=== PATIENT | male | born 1985 | race Two or more races ===

== ENCOUNTER 2017-02-19 10:39 | Emergency (ER) | payer BC, OTHER ==
--- NOTE | 2017-02-19 10:58 | EDM.PDOC ---
ED HPI GENERAL MEDICAL PROBLEM - General Chief Complaint: Gastrointestinal Problem Stated Complaint: ? HEMOGLOBIN CHECK Time Seen by Provider: 02/19/17 10:58 Source of Information: Reports: Patient, Old records, RN, RN notes reviewed History Limitations: Reports: No limitations - History of Present Illness INITIAL COMMENTS - FREE TEXT/NARRATIVE: Pt had a live biopsy yesterday, and became concerned due to some mild RUQ tenderness today. He called his doctor and was advised to come to the ER for blood test and US. Denies fever, chills, N/V. Onset: gradual Onset Date: 02/19/17 Duration: Constant Location: Reports: abdomen Quality: Reports: Dull Severity: mild Improves with: Reports: None Worsens with: Reports: None Associated Symptoms: Reports: no other symptoms Right Middle Flank Pain Score (Numeric/FACES): 4 - Related Data Allergies Allergy/AdvReac Type Severity Reaction Status Date / Time bupropion Allergy Cannot Verified 02/19/17 11:40 Remember Home Meds: Home Meds Omeprazole 20 mg PO DAILY 07/07/16 [History] Psyllium Husk [Metamucil] 1 dose PO DAILY PRN 09/04/16 [History] Acetaminophen [Tylenol] 650 mg PO Q4H PRN 09/07/16 [History] Past Medical History HEENT History: Reports: Impaired vision, Other (see below) Other HEENT History: wears glasses Cardiovascular History: Reports: Other (see below) Other Cardiovascular History: mitral valve regurgitation Respiratory History: Reports: None Gastrointestinal History: Reports: GERD, Other (see below) (fatty liver infiltrate) Genitourinary History: Reports: None Musculoskeletal History: Reports: None Neurological History: Reports: None Psychiatric History: Reports: Anxiety, Panic attack Endocrine/Metabolic History: Reports: None Hematologic History: Reports: None Immunologic History: Reports: None Oncologic (Cancer) History: Reports: None Dermatologic History: Reports: None - Infectious Disease History Infectious Disease History: Reports: Chicken pox - Past Surgical History HEENT Surgical History: Reports: None GI Surgical History: Reports: Appendectomy Male Surgical History: Reports: None Social & Family History - Family History Family Medical History: Noncontributory - Tobacco Use Smoking Status *Q: Former Smoker Used Tobacco, but Quit: Yes Month Tobacco Last Used: 10/29/2009 Second Hand Smoke Exposure: No - Caffeine Use Caffeine Use: Reports: Soda - Alcohol Use Days Per Week of Alcohol Use: 7 Number of Drinks Per Day: 1 Total Drinks Per Week: 7 - Recreational Drug Use Recreational Drug Use: No - Living Situation & Occupation Living situation: Reports: Occupation: student (and employed) ED ROS GENERAL - Review of Systems Review Of Systems: ROS reveals no pertinent complaints other than HPI. ED EXAM, GENERAL - Physical Exam Exam: See Below Exam Limited By: No limitations General Appearance: alert, WD/WN, no apparent distress Head: atraumatic, normocephalic Respiratory/Chest: no respiratory distress, lungs clear, normal breath sounds, no accessory muscle use, chest non-tender Cardiovascular: regular rate, rhythm GI/Abdominal: normal bowel sounds, no distention, tender (mild RUQ). No: guarding, rigid, rebound Back Exam: normal inspection. No: CVA tenderness (L), CVA tenderness (R) Extremities: normal inspection Neurological: alert, oriented, CN II-XII intact, normal cognition, normal gait, no motor/sensory deficits Psychiatric: normal affect, normal mood Skin Exam: Warm, Dry, Intact, Normal color, No rash Course - Vital Signs Last Recorded V/S: Last Vital Signs Temp 36.6 C 02/19/17 10:50 Pulse 45 L 02/19/17 12:35 Resp 16 02/19/17 12:35 BP 170/99 H 02/19/17 12:35 Pulse Ox 98 02/19/17 12:35 - Orders/Labs/Meds Labs: Laboratory Tests 02/19/17 02/19/17 02/19/17 Range/Units 11:10 11:10 11:10 WBC 7.7 (5.0-10.0) 10^3/uL RBC 5.35 (4.6-6.2) 10^6/uL Hgb 15.2 (14.0-18.0) g/dL Hct 44.3 (40.0-54.0) % MCV 82.8 (80-100) fL MCH 28.4 (27.0-34.0) pg MCHC 34.3 (33.0-35.0) g/dL Plt Count 220 (150-450) 10^3/uL Neut % (Auto) 50.0 (42.2-75.2) % Lymph % (Auto) 39.4 (20.5-50.1) % [place] % (Auto) 8.2 H (2-8) % Eos % (Auto) 2.0 (1.0-3.0) % Baso % (Auto) 0.4 (0.0-1.0) % PT 10.2 (9.0-12.0) SEC INR 1.0 (0.9-1.2) APTT 25.7 (22.0-34.0) SEC Sodium 138 (135-145) mmol/L Potassium 4.0 (3.6-5.0) mmol/L Chloride 107 (101-111) mmol/L Carbon Dioxide 27.0 (21.0-31.0) mmol/L Anion Gap 8.0 BUN 15 (7-18) mg/dL Creatinine 1.0 (0.6-1.3) mg/dL Est Cr Clr Drug Dosing 125.64 mL/min Estimated GFR (MDRD) > 60 BUN/Creatinine Ratio 15.00 Glucose 101 (74-105) mg/dL Calcium 9.6 (8.4-10.2) mg/dl Total Bilirubin 0.6 (0.2-1.0) mg/dL AST 49 H (10-42) IU/L ALT 110 H (10-60) IU/L Alkaline Phosphatase 102 (42-121) IU/L Total Protein 7.1 (6.7-8.2) g/dl Albumin 4.4 (3.2-5.5) g/dl Globulin 2.7 Albumin/Globulin Ratio 1.63 Amylase 37 (28-100) U/L Lipase 30 (22-51) U/L Urine Color (YELLOW) Urine Appearance (CLEAR) Urine pH (5.0-9.0) Ur Specific [place] (1.005-1.030) Urine Protein (NEGATIVE) Urine Glucose (UA) (NEGATIVE) Urine Ketones (NEGATIVE) Urine Occult Blood (NEGATIVE) Urine Nitrite (NEGATIVE) Urine Bilirubin (NEGATIVE) Urine Urobilinogen (0.2-1.0) mg/dL Ur Leukocyte Esterase (NEGATIVE) Urine RBC /HPF Urine WBC (0-5/HPF) /HPF Ur Epithelial Cells /HPF Urine Bacteria (0-FEW/HPF) /HPF Urine Opiates Screen (NEGATIVE) Ur Oxycodone Screen (NEGATIVE) Urine Methadone Screen (NEGATIVE) Ur Barbiturates Screen (NEGATIVE) U Tricyclic Antidepress (NEGATIVE) Ur Phencyclidine Scrn (NEGATIVE) Ur Amphetamine Screen (NEGATIVE) U Methamphetamines Scrn (NEGATIVE) Urine MDMA Screen (NEGATIVE) U Benzodiazepines Scrn (NEGATIVE) Urine Cocaine Screen (NEGATIVE) U Marijuana (THC) Screen (NEGATIVE) 02/19/17 02/19/17 Range/Units 11:28 11:28 WBC (5.0-10.0) 10^3/uL RBC (4.6-6.2) 10^6/uL Hgb (14.0-18.0) g/dL Hct (40.0-54.0) % MCV (80-100) fL MCH (27.0-34.0) pg MCHC (33.0-35.0) g/dL Plt Count (150-450) 10^3/uL Neut % (Auto) (42.2-75.2) % Lymph % (Auto) (20.5-50.1) % [place] % (Auto) (2-8) % Eos % (Auto) (1.0-3.0) % Baso % (Auto) (0.0-1.0) % PT (9.0-12.0) SEC INR (0.9-1.2) APTT (22.0-34.0) SEC Sodium (135-145) mmol/L Potassium (3.6-5.0) mmol/L Chloride (101-111) mmol/L Carbon Dioxide (21.0-31.0) mmol/L Anion Gap BUN (7-18) mg/dL Creatinine (0.6-1.3) mg/dL Est Cr Clr Drug Dosing mL/min Estimated GFR (MDRD) BUN/Creatinine Ratio Glucose (74-105) mg/dL Calcium (8.4-10.2) mg/dl Total Bilirubin (0.2-1.0) mg/dL AST (10-42) IU/L ALT (10-60) IU/L Alkaline Phosphatase (42-121) IU/L Total Protein (6.7-8.2) g/dl Albumin (3.2-5.5) g/dl Globulin Albumin/Globulin Ratio Amylase (28-100) U/L Lipase (22-51) U/L Urine Color Yellow (YELLOW) Urine Appearance Clear (CLEAR) Urine pH 5.5 (5.0-9.0) Ur Specific [place] 1.025 (1.005-1.030) Urine Protein Negative (NEGATIVE) Urine Glucose (UA) Negative (NEGATIVE) Urine Ketones Negative (NEGATIVE) Urine Occult Blood Negative (NEGATIVE) Urine Nitrite Negative (NEGATIVE) Urine Bilirubin Negative (NEGATIVE) Urine Urobilinogen 0.2 (0.2-1.0) mg/dL Ur Leukocyte Esterase Negative (NEGATIVE) Urine RBC 0-5 /HPF Urine WBC 0-5 (0-5/HPF) /HPF Ur Epithelial Cells Occasional /HPF Urine Bacteria Few (0-FEW/HPF) /HPF Urine Opiates Screen Negative (NEGATIVE) Ur Oxycodone Screen Negative (NEGATIVE) Urine Methadone Screen Negative (NEGATIVE) Ur Barbiturates Screen Negative (NEGATIVE) U Tricyclic Antidepress Negative (NEGATIVE) Ur Phencyclidine Scrn Negative (NEGATIVE) Ur Amphetamine Screen Negative (NEGATIVE) U Methamphetamines Scrn Negative (NEGATIVE) Urine MDMA Screen Negative (NEGATIVE) U Benzodiazepines Scrn Negative (NEGATIVE) Urine Cocaine Screen Negative (NEGATIVE) U Marijuana (THC) Screen Positive H (NEGATIVE) - Radiology Interpretation Free Text/Narrative:: US RUQ: post-biopsy changes, no hemorrhage; see Rad. report. Departure - Departure Time of Disposition: 12:21 Disposition: Home, Self-Care 01 Condition: good Clinical Impression: History of liver biopsy, Postop check Instructions: Liver Biopsy, Care After, [id number], Liver Biopsy, Nonalcoholic Fatty Liver Disease Diet Forms: ED Department Discharge Additional Instructions: Rx: Zofran 4mg Follow up with your doctor as previously planned.
[2017-02-19 11:38] LABS: CHLORIDE,CL 107 mmol/L (101-111); SODIUM,NA 138 mmol/L (135-145)
[2017-02-19 12:37] VITALS: BP 170/99
== END 2017-02-19 12:34 | disposition home or self-care (01) ==
LOC: DL.ED 10:39
DX: G89.18 Other acute postprocedural pain (principal); R10.11 Right upper quadrant pain; K21.9 Gastro-esophageal reflux disease without esophagitis; Z90.89 Acquired absence of other organs; Z98.890 Other specified postprocedural states; Z79.899 Other long term (current) drug therapy; Z88.8 Allergy status to other drugs, medicaments and biological substances
CPT/HCPCS: 36415; 76705; 80053; 80305; 81001; 82150; 83690; 85025; 85610; 85730; 99284

== ENCOUNTER 2017-12-22 07:29 | Emergency (ER) | payer BC, OTHER ==
[2017-12-22 08:04] VITALS: BP 140/79
--- NOTE | 2017-12-22 08:25 | EDM.PDOC ---
ED HPI GENERAL MEDICAL PROBLEM - General Chief Complaint: Abdominal Pain Stated Complaint: DOESNT FEEL GOOD [id number] Time Seen by Provider: 12/22/17 08:10 Source of Information: Reports: Patient, RN, RN Notes Reviewed History Limitations: Reports: No Limitations - History of Present Illness INITIAL COMMENTS - FREE TEXT/NARRATIVE: Rocael 32 yo male who presents to the ED today due to pain in his right groin area that started last night. Reports that the pain has been off and on since that time. This am when he woke up he started feeling dizzy and like he was going to pass out. He relates that he started to develop generalized abd pain at that time as well. He reports that this feels like his prior reflux sx that he has had in the past. Has not taken his priolsec yet this am. Patient denies flank pain, hematuria, or dysuria. Reports nausea no emesis. He further reports that he has has sinus congestion for the last couple days and has been medicating himself with claratin OTC. Reports runny nose and sinus congestion. Denies fever or body aches. Onset: Sudden Onset Date: 12/21/17 Onset Time: 20:00 Duration: Getting Worse, Intermittent Location: Reports: Abdomen, Other (right groin) Quality: Reports: Burning, Sharp Severity: Moderate Improves with: Reports: None Worsens with: Reports: Rest Context: Reports: Lifting (reports that he does lift weights) Associated Symptoms: Reports: Chest Pain, Nausea/Vomiting, Weakness Right Groin Pain Score (Numeric/FACES): 7 - Related Data Allergies Allergy/AdvReac Type Severity Reaction Status Date / Time bupropion Allergy Cannot Verified 02/19/17 11:40 Remember Home Meds: Home Meds Omeprazole 20 mg PO DAILY 07/07/16 [History] Psyllium Husk [Metamucil] 1 dose PO DAILY PRN 09/04/16 [History] Acetaminophen [Tylenol] 650 mg PO Q4H PRN 09/07/16 [History] Past Medical History HEENT History: Reports: Impaired Vision, Other (See Below) Other HEENT History: wears glasses Cardiovascular History: Reports: Other (See Below) Other Cardiovascular History: mitral valve regurgitation Respiratory History: Reports: None Gastrointestinal History: Reports: GERD (Takes prilosec at home) Other Gastrointestinal History: fatty liver with elevated lft's Genitourinary History: Reports: None Musculoskeletal History: Reports: None Neurological History: Reports: None Psychiatric History: Reports: Anxiety, Panic Attack Endocrine/Metabolic History: Reports: None Hematologic History: Reports: None Immunologic History: Reports: None Oncologic (Cancer) History: Reports: None Dermatologic History: Reports: None - Infectious Disease History Infectious Disease History: Reports: Chicken Pox - Past Surgical History Male Surgical History: Reports: None Musculoskeletal Surgical History: Reports: Other (See Below) Other Musculoskeletal Surgeries/Procedures:: Fracture right arm Social & Family History - Family History Family Medical History: Noncontributory - Tobacco Use Smoking Status *Q: Never Smoker Used Tobacco, but Quit: Yes Month Tobacco Last Used: 10/29/2009 Second Hand Smoke Exposure: No - Caffeine Use Caffeine Use: Reports: Coffee, Energy Drinks, Soda, Tea - Alcohol Use Days Per Week of Alcohol Use: 2 Number of Drinks Per Day: 6 Total Drinks Per Week: 12 - Recreational Drug Use Recreational Drug Use: Yes Recreational Drug Type: Reports: Marijuana/Hashish - Living Situation & Occupation Living situation: Reports: Occupation: Student ED ROS GENERAL - Review of Systems Review Of Systems: ROS reveals no pertinent complaints other than HPI. ED EXAM, GI/ABD - Physical Exam Exam: See Below Exam Limited By: No Limitations General Appearance: Alert, WD/WN, No Apparent Distress Eyes: Bilateral: Normal Appearance Ears: Normal External Exam, Other (redness noted to left external ear cannal- patient reports q-tip usage) Nose: Normal Inspection, Normal Mucosa Throat/Mouth: Normal Inspection, Normal Lips, Normal Oropharynx Head: Atraumatic, Normocephalic Neck: Normal Inspection, Supple Respiratory/Chest: No Respiratory Distress, Lungs Clear, Normal Breath Sounds, No Accessory Muscle Use Cardiovascular: Normal Peripheral Pulses, Regular Rate, Rhythm, No Gallop, No Murmur, No Rub GI/Abdominal Exam: Normal Bowel Sounds, Soft, Non-Tender, No Organomegaly, No Distention, Tender (Generalized tenderness with palpation ) (Male) Exam: No Hernia, Normal Inspection Rectal (Males) Exam: Deferred Extremities: Normal Inspection, Normal Range of Motion, Normal Capillary Refill Neurological: Alert, Oriented, CN II-XII Intact Psychiatric: Normal Affect, Normal Mood Skin Exam: Warm, Dry Lymphatic: No Adenopathy EKG INTERPRETATION EKG Date: 12/22/17 Time: 08:16 Rhythm: NSR Rate (Beats/Min): 78 [place]: Normal P-Wave: Present QRS: Normal ST-T: Normal QT: Normal Comparison: No Change Course - Vital Signs Last Recorded V/S: Last Vital Signs Temp 98.6 F 12/22/17 08:04 Pulse 73 12/22/17 08:04 Resp 16 12/22/17 08:04 BP 140/79 12/22/17 08:04 Pulse Ox 97 12/22/17 08:04 - Orders/Labs/Meds Orders: Active Orders 24 hr Category Date Time Status EKG Documentation Completion [RC] STAT Care 12/22/17 08:18 Active Peripheral IV Care [RC] . DIRECTED Care 12/22/17 08:19 Active Abdomen Pelvis w Cont [CT] Urgent Exams 12/22/17 09:21 Taken Sodium Chloride 0.9% [Saline Flush] Med 12/22/17 08:18 Active 10 ml FLUSH ASDIRECTED PRN Peripheral IV Insertion Adult [OM.PC] Stat Oth 12/22/17 08:18 Ordered Medication Orders Sodium Chloride (Saline Flush) 10 ml FLUSH ASDIRECTED PRN PRN Reason: Keep Vein Open Last Admin: 12/22/17 08:44 Dose: 10 ml Labs: Laboratory Tests 12/22/17 12/22/17 12/22/17 Range/Units 08:30 08:30 08:38 WBC 11.2 H (5.0-10.0) 10^3/uL RBC 5.48 (4.6-6.2) 10^6/uL Hgb 16.0 (14.0-18.0) g/dL Hct 45.1 (40.0-54.0) % MCV 82.3 (80-100) fL MCH 29.2 (27.0-34.0) pg MCHC 35.5 H (33.0-35.0) g/dL Plt Count 191 (150-450) 10^3/uL Neut % (Auto) 76.9 H (42.2-75.2) % Lymph % (Auto) 15.5 L (20.5-50.1) % [place] % (Auto) 5.4 (2-8) % Eos % (Auto) 2.0 (1.0-3.0) % Baso % (Auto) 0.2 (0.0-1.0) % Add Manual Diff Yes Neutrophils % (Manual) 65 (42-75) % Band Neutrophils % 8 % Lymphocytes % (Manual) 20 (20-50) % Monocytes % (Manual) 4 (2-8) % Eosinophils % (Manual) 2 (1-3) % Myelocytes % 1 Toxic Granulation 1+ slight Platelet Estimate Adequate Giant Platelets Few Sodium 139 (135-145) mmol/L Potassium 3.8 (3.6-5.0) mmol/L Chloride 106 (101-111) mmol/L Carbon Dioxide 23.0 (21.0-31.0) mmol/L Anion Gap 13.8 BUN 15 (7-18) mg/dL Creatinine 0.9 (0.6-1.3) mg/dL Est Cr Clr Drug Dosing 138.27 mL/min Estimated GFR (MDRD) > 60 BUN/Creatinine Ratio 16.66 Glucose 97 (74-105) mg/dL Calcium 9.4 (8.4-10.2) mg/dl Total Bilirubin 1.1 H (0.2-1.0) mg/dL AST 50 H (10-42) IU/L ALT 94 H (10-60) IU/L Alkaline Phosphatase 101 (42-121) IU/L Total Protein 7.4 (6.7-8.2) g/dl Albumin 4.4 (3.2-5.5) g/dl Globulin 3.0 Albumin/Globulin Ratio 1.47 Amylase 32 (28-100) U/L Lipase 8 L (22-51) U/L Urine Color Yellow (YELLOW) Urine Appearance Clear (CLEAR) Urine pH 8.5 (5.0-9.0) Ur Specific [place] 1.015 (1.005-1.030) Urine Protein Trace H (NEGATIVE) Urine Glucose (UA) Negative (NEGATIVE) Urine Ketones Negative (NEGATIVE) Urine Occult Blood Negative (NEGATIVE) Urine Nitrite Negative (NEGATIVE) Urine Bilirubin Negative (NEGATIVE) Urine Urobilinogen 0.2 (0.2-1.0) mg/dL Ur Leukocyte Esterase Negative (NEGATIVE) Urine RBC 0-5 /HPF Urine WBC 0-5 (0-5/HPF) /HPF Ur Epithelial Cells Rare /HPF Amorphous Sediment Few (0/HPF) /HPF Urine Bacteria Few (0-FEW/HPF) /HPF Urine Opiates Screen (NEGATIVE) Ur Oxycodone Screen (NEGATIVE) Urine Methadone Screen (NEGATIVE) Ur Barbiturates Screen (NEGATIVE) U Tricyclic Antidepress (NEGATIVE) Ur Phencyclidine Scrn (NEGATIVE) Ur Amphetamine Screen (NEGATIVE) U Methamphetamines Scrn (NEGATIVE) Urine MDMA Screen (NEGATIVE) U Benzodiazepines Scrn (NEGATIVE) Urine Cocaine Screen (NEGATIVE) U Marijuana (THC) Screen (NEGATIVE) Ethyl Alcohol < 5 mg/dL 12/22/17 Range/Units 08:38 WBC (5.0-10.0) 10^3/uL RBC (4.6-6.2) 10^6/uL Hgb (14.0-18.0) g/dL Hct (40.0-54.0) % MCV (80-100) fL MCH (27.0-34.0) pg MCHC (33.0-35.0) g/dL Plt Count (150-450) 10^3/uL Neut % (Auto) (42.2-75.2) % Lymph % (Auto) (20.5-50.1) % [place] % (Auto) (2-8) % Eos % (Auto) (1.0-3.0) % Baso % (Auto) (0.0-1.0) % Add Manual Diff Neutrophils % (Manual) (42-75) % Band Neutrophils % % Lymphocytes % (Manual) (20-50) % Monocytes % (Manual) (2-8) % Eosinophils % (Manual) (1-3) % Myelocytes % Toxic Granulation Platelet Estimate Giant Platelets Sodium (135-145) mmol/L Potassium (3.6-5.0) mmol/L Chloride (101-111) mmol/L Carbon Dioxide (21.0-31.0) mmol/L Anion Gap BUN (7-18) mg/dL Creatinine (0.6-1.3) mg/dL Est Cr Clr Drug Dosing mL/min Estimated GFR (MDRD) BUN/Creatinine Ratio Glucose (74-105) mg/dL Calcium (8.4-10.2) mg/dl Total Bilirubin (0.2-1.0) mg/dL AST (10-42) IU/L ALT (10-60) IU/L Alkaline Phosphatase (42-121) IU/L Total Protein (6.7-8.2) g/dl Albumin (3.2-5.5) g/dl Globulin Albumin/Globulin Ratio Amylase (28-100) U/L Lipase (22-51) U/L Urine Color (YELLOW) Urine Appearance (CLEAR) Urine pH (5.0-9.0) Ur Specific [place] (1.005-1.030) Urine Protein (NEGATIVE) Urine Glucose (UA) (NEGATIVE) Urine Ketones (NEGATIVE) Urine Occult Blood (NEGATIVE) Urine Nitrite (NEGATIVE) Urine Bilirubin (NEGATIVE) Urine Urobilinogen (0.2-1.0) mg/dL Ur Leukocyte Esterase (NEGATIVE) Urine RBC /HPF Urine WBC (0-5/HPF) /HPF Ur Epithelial Cells /HPF Amorphous Sediment (0/HPF) /HPF Urine Bacteria (0-FEW/HPF) /HPF Urine Opiates Screen Negative (NEGATIVE) Ur Oxycodone Screen Negative (NEGATIVE) Urine Methadone Screen Negative (NEGATIVE) Ur Barbiturates Screen Negative (NEGATIVE) U Tricyclic Antidepress Negative (NEGATIVE) Ur Phencyclidine Scrn Negative (NEGATIVE) Ur Amphetamine Screen Negative (NEGATIVE) U Methamphetamines Scrn Negative (NEGATIVE) Urine MDMA Screen Negative (NEGATIVE) U Benzodiazepines Scrn Negative (NEGATIVE) Urine Cocaine Screen Negative (NEGATIVE) U Marijuana (THC) Screen Positive H (NEGATIVE) Ethyl Alcohol mg/dL Meds: Medications Generic Name Dose Route Start Last Admin Trade Name Freq PRN Reason Stop Dose Admin Sodium Chloride 10 ml 12/22/17 08:18 12/22/17 08:44 Saline Flush FLUSH 10 ml ASDIRECTED PRN Administration Keep Vein Open Discontinued Medications Generic Name Dose Route Start Last Admin Trade Name Freq PRN Reason Stop Dose Admin Al Hydroxide/Mg Hydroxide 30 ml 12/22/17 09:19 12/22/17 10:23 Gi Cocktail PO 12/22/17 09:20 30 ml ONETIME ONE Administration Iopamidol 100 ml 12/22/17 09:21 12/22/17 10:17 Isovue-300 (61%) IVPUSH 12/22/17 09:22 100 ml ONETIME ONE Administration Departure - Departure Time of Disposition: 10:39 Disposition: Home, Self-Care 01 Condition: Fair Clinical Impression: Meckel diverticulum - Discharge Information Instructions: Constipation, Adult, Esey-uh-Ngny, Meckel Diverticulum, Abdominal Pain, Adult, [id number] Forms: ED Department Discharge Additional Instructions: Miralax or generic like once or twice a day everyday Drink plenty of water Make an appointment with your primary care facility for referral to Gastroenterology consult - My Orders Last 24 Hours: My Active Orders 12/22/17 08:18 EKG Documentation Completion [RC] STAT Sodium Chloride 0.9% [Saline Flush] 10 ml FLUSH ASDIRECTED PRN Peripheral IV Insertion Adult [OM.PC] Stat 12/22/17 08:19 Peripheral IV Care [RC] . DIRECTED 12/22/17 09:21 Abdomen Pelvis w Cont [CT] Urgent - Assessment/Plan Last 24 Hours: My Active Orders 12/22/17 08:18 EKG Documentation Completion [RC] STAT Sodium Chloride 0.9% [Saline Flush] 10 ml FLUSH ASDIRECTED PRN Peripheral IV Insertion Adult [OM.PC] Stat 12/22/17 08:19 Peripheral IV Care [RC] . DIRECTED 12/22/17 09:21 Abdomen Pelvis w Cont [CT] Urgent
[2017-12-22] MEDS: Sodium Chloride 0.9% 10 ML Syringe FLUSH PRN (08:44)
[2017-12-22 09:00] LABS: CHLORIDE,CL 106 mmol/L (101-111); SODIUM,NA 139 mmol/L (135-145)
[2017-12-22] MEDS: Iopamidol 612 MG/ML 100 ML Bottle IVPUSH ONE (10:17)
[2017-12-22] MEDS: GI Cocktail Oral Solution 30 ML PO ONE (10:23)
--- NOTE | 2017-12-22 10:52 | CT ---
CLINICAL HISTORY: 32-year-old afebrile 243 pound male with cardiac mitral valve disease and generaliz ed abdominal/right groin pain who has had previous appendectomy. (WBC 11,200) SCAN TECHNIQUE: Volume acquisition of data from an emergency CT scan abdomen obtained without oral co ntrast but during the intravenous administration 100 cc nonionic Isovue contrast while the patient wa s lying supine on the Siemens multislice scanner [place], [place]. All data archived in the PAC system for storage, reformatting and study. INTERPRETATION: Abnormal. 1. *Two discrete intraluminal calcifications in what appears to be an isolated segment small bowel RL Q (one smaller calcification present on previous exam 23 October 2016 this patient reported to have trejo d "appendectomy"). Stones in a Meckel's diverticulum? Appendiceal "stump"? NOTE: Similar large oval calcification (pill or tablet?) identified in the rectosigmoid colon. 2. No associated acute inflammatory changes right lower quadrant, i.e., no inflammatory "dirty" perit cordoba fat, abscess, or free air. 3. Normal gallbladder, liver, stomach, spleen, pancreas, adrenal glands and kidneys. No sign of danial lithiasis, nephrolithiasis or obstructive uropathy. Symmetrically distended normal urinary bladder. P rostate and and seminal vesicles unremarkable. 4. No new pelvic or abdominal mass lesion, pelvic/mesenteric/retroperitoneal lymphadenopathy, or sign s of mechanical bowel obstruction. No ascites. 5. Normal caliber aortoiliac vessels. Lumbar spine unremarkable. Normal heart. Lung bases clear. CONCLUSION: Intraluminal calcifications bowel adjacent terminal ileum (Meckel's diverticulum?). No acute intraperitoneal inflammation or other abnormalities.
--- NOTE | 2017-12-22 13:55 | EKG ---
12/22/2017 - FELIX WEBB - FINDINGS: The patient has a heart rate of 78 beats per minute. Sinus rhythm, normal axis, normal QRS complex, normal T waves. No ST-segment changes. [facility] /[id number]
== END 2017-12-22 10:49 | disposition home or self-care (01) ==
LOC: DL.ED 07:29
DX: Q43.0 Meckel's diverticulum (displaced) (hypertrophic) (principal); Z88.8 Allergy status to other drugs, medicaments and biological substances; Z79.899 Other long term (current) drug therapy; Z87.891 Personal history of nicotine dependence
CPT/HCPCS: 36415; 74177; 80053; 80305; 81001; 82150; 83690; 85025; 93005; 99284; A9270; G0480; J7050; Q9967

== ENCOUNTER 2018-01-18 05:30 | Day surgery (SDC) | payer BC ==
[2018-01-18] MEDS ORDERED: fentaNYL 100 MCG/2 ML SDV IV ONE ×3 (05:31→06:36)
[2018-01-18] MEDS ORDERED: Midazolam 1 MG/ML 2 ML SDV IV ONE ×7 (05:31→06:43)
[2018-01-18] MEDS ORDERED: Dextrose 5%-0.45% NaCl 1,000 ML IV SCH (06:00)
[2018-01-18] MEDS ORDERED: Sodium Chloride 0.9% 10 ML Syringe FLUSH PRN (06:00)
[2018-01-18] MEDS ORDERED: fentaNYL 100 MCG/2 ML SDV ONE (06:15)
[2018-01-18] MEDS ORDERED: Midazolam 1 MG/ML 2 ML SDV ONE (06:15)
--- NOTE | 2018-01-18 07:55 | OR ---
DATE: 01/18/2018 PROCEDURE: Total colonoscopy and terminal ileoscopy. INSTRUMENT USED: PCF-H180AL Olympus video colonoscope. PREMEDICATIONS: Fentanyl 100 mcg intravenous, Versed 4 mg intravenous. The procedure was done under pulse oximetry, BP recording, and optical instrument inspector. INDICATION: The patient with alteration in bowel habits and abdominal pain, unexplained, not responsive to medical measures. Colonoscopic examination is done for detection of any polypoid lesions and removal, endoscopic hemostasis therapy if needed. DESCRIPTION OF PROCEDURE: Initial rectal exam was unremarkable. Rigid anoscopy was normal. The colonoscope was passed with ease up to the ileocecal area, photographs were taken of the normal-appearing cecum. The tip of the scope was passed through thin left ileocecal junction to visualize terminal part of the normal-appearing ileum, photographs were taken. No bleeding was noted from any of the visualized areas at the commencement of the examination. No stricture. No vascular ectasia. No large isolated ulcerations seen. No evidence of diffuse inflammatory bowel disease in the form of friability, contact bleeding, or ulcerations. No polyp or tumor mass identified. Probing the proximal sides of folds and flexures, using adequate distention and clearing of the stool material, withdrawal of the scope was made, cecum to rectum time over 6 minutes. No bleeding was noted from any of the visualized areas at the completion of examination. IMPRESSION: Normal study. The patient tolerated the procedure well. MODL /[id number]
[2018-01-18 08:52] VITALS: BP 131/92
== END 2018-01-18 08:44 | disposition home or self-care (01) ==
LOC: DL.ENDO 05:30
PROVIDERS: ATTEND Internal Medicine Gastroenterology
DX: R19.4 Change in bowel habit (principal); K21.9 Gastro-esophageal reflux disease without esophagitis; F41.1 Generalized anxiety disorder; K76.0 Fatty (change of) liver, not elsewhere classified
CPT/HCPCS: 45378; J7042; J2250; J3010

== ENCOUNTER 2018-03-08 09:02 | Emergency (ER) | payer BC ==
[2018-03-08] MEDS ORDERED: Sodium Chloride 0.9% 10 ML Syringe FLUSH PRN (09:21)
--- NOTE | 2018-03-08 09:40 | EDM.PDOC ---
ED HPI GENERAL MEDICAL PROBLEM - General Chief Complaint: Abdominal Pain Stated Complaint: UPPER ABD PAIN X 3 DAYS Time Seen by Provider: 03/08/18 09:10 Source of Information: Reports: Patient, RN, RN Notes Reviewed History Limitations: Reports: No Limitations - History of Present Illness INITIAL COMMENTS - FREE TEXT/NARRATIVE: Pt presents to the ER with c/o epigastric pain since Wednesday afternoon. He states the pain comes and goes and is a cramping pain at an 8/10 when present. He admits to diarrhea, and upset stomach, no vomiting. Admits to chills, does not feel he has had a fever. Denies SOB. States the pain has radiated up into the left chest at times. 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 Admits to marijuana, but denies any other drug use. Onset: Gradual Onset Date: 03/06/18 Duration: Intermittent Location: Reports: Abdomen Quality: Reports: Other (cramping) Severity: Moderate Improves with: Reports: None Worsens with: Reports: None Associated Symptoms: Reports: Nausea/Vomiting Epigastric Pain Score (Numeric/FACES): 10 - Related Data Allergies Allergy/AdvReac Type Severity Reaction Status Date / Time bupropion Allergy Cannot Verified 03/08/18 09:19 Remember Home Meds: Home Meds Omeprazole 20 mg PO DAILY 07/07/16 [History] Psyllium Husk [Metamucil] 1 dose PO DAILY PRN 09/04/16 [History] Acetaminophen [Tylenol] 650 mg PO Q4H PRN 09/07/16 [History] Chlorpheniramine Maleate 4 mg PO DAILY 12/31/17 [History] Polyethylene Glycol 3350 [Miralax] 17 g PO DAILY 12/31/17 [History] Past Medical History HEENT History: Reports: Epistaxis, Impaired Vision, Other (See Below) Other HEENT History: wears glasses Cardiovascular History: Reports: Other (See Below) Other Cardiovascular History: mitral valve regurgitation Respiratory History: Reports: None Gastrointestinal History: Reports: Chronic Constipation, GERD, Other (See Below) Other Gastrointestinal History: fatty liver with elevated lft's. HEPATIC STEATOSIS Genitourinary History: Reports: None, Renal Calculus Musculoskeletal History: Reports: Back Pain, Chronic Neurological History: Reports: None Psychiatric History: Reports: Anxiety, Panic Attack Endocrine/Metabolic History: Reports: None Hematologic History: Reports: None Immunologic History: Reports: None Oncologic (Cancer) History: Reports: None Dermatologic History: Reports: None - Infectious Disease History Infectious Disease History: Reports: Chicken Pox, Measles, Shingles - Past Surgical History Head Surgeries/Procedures: Reports: None HEENT Surgical History: Reports: None Respiratory Surgical History: Reports: None GI Surgical History: Reports: Appendectomy, EGD Male Surgical History: Reports: None, Circumcision Musculoskeletal Surgical History: Reports: Other (See Below) Other Musculoskeletal Surgeries/Procedures:: Fracture right arm Social & Family History - Family History Family Medical History: Noncontributory - Tobacco Use Smoking Status *Q: Never Smoker - Caffeine Use Caffeine Use: Reports: Coffee, Energy Drinks, Soda, Tea Caffeine Use Comment: 16oz daily - Recreational Drug Use Recreational Drug Use: No - Living Situation & Occupation Living situation: Reports: Occupation: Student ED ROS GENERAL - Review of Systems Review Of Systems: ROS reveals no pertinent complaints other than HPI. ED EXAM, GI/ABD - Physical Exam Exam: See Below Exam Limited By: No Limitations General Appearance: Alert, WD/WN, No Apparent Distress Eyes: Bilateral: Normal Appearance, EOMI Ears: Normal External Exam, Hearing Grossly Normal Nose: Normal Inspection Throat/Mouth: Normal Inspection, Normal Voice, No Airway Compromise Head: Atraumatic, Normocephalic Neck: Normal Inspection, Supple, Non-Tender, Full Range of Motion Respiratory/Chest: No Respiratory Distress, Lungs Clear, Normal Breath Sounds, No Accessory Muscle Use, Chest Non-Tender Cardiovascular: Normal Peripheral Pulses, Regular Rate, Rhythm, No Edema, No Gallop, No JVD, No Murmur, No Rub GI/Abdominal Exam: Normal Bowel Sounds, Soft, Tender (epigastric and RUQ, LUQ) (Male) Exam: Deferred Rectal (Males) Exam: Deferred Back Exam: Normal Inspection, Full Range of Motion, NT Extremities: Normal Inspection, Normal Range of Motion, Non-Tender, Normal Capillary Refill, No Pedal Edema Neurological: Alert, Oriented, CN II-XII Intact, Normal Cognition, Normal Gait, Normal Reflexes, No Motor/Sensory Deficits Psychiatric: Normal Affect, Normal Mood Skin Exam: Warm, Dry, Intact, Normal Color, No Rash Lymphatic: No Adenopathy EKG INTERPRETATION EKG Date: 03/08/18 Time: 09:26 Rhythm: NSR Rate (Beats/Min): 76 [place]: Normal P-Wave: Present QRS: Normal ST-T: Normal QT: Normal Comparison: No Change Course - Vital Signs Last Recorded V/S: Last Vital Signs Temp 97.7 F 03/08/18 09:14 Pulse 82 03/08/18 09:14 Resp 16 03/08/18 09:14 BP 134/82 03/08/18 09:14 Pulse Ox 96 03/08/18 09:14 - Orders/Labs/Meds Orders: Active Orders 24 hr Category Date Time Status EKG Documentation Completion [RC] STAT Care 03/08/18 09:21 Active Peripheral IV Care [RC] . DIRECTED Care 03/08/18 09:21 Active DRUG SCREEN URINE BIORAD [URCHEM] Stat Lab 03/08/18 10:26 Ordered UA W/MICROSCOPIC [URIN] Stat Lab 03/08/18 10:26 Ordered Sodium Chloride 0.9% [Saline Flush] Med 03/08/18 09:21 Active 10 ml FLUSH ASDIRECTED PRN Peripheral IV Insertion Adult [OM.PC] Stat Oth 03/08/18 09:21 Ordered Medication Orders Sodium Chloride (Saline Flush) 10 ml FLUSH ASDIRECTED PRN PRN Reason: Keep Vein Open Last Admin: 03/08/18 09:30 Dose: 10 ml Labs: Laboratory Tests 03/08/18 03/08/18 03/08/18 Range/Units 09:30 09:30 10:26 WBC 11.7 H (5.0-10.0) 10^3/uL RBC 5.25 (4.6-6.2) 10^6/uL Hgb 15.2 (14.0-18.0) g/dL Hct 43.3 (40.0-54.0) % MCV 82.5 (80-100) fL MCH 29.0 (27.0-34.0) pg MCHC 35.1 H (33.0-35.0) g/dL Plt Count 218 (150-450) 10^3/uL Neut % (Auto) 70.6 (42.2-75.2) % Lymph % (Auto) 18.7 L (20.5-50.1) % [place] % (Auto) 8.2 H (2-8) % Eos % (Auto) 2.2 (1.0-3.0) % Baso % (Auto) 0.3 (0.0-1.0) % Sodium 137 (135-145) mmol/L Potassium 4.0 (3.6-5.0) mmol/L Chloride 105 (101-111) mmol/L Carbon Dioxide 26.0 (21.0-31.0) mmol/L Anion Gap 10.0 BUN 15 (7-18) mg/dL Creatinine 0.9 (0.6-1.3) mg/dL Est Cr Clr Drug Dosing 138.27 mL/min Estimated GFR (MDRD) > 60 BUN/Creatinine Ratio 16.66 Glucose 107 H (74-105) mg/dL Calcium 9.3 (8.4-10.2) mg/dl Total Bilirubin 0.6 (0.2-1.0) mg/dL AST 34 (10-42) IU/L ALT 55 (10-60) IU/L Alkaline Phosphatase 120 (42-121) IU/L Troponin I < 0.02 (0.00-0.02) ng/ml Total Protein 7.2 (6.7-8.2) g/dl Albumin 4.2 (3.2-5.5) g/dl Globulin 3.0 Albumin/Globulin Ratio 1.40 Amylase 28 (28-100) U/L Lipase 21 L (22-51) U/L Urine Color Yellow (YELLOW) Urine Appearance Clear (CLEAR) Urine pH 6.5 (5.0-9.0) Ur Specific [place] 1.020 (1.005-1.030) Urine Protein Negative (NEGATIVE) Urine Glucose (UA) Negative (NEGATIVE) Urine Ketones Negative (NEGATIVE) Urine Occult Blood Negative (NEGATIVE) Urine Nitrite Negative (NEGATIVE) Urine Bilirubin Negative (NEGATIVE) Urine Urobilinogen 0.2 (0.2-1.0) mg/dL Ur Leukocyte Esterase Negative (NEGATIVE) Urine RBC Not seen /HPF Urine WBC Not seen (0-5/HPF) /HPF Ur Epithelial Cells Rare /HPF Urine Bacteria Not seen (0-FEW/HPF) /HPF Urine Mucus Not seen /LPF Urine Opiates Screen (NEGATIVE) Ur Oxycodone Screen (NEGATIVE) Urine Methadone Screen (NEGATIVE) Ur Barbiturates Screen (NEGATIVE) U Tricyclic Antidepress (NEGATIVE) Ur Phencyclidine Scrn (NEGATIVE) Ur Amphetamine Screen (NEGATIVE) U Methamphetamines Scrn (NEGATIVE) Urine MDMA Screen (NEGATIVE) U Benzodiazepines Scrn (NEGATIVE) Urine Cocaine Screen (NEGATIVE) U Marijuana (THC) Screen (NEGATIVE) Ethyl Alcohol < 5 mg/dL 03/08/18 Range/Units 10:26 WBC (5.0-10.0) 10^3/uL RBC (4.6-6.2) 10^6/uL Hgb (14.0-18.0) g/dL Hct (40.0-54.0) % MCV (80-100) fL MCH (27.0-34.0) pg MCHC (33.0-35.0) g/dL Plt Count (150-450) 10^3/uL Neut % (Auto) (42.2-75.2) % Lymph % (Auto) (20.5-50.1) % [place] % (Auto) (2-8) % Eos % (Auto) (1.0-3.0) % Baso % (Auto) (0.0-1.0) % Sodium (135-145) mmol/L Potassium (3.6-5.0) mmol/L Chloride (101-111) mmol/L Carbon Dioxide (21.0-31.0) mmol/L Anion Gap BUN (7-18) mg/dL Creatinine (0.6-1.3) mg/dL Est Cr Clr Drug Dosing mL/min Estimated GFR (MDRD) BUN/Creatinine Ratio Glucose (74-105) mg/dL Calcium (8.4-10.2) mg/dl Total Bilirubin (0.2-1.0) mg/dL AST (10-42) IU/L ALT (10-60) IU/L Alkaline Phosphatase (42-121) IU/L Troponin I (0.00-0.02) ng/ml Total Protein (6.7-8.2) g/dl Albumin (3.2-5.5) g/dl Globulin Albumin/Globulin Ratio Amylase (28-100) U/L Lipase (22-51) U/L Urine Color (YELLOW) Urine Appearance (CLEAR) Urine pH (5.0-9.0) Ur Specific [place] (1.005-1.030) Urine Protein (NEGATIVE) Urine Glucose (UA) (NEGATIVE) Urine Ketones (NEGATIVE) Urine Occult Blood (NEGATIVE) Urine Nitrite (NEGATIVE) Urine Bilirubin (NEGATIVE) Urine Urobilinogen (0.2-1.0) mg/dL Ur Leukocyte Esterase (NEGATIVE) Urine RBC /HPF Urine WBC (0-5/HPF) /HPF Ur Epithelial Cells /HPF Urine Bacteria (0-FEW/HPF) /HPF Urine Mucus /LPF Urine Opiates Screen Negative (NEGATIVE) Ur Oxycodone Screen Negative (NEGATIVE) Urine Methadone Screen Negative (NEGATIVE) Ur Barbiturates Screen Negative (NEGATIVE) U Tricyclic Antidepress Negative (NEGATIVE) Ur Phencyclidine Scrn Negative (NEGATIVE) Ur Amphetamine Screen Negative (NEGATIVE) U Methamphetamines Scrn Negative (NEGATIVE) Urine MDMA Screen Negative (NEGATIVE) U Benzodiazepines Scrn Negative (NEGATIVE) Urine Cocaine Screen Negative (NEGATIVE) U Marijuana (THC) Screen Positive H (NEGATIVE) Ethyl Alcohol mg/dL Meds: Medications Generic Name Dose Route Start Last Admin Trade Name Freq PRN Reason Stop Dose Admin Sodium Chloride 10 ml 03/08/18 09:21 03/08/18 09:30 Saline Flush FLUSH 10 ml ASDIRECTED PRN Administration Keep Vein Open Discontinued Medications Generic Name Dose Route Start Last Admin Trade Name Freq PRN Reason Stop Dose Admin Iopamidol 100 ml 03/08/18 11:37 03/08/18 11:39 Isovue-300 (61%) IVPUSH 03/08/18 11:38 100 ml ONETIME ONE Administration Pantoprazole Sodium 40 mg 03/08/18 10:08 03/08/18 10:13 Protonix Iv IVPUSH 03/08/18 10:09 40 mg ONETIME ONE Administration - Radiology Interpretation Free Text/Narrative:: CT Abdomen/Pelvis with contrast: Possible gastritis. Diverticulosis. No other signs of acute intraperitoneal abnormality. Fatty infiltration of the liver. See rad report Departure - Departure Time of Disposition: 12:01 Disposition: Home, Self-Care 01 Condition: Fair Clinical Impression: Gastritis Qualifiers: Gastritis type: unspecified gastritis Chronicity: acute Gastritis bleeding: without bleeding Qualified Code(s): K29.00 - Acute gastritis without bleeding - Discharge Information Instructions: Gastritis, Adult, [id number] Forms: ED Department Discharge Additional Instructions: RX: Carafate Follow up with Dr. Sepulveda this week or next. Drink plenty of water Return to the ER as needed. - My Orders Last 24 Hours: My Active Orders 03/08/18 09:21 EKG Documentation Completion [RC] STAT Peripheral IV Care [RC] . DIRECTED Sodium Chloride 0.9% [Saline Flush] 10 ml FLUSH ASDIRECTED PRN Peripheral IV Insertion Adult [OM.PC] Stat 03/08/18 10:26 DRUG SCREEN URINE BIORAD [URCHEM] Stat UA W/MICROSCOPIC [URIN] Stat - Assessment/Plan Last 24 Hours: My Active Orders 03/08/18 09:21 EKG Documentation Completion [RC] STAT Peripheral IV Care [RC] . DIRECTED Sodium Chloride 0.9% [Saline Flush] 10 ml FLUSH ASDIRECTED PRN Peripheral IV Insertion Adult [OM.PC] Stat 03/08/18 10:26 DRUG SCREEN URINE BIORAD [URCHEM] Stat UA W/MICROSCOPIC [URIN] Stat
[2018-03-08 10:01] LABS: CHLORIDE,CL 105 mmol/L (101-111); SODIUM,NA 137 mmol/L (135-145)
[2018-03-08] MEDS ORDERED: Pantoprazole 40 MG Vial IVPUSH ONE (10:08)
[2018-03-08] MEDS ORDERED: Iopamidol 612 MG/ML 100 ML Bottle IVPUSH ONE (11:37)
--- NOTE | 2018-03-08 11:56 | CT ---
CLINICAL HISTORY: 32-year-old 240 pounds male with severe epigastric abdominal pain (3 days) and WBC 11,700. Previous appendectomy. Patient reported [address] exam possible "Meckel's diverticulum with intraluminal calcifications" RLQ. SCAN TECHNIQUE: Volume acquisition of data from the abdomen and pelvis obtained without oral contrast but during the intravenous and fusion 100 cc nonionic Isovue contrast (3 cc/s via injector) while th e patient was lying supine on the Siemens multislice scanner [place], [place]. All data archived in the PACS system for storage, reformatting axial/sagittal/coronal planes and study. INTERPRETATION: 1. Mild fatty infiltration liver. Pancreas normal size, configuration and homogeneous density. No gallagher creatic mass lesion, abscess, major duct dilatation, or peripancreatic inflammatory "dirty" peritonea l fat. Gallbladder, stomach, spleen unremarkable. 2. Symmetric normal-appearing adrenal glands and kidneys. No sign of renal cortical mass lesion, neph rolithiasis or obstruction. 3. Diverticula splenic flexure and sigmoid colon without associated signs of inflammation. Surgical c lips appendiceal stump RLQ. 4. Normal cardiac silhouette. Lung bases clear. Normal caliber aortoiliac vessels. Lumbar spine unrem arkable. 5. No abdominal or pelvic mass lesion, retroperitoneal lymphadenopathy, signs of mechanical bowel obs truction, ascites or free air. NOTE: Gastric wall appears uniformly mildly thickened. Smoker? Gastritis? No gastric perforation. CONCLUSION: Possible gastritis. Diverticulosis. No other signs of acute intraperitoneal abnormality. Fatty infiltration liver.
[2018-03-08 12:29] VITALS: BP 134/78
--- NOTE | 2018-03-08 19:17 | EKG ---
03/08/2018 - FELIX WEBB - FINDINGS: EKG per my reading, shows sinus rhythm at the rate of 76. [facility] /[id number]
== END 2018-03-08 12:27 | disposition home or self-care (01) ==
LOC: DL.ED 09:02
DX: K29.00 Acute gastritis without bleeding (principal); K21.9 Gastro-esophageal reflux disease without esophagitis; F41.9 Anxiety disorder, unspecified; Z79.899 Other long term (current) drug therapy; Z88.0 Allergy status to penicillin; Z88.8 Allergy status to other drugs, medicaments and biological substances
CPT/HCPCS: 36415; 74177; 80053; 80305; 81001; 82150; 83690; 84484; 85025; 93005; 96374; 99284; C9113; G0480; J7050; Q9967

== ENCOUNTER 2018-12-07 16:37 | Emergency (ER) | payer BC ==
--- NOTE | 2018-12-07 17:39 | EDM.PDOC ---
<Aditi Honeycutt - Last Filed: 12/07/18 19:01> ED HPI GENERAL MEDICAL PROBLEM - General Chief Complaint: General Stated Complaint: FEELS LIKE PASSING OUT Time Seen by Provider: 12/07/18 18:20 Source of Information: Reports: Patient, RN, RN Notes Reviewed History Limitations: Reports: No Limitations - History of Present Illness INITIAL COMMENTS - FREE TEXT/NARRATIVE: Pt to ER with c/o "tunnel vision and dizziness". He states he was going to pick his children up and he felt as if his vision was getting dark, his head hurt, he felt dizzy, and his legs felt like jello. Patient states this came on suddenly. He denies any recent illness, fever, chills, chest pain or SOB. States he has waves of nausea. Patient states he does have some problems with anxiety, but states he thinks something else preceded. Onset: Today, Sudden - Related Data Allergies Allergy/AdvReac Type Severity Reaction Status Date / Time bupropion Allergy Agitation Verified 12/07/18 16:55 Home Meds: Home Meds Omeprazole 20 mg PO DAILY 07/07/16 [History] Psyllium Husk [Metamucil] 1 dose PO DAILY PRN 09/04/16 [History] Acetaminophen [Tylenol] 650 mg PO Q4H PRN 09/07/16 [History] Chlorpheniramine Maleate 4 mg PO DAILY 12/31/17 [History] Past Medical History HEENT History: Reports: Epistaxis, Impaired Vision, Other (See Below) Other HEENT History: wears glasses Cardiovascular History: Reports: Other (See Below) Other Cardiovascular History: mitral valve regurgitation Respiratory History: Reports: None Gastrointestinal History: Reports: Chronic Constipation, GERD, Other (See Below) Other Gastrointestinal History: fatty liver with elevated lft's. HEPATIC STEATOSIS Genitourinary History: Reports: None, Renal Calculus Musculoskeletal History: Reports: Back Pain, Chronic Neurological History: Reports: None Psychiatric History: Reports: Anxiety, Panic Attack Endocrine/Metabolic History: Reports: None Hematologic History: Reports: None Immunologic History: Reports: None Oncologic (Cancer) History: Reports: None Dermatologic History: Reports: None - Infectious Disease History Infectious Disease History: Reports: Chicken Pox, Measles, Shingles - Past Surgical History Head Surgeries/Procedures: Reports: None HEENT Surgical History: Reports: None Respiratory Surgical History: Reports: None GI Surgical History: Reports: Appendectomy, EGD Male Surgical History: Reports: None, Circumcision Musculoskeletal Surgical History: Reports: Other (See Below) Other Musculoskeletal Surgeries/Procedures:: Fracture right arm Social & Family History - Family History Family Medical History: Noncontributory - Tobacco Use Years of Tobacco use: 5 Packs/Tins Daily: 0.5 - Caffeine Use Caffeine Use: Reports: Coffee, Energy Drinks, Soda, Tea Caffeine Use Comment: 16oz daily - Alcohol Use Days Per Week of Alcohol Use: 1 Number of Drinks Per Day: 1 Total Drinks Per Week: 1 - Recreational Drug Use Recreational Drug Use: No - Living Situation & Occupation Living situation: Reports: Occupation: Student ED ROS GENERAL - Review of Systems Review Of Systems: ROS reveals no pertinent complaints other than HPI. ED EXAM, GENERAL - Physical Exam Exam: See Below Exam Limited By: No Limitations General Appearance: Alert, WD/WN, Anxious, Mild Distress Eye Exam: Bilateral Eye: EOMI, Normal Inspection Ears: Normal External Exam, Hearing Grossly Normal Nose: Normal Inspection Throat/Mouth: Normal Inspection, Normal Voice, No Airway Compromise Head: Atraumatic, Normocephalic Neck: Normal Inspection, Supple, Non-Tender, Full Range of Motion Respiratory/Chest: No Respiratory Distress, Lungs Clear, Normal Breath Sounds, No Accessory Muscle Use, Chest Non-Tender Cardiovascular: Normal Peripheral Pulses, Regular Rate, Rhythm, No Edema, No Gallop, No JVD, No Murmur, No Rub Peripheral Pulses: 2+: Radial (L), Radial (R) GI/Abdominal: Normal Bowel Sounds, Soft, Non-Tender (Male) Exam: Deferred Rectal (Males) Exam: Deferred Back Exam: Normal Inspection, Full Range of Motion, NT Extremities: Normal Inspection, Normal Range of Motion, Non-Tender, Normal Capillary Refill, No Pedal Edema Neurological: Alert, Oriented, CN II-XII Intact, Normal Cognition, Normal Gait, Normal Reflexes, No Motor/Sensory Deficits Psychiatric: Anxious Skin Exam: Warm, Dry, Intact, Normal Color, No Rash Lymphatic: No Adenopathy EKG INTERPRETATION EKG Date: 12/07/18 Time: 17:16 Rhythm: NSR Rate (Beats/Min): 62 [place]: Normal P-Wave: Present QRS: Normal ST-T: Normal QT: Normal Comparison: No Change Course - Vital Signs Last Recorded V/S: Last Vital Signs Temp 98.2 F 12/07/18 16:50 Pulse 93 12/07/18 19:37 Resp 17 12/07/18 19:37 BP 133/80 12/07/18 19:37 Pulse Ox 98 12/07/18 19:37 - Orders/Labs/Meds Orders: Active Orders 24 hr Category Date Time Status EKG Documentation Completion [RC] STAT Care 12/07/18 17:13 Active Head wo Cont [CT] Stat Exams 12/07/18 18:22 Taken Labs: Laboratory Tests 12/07/18 12/07/18 Range/Units 17:27 17:27 WBC 8.4 (5.0-10.0) 10^3/uL RBC 5.45 (4.6-6.2) 10^6/uL Hgb 15.7 (14.0-18.0) g/dL Hct 44.8 (40.0-54.0) % MCV 82.2 (80-100) fL MCH 28.8 (27.0-34.0) pg MCHC 35.0 (33.0-35.0) g/dL Plt Count 226 (150-450) 10^3/uL Neut % (Auto) 45.8 (42.2-75.2) % Lymph % (Auto) 44.3 (20.5-50.1) % [place] % (Auto) 8.0 (2-8) % Eos % (Auto) 1.5 (1.0-3.0) % Baso % (Auto) 0.4 (0.0-1.0) % Sodium 137 (135-145) mmol/L Potassium 3.6 (3.6-5.0) mmol/L Chloride 103 (101-111) mmol/L Carbon Dioxide 22.0 (21.0-31.0) mmol/L Anion Gap 15.6 BUN 17 (7-18) mg/dL Creatinine 0.9 (0.6-1.3) mg/dL Est Cr Clr Drug Dosing 137.00 mL/min Estimated GFR (MDRD) > 60 BUN/Creatinine Ratio 18.88 Glucose 91 (74-105) mg/dL Calcium 9.4 (8.4-10.2) mg/dl Total Bilirubin 1.1 H (0.2-1.0) mg/dL AST 61 H (10-42) IU/L ALT 134 H (10-60) IU/L Alkaline Phosphatase 128 H (42-121) IU/L Troponin I < 0.02 (0.00-0.02) ng/ml Total Protein 7.4 (6.7-8.2) g/dl Albumin 4.5 (3.2-5.5) g/dl Globulin 2.9 Albumin/Globulin Ratio 1.55 - Radiology Interpretation Free Text/Narrative:: Head CT wo contrast: FINDINGS: Brain: Normal. No hemorrhage. No significant white matter disease. No edema. Ventricles: Normal. No ventriculomegaly. Bones/joints: Unremarkable. No acute fracture. Sinuses: Visualized sinuses are unremarkable. No acute sinusitis. Mastoid air cells: Visualized mastoid air cells are unremarkable. No mastoid effusion. Soft tissues: Unremarkable. IMPRESSION: No acute intracranial abnormality. See rad report Departure - Departure Disposition: Home, Self-Care 01 Clinical Impression: Anxiety - Discharge Information Instructions: Living With Anxiety Forms: ED Department Discharge Additional Instructions: rest light activity push fluids follow up if not improving or symptoms worsen tylenol 650mg every 4 hours as needed for discomfort/fever <Ivonne Kelley - Last Filed: 12/07/18 19:43> Departure - Departure Time of Disposition: 19:29 Condition: Good - Discharge Information *PRESCRIPTION DRUG MONITORING PROGRAM REVIEWED*: No *COPY OF PRESCRIPTION DRUG MONITORING REPORT IN PATIENT PATRICK: No
[2018-12-07 17:56] LABS: ANION GAP 15.6; CHLORIDE,CL 103 mmol/L (101-111); SODIUM,NA 137 mmol/L (135-145)
[2018-12-07 19:40] VITALS: BP 133/80
[2018-12-07] MEDS: Acetaminophen 325 MG Tab PO ONE (19:46)
== END 2018-12-07 19:50 | disposition home or self-care (01) ==
LOC: DL.ED 16:37
DX: F41.9 Anxiety disorder, unspecified (principal); Z88.8 Allergy status to other drugs, medicaments and biological substances; Z79.899 Other long term (current) drug therapy
CPT/HCPCS: 36415; 70450; 80053; 84484; 85025; 93005; 99284; A9270-GY

== ENCOUNTER 2019-02-20 08:53 | Emergency (ER) | payer BC ==
[2019-02-20] MEDS ORDERED: Sodium Chloride 0.9% 10 ML Syringe FLUSH PRN (09:01)
--- NOTE | 2019-02-20 09:01 | EDM.PDOC ---
ED HPI GENERAL MEDICAL PROBLEM - General Chief Complaint: Chest Pain Stated Complaint: CHEST PAIN, FATIGUE Time Seen by Provider: 02/20/19 08:59 Source of Information: Reports: Patient, Old Records, RN, RN Notes Reviewed History Limitations: Reports: No Limitations - History of Present Illness INITIAL COMMENTS - FREE TEXT/NARRATIVE: Patient presents to ER from home by POV with c/o waking up not feeling well, having palpitations has been seen by cardiology with no real answers. He reports burning epigastric and chest pain upon arrival to the ER. Yesterday had more palpations and nausea and jaw pain while driving, and much worse later after an argument with his /SO. He says this has been going on for a couple of years, but has got worse. He states that he knows he has anxiety and panic attacks, but feels that this time something else must really be wrong. Pt states he has also been seeing Dr. Sepulveda do to GI and fatty liver problems, but he doesn't know what he GI diagnosis is, or exactly what they are checking for. Duration: Chronic, Intermittent, Recurring Location: Reports: Chest Quality: Reports: Ache Severity: Moderate Improves with: Reports: None Worsens with: Reports: None Associated Symptoms: Reports: Cough Middle Chest Pain Score (Numeric/FACES): 4 - Related Data Allergies Allergy/AdvReac Type Severity Reaction Status Date / Time bupropion Allergy Agitation Verified 02/20/19 08:58 Home Meds: Home Meds Omeprazole 20 mg PO DAILY 07/07/16 [History] Psyllium Husk [Metamucil] 1 dose PO DAILY PRN 09/04/16 [History] Acetaminophen [Tylenol] 650 mg PO Q4H PRN 09/07/16 [History] Chlorpheniramine Maleate 4 mg PO ASDIRECTED PRN 12/31/17 [History] Past Medical History HEENT History: Reports: Epistaxis, Impaired Vision, Other (See Below) Other HEENT History: wears glasses Cardiovascular History: Reports: Other (See Below) Other Cardiovascular History: mitral valve regurgitation Respiratory History: Reports: None Gastrointestinal History: Reports: Chronic Constipation, GERD, Other (See Below) Other Gastrointestinal History: fatty liver with elevated lft's. HEPATIC STEATOSIS Genitourinary History: Reports: None, Renal Calculus Musculoskeletal History: Reports: Back Pain, Chronic Neurological History: Reports: None Psychiatric History: Reports: Anxiety, Panic Attack Endocrine/Metabolic History: Reports: None Hematologic History: Reports: None Immunologic History: Reports: None Oncologic (Cancer) History: Reports: None Dermatologic History: Reports: None - Infectious Disease History Infectious Disease History: Reports: Chicken Pox, Measles, Shingles - Past Surgical History Head Surgeries/Procedures: Reports: None HEENT Surgical History: Reports: None Respiratory Surgical History: Reports: None GI Surgical History: Reports: Appendectomy, EGD Male Surgical History: Reports: None, Circumcision Musculoskeletal Surgical History: Reports: Other (See Below) Other Musculoskeletal Surgeries/Procedures:: Fracture right arm Social & Family History - Family History Family Medical History: Noncontributory - Caffeine Use Caffeine Use: Reports: Coffee, Energy Drinks, Soda, Tea Caffeine Use Comment: 16oz daily - Recreational Drug Use Recreational Drug Use: Yes Recreational Drug Type: Reports: Marijuana/Hashish - Living Situation & Occupation Living situation: Reports: Occupation: Student ED ROS GENERAL - Review of Systems Review Of Systems: ROS reveals no pertinent complaints other than HPI. ED EXAM, GENERAL - Physical Exam Exam: See Below Exam Limited By: No Limitations General Appearance: Alert, WD/WN, No Apparent Distress, Anxious Eye Exam: Bilateral Eye: Normal Inspection (No scleral icterus.) Ears: Normal External Exam, Hearing Grossly Normal Nose: Normal Inspection, Normal Mucosa, No Blood Throat/Mouth: Normal Inspection, Normal Lips, Normal Teeth, Normal Gums, Normal Oropharynx, Normal Voice, No Airway Compromise Head: Atraumatic, Normocephalic Neck: Normal Inspection, Supple, Non-Tender, Full Range of Motion Respiratory/Chest: No Respiratory Distress, Lungs Clear, Normal Breath Sounds, No Accessory Muscle Use, Chest Non-Tender Cardiovascular: Normal Peripheral Pulses, Regular Rate, Rhythm, No Edema, No Gallop, No JVD, No Murmur, No Rub. No: Gallop/S3, Gallop/S4, Extra Beats GI/Abdominal: Normal Bowel Sounds, Soft, No Organomegaly, No Distention, No Abnormal Bruit, No Mass, Tender (mild epigastric "discomfort" to palpation). No : Guarding, Rigid, Rebound (Male) Exam: Deferred Rectal (Males) Exam: Deferred Back Exam: Normal Inspection Extremities: Normal Inspection Neurological: Alert, Oriented, CN II-XII Intact, Normal Cognition, Normal Gait, No Motor/Sensory Deficits Psychiatric: Anxious, Flat Affect Skin Exam: Warm, Dry, Intact, Normal Color, No Rash EKG INTERPRETATION EKG Date: 02/20/19 Time: 08:55 Rhythm: Other (Sinus kay) Rate (Beats/Min): 58 [place]: Normal P-Wave: Present QRS: Wide (borderline IVCD) ST-T: Normal QT: Normal Comparison: No Change Course - Vital Signs Last Recorded V/S: Last Vital Signs Temp 36.6 C 02/20/19 08:58 Pulse 58 L 02/20/19 09:47 Resp 18 02/20/19 09:47 BP 144/84 H 02/20/19 09:47 Pulse Ox 98 02/20/19 09:47 - Orders/Labs/Meds Orders: Active Orders 24 hr Category Date Time Status EKG 12 Lead [EKG Documentation Completion] [RC] STAT Care 02/20/19 09:01 Active Peripheral IV Care [RC] . DIRECTED Care 02/20/19 09:02 Active Chest 1V Frontal [CR] Stat Exams 02/20/19 09:01 Taken Sodium Chloride 0.9% [Saline Flush] Med 02/20/19 09:01 Active 10 ml FLUSH ASDIRECTED PRN Peripheral IV Insertion Adult [OM.PC] Stat Oth 02/20/19 09:01 Ordered Medication Orders Sodium Chloride (Saline Flush) 10 ml FLUSH ASDIRECTED PRN PRN Reason: Keep Vein Open Last Admin: 02/20/19 09:16 Dose: 10 ml Labs: Laboratory Tests 02/20/19 02/20/19 02/20/19 Range/Units 09:10 09:10 09:10 WBC 8.4 (5.0-10.0) 10^3/uL RBC 5.73 (4.6-6.2) 10^6/uL Hgb 16.8 (14.0-18.0) g/dL Hct 47.2 (40.0-54.0) % MCV 82.4 (80-100) fL MCH 29.3 (27.0-34.0) pg MCHC 35.6 H (33.0-35.0) g/dL Plt Count 230 (150-450) 10^3/uL Neut % (Auto) 55.6 (42.2-75.2) % Lymph % (Auto) 36.3 (20.5-50.1) % [place] % (Auto) 6.5 (2-8) % Eos % (Auto) 1.1 (1.0-3.0) % Baso % (Auto) 0.5 (0.0-1.0) % D-Dimer, Quantitative 108 (0-400) ng/mL Sodium 138 (135-145) mmol/L Potassium 3.6 (3.6-5.0) mmol/L Chloride 105 (101-111) mmol/L Carbon Dioxide 20.0 L (21.0-31.0) mmol/L Anion Gap 16.6 BUN 13 (7-18) mg/dL Creatinine 0.9 (0.6-1.3) mg/dL Est Cr Clr Drug Dosing 137.00 mL/min Estimated GFR (MDRD) > 60 BUN/Creatinine Ratio 14.44 Glucose 113 H (74-105) mg/dL Calcium 9.4 (8.4-10.2) mg/dl Total Bilirubin 1.1 H (0.2-1.0) mg/dL AST 62 H (10-42) IU/L ALT 107 H (10-60) IU/L Alkaline Phosphatase 141 H (42-121) IU/L Troponin I < 0.02 (0.00-0.02) ng/ml Total Protein 7.3 (6.7-8.2) g/dl Albumin 4.5 (3.2-5.5) g/dl Globulin 2.8 Albumin/Globulin Ratio 1.61 Lipase 32 (22-51) U/L TSH, Ultra Sensitive (0.45-5.33) uIu/mL Urine Color (YELLOW) Urine Appearance (CLEAR) Urine pH (5.0-9.0) Ur Specific [place] (1.005-1.030) Urine Protein (NEGATIVE) Urine Glucose (UA) (NEGATIVE) Urine Ketones (NEGATIVE) Urine Occult Blood (NEGATIVE) Urine Nitrite (NEGATIVE) Urine Bilirubin (NEGATIVE) Urine Urobilinogen (0.2-1.0) mg/dL Ur Leukocyte Esterase (NEGATIVE) Urine RBC /HPF Urine WBC (0-5/HPF) /HPF Ur Epithelial Cells /HPF Amorphous Sediment (0/HPF) /HPF Urine Bacteria (0-FEW/HPF) /HPF Urine Mucus /LPF Urine Opiates Screen (NEGATIVE) Ur Oxycodone Screen (NEGATIVE) Urine Methadone Screen (NEGATIVE) Ur Barbiturates Screen (NEGATIVE) U Tricyclic Antidepress (NEGATIVE) Ur Phencyclidine Scrn (NEGATIVE) Ur Amphetamine Screen (NEGATIVE) U Methamphetamines Scrn (NEGATIVE) Urine MDMA Screen (NEGATIVE) U Benzodiazepines Scrn (NEGATIVE) Urine Cocaine Screen (NEGATIVE) U Marijuana (THC) Screen (NEGATIVE) Ethyl Alcohol < 5 mg/dL 02/20/19 02/20/19 02/20/19 Range/Units 09:10 09:43 09:43 WBC (5.0-10.0) 10^3/uL RBC (4.6-6.2) 10^6/uL Hgb (14.0-18.0) g/dL Hct (40.0-54.0) % MCV (80-100) fL MCH (27.0-34.0) pg MCHC (33.0-35.0) g/dL Plt Count (150-450) 10^3/uL Neut % (Auto) (42.2-75.2) % Lymph % (Auto) (20.5-50.1) % [place] % (Auto) (2-8) % Eos % (Auto) (1.0-3.0) % Baso % (Auto) (0.0-1.0) % D-Dimer, Quantitative (0-400) ng/mL Sodium (135-145) mmol/L Potassium (3.6-5.0) mmol/L Chloride (101-111) mmol/L Carbon Dioxide (21.0-31.0) mmol/L Anion Gap BUN (7-18) mg/dL Creatinine (0.6-1.3) mg/dL Est Cr Clr Drug Dosing mL/min Estimated GFR (MDRD) BUN/Creatinine Ratio Glucose (74-105) mg/dL Calcium (8.4-10.2) mg/dl Total Bilirubin (0.2-1.0) mg/dL AST (10-42) IU/L ALT (10-60) IU/L Alkaline Phosphatase (42-121) IU/L Troponin I (0.00-0.02) ng/ml Total Protein (6.7-8.2) g/dl Albumin (3.2-5.5) g/dl Globulin Albumin/Globulin Ratio Lipase (22-51) U/L TSH, Ultra Sensitive 0.93 (0.45-5.33) uIu/mL Urine Color Yellow (YELLOW) Urine Appearance Cloudy (CLEAR) Urine pH 8.5 (5.0-9.0) Ur Specific [place] 1.020 (1.005-1.030) Urine Protein Trace H (NEGATIVE) Urine Glucose (UA) Negative (NEGATIVE) Urine Ketones Negative (NEGATIVE) Urine Occult Blood Negative (NEGATIVE) Urine Nitrite Negative (NEGATIVE) Urine Bilirubin Negative (NEGATIVE) Urine Urobilinogen 0.2 (0.2-1.0) mg/dL Ur Leukocyte Esterase Negative (NEGATIVE) Urine RBC Not seen /HPF Urine WBC Not seen (0-5/HPF) /HPF Ur Epithelial Cells Rare /HPF Amorphous Sediment Many (0/HPF) /HPF Urine Bacteria Not seen (0-FEW/HPF) /HPF Urine Mucus Rare /LPF Urine Opiates Screen Negative (NEGATIVE) Ur Oxycodone Screen Negative (NEGATIVE) Urine Methadone Screen Negative (NEGATIVE) Ur Barbiturates Screen Negative (NEGATIVE) U Tricyclic Antidepress Negative (NEGATIVE) Ur Phencyclidine Scrn Negative (NEGATIVE) Ur Amphetamine Screen Negative (NEGATIVE) U Methamphetamines Scrn Negative (NEGATIVE) Urine MDMA Screen Negative (NEGATIVE) U Benzodiazepines Scrn Negative (NEGATIVE) Urine Cocaine Screen Negative (NEGATIVE) U Marijuana (THC) Screen Negative (NEGATIVE) Ethyl Alcohol mg/dL Meds: Medications Generic Name Dose Route Start Last Admin Trade Name Freq PRN Reason Stop Dose Admin Sodium Chloride 10 ml 02/20/19 09:01 02/20/19 09:16 Saline Flush FLUSH 10 ml ASDIRECTED PRN Administration Keep Vein Open Discontinued Medications Generic Name Dose Route Start Last Admin Trade Name Freq PRN Reason Stop Dose Admin Aspirin 324 mg 02/20/19 09:12 02/20/19 09:18 Aspirin PO 02/20/19 09:13 324 mg ONETIME ONE Administration - Radiology Interpretation Free Text/Narrative:: XR Chest: no acute process per Rad. report. Departure - Departure Time of Disposition: 10:25 Disposition: Home, Self-Care 01 Condition: Good Clinical Impression: Palpitations Instructions: Palpitations, Nonspecific Chest Pain, [id number] Forms: ED Department Discharge Additional Instructions: Follow up in clinic with Dr. Parr and discuss the possibility of a seven day cardiac event monitor. - My Orders Last 24 Hours: My Active Orders 02/20/19 09:01 EKG 12 Lead [EKG Documentation Completion] [RC] STAT Chest 1V Frontal [CR] Stat Sodium Chloride 0.9% [Saline Flush] 10 ml FLUSH ASDIRECTED PRN Peripheral IV Insertion Adult [OM.PC] Stat 02/20/19 09:02 Peripheral IV Care [RC] . DIRECTED - Assessment/Plan Last 24 Hours: My Active Orders 02/20/19 09:01 EKG 12 Lead [EKG Documentation Completion] [RC] STAT Chest 1V Frontal [CR] Stat Sodium Chloride 0.9% [Saline Flush] 10 ml FLUSH ASDIRECTED PRN Peripheral IV Insertion Adult [OM.PC] Stat 02/20/19 09:02 Peripheral IV Care [RC] . DIRECTED
[2019-02-20] MEDS ORDERED: Aspirin 81 MG Tab.Chew PO ONE (09:12)
[2019-02-20 09:37] LABS: ANION GAP 16.6; CHLORIDE,CL 105 mmol/L (101-111); SODIUM,NA 138 mmol/L (135-145)
[2019-02-20 09:48] VITALS: BP 144/84
--- NOTE | 2019-02-20 10:38 | CR ---
Clinical history: 33-year-old male resident chest pain. Interpretation: Upright AP portable chest film negative. (External rn cardiac rehab leads). Normal cardiac silhouette and no alveolar edema or dependent effusion. Faustino thorax unremarkable. Left-sided aortic arch. No lung mass, hilar lymphadenopathy or focal lobar pneumonia. No atelectasis/collapse. No pneumothorax.
== END 2019-02-20 10:33 | disposition home or self-care (01) ==
LOC: DL.ED 08:53
DX: R00.2 Palpitations (principal); K21.9 Gastro-esophageal reflux disease without esophagitis; F41.9 Anxiety disorder, unspecified; Z79.899 Other long term (current) drug therapy; Z88.8 Allergy status to other drugs, medicaments and biological substances
CPT/HCPCS: 36415; 71045; 80053; 80305; 81001; 83690; 84443; 84484; 85025; 85379; 93005; 99285; A9270; G0480

== ENCOUNTER 2019-06-10 05:29 | Emergency (ER) | payer BC ==
[2019-06-10] MEDS ORDERED: LORazepam 1 MG Tab PO ONE (05:30)
[2019-06-10] MEDS ORDERED: LORazepam 1 MG Tab ONE (06:26)
--- NOTE | 2019-06-10 06:28 | EDM.PDOC ---
ED HPI GENERAL MEDICAL PROBLEM - General Chief Complaint: General Stated Complaint: DOESNT FEEL GOOD Time Seen by Provider: 06/10/19 06:23 Source of Information: Reports: Patient, Old Records History Limitations: Reports: No Limitations - History of Present Illness INITIAL COMMENTS - FREE TEXT/NARRATIVE: gives h/o anxiety Sx has been w/u by both Dr Merrill & Dr Sepulveda and has referral for GI. denies chronic alcohol usage states his parents were. has hydroxyzine but wasn't helping today. tried sleeping tonight but unable. admits to occasional energy drinks. pt's past ER records were discussed. states has been under lot of stress from finances and work and family life. - Related Data Allergies Allergy/AdvReac Type Severity Reaction Status Date / Time bupropion Allergy Agitation Verified 06/10/19 05:34 Home Meds: Home Meds Omeprazole 20 mg PO DAILY 07/07/16 [History] Psyllium Husk [Metamucil] 1 dose PO DAILY PRN 09/04/16 [History] Acetaminophen [Tylenol] 650 mg PO Q4H PRN 09/07/16 [History] hydrOXYzine HCl [hydrOXYzine] 25 mg PO TID PRN 06/10/19 [History] Past Medical History HEENT History: Reports: Epistaxis, Impaired Vision, Other (See Below) Other HEENT History: wears glasses Cardiovascular History: Reports: Other (See Below) Other Cardiovascular History: mitral valve regurgitation Respiratory History: Reports: None Gastrointestinal History: Reports: Chronic Constipation, GERD, Other (See Below) Other Gastrointestinal History: fatty liver with elevated lft's. HEPATIC STEATOSIS Genitourinary History: Reports: None, Renal Calculus Musculoskeletal History: Reports: Back Pain, Chronic Neurological History: Reports: None Psychiatric History: Reports: Anxiety, Depression, Panic Attack Endocrine/Metabolic History: Reports: None Hematologic History: Reports: None Immunologic History: Reports: None Oncologic (Cancer) History: Reports: None Dermatologic History: Reports: None - Infectious Disease History Infectious Disease History: Reports: Chicken Pox, Measles, Shingles - Past Surgical History Head Surgeries/Procedures: Reports: None HEENT Surgical History: Reports: None Respiratory Surgical History: Reports: None GI Surgical History: Reports: Appendectomy, EGD Male Surgical History: Reports: None, Circumcision Musculoskeletal Surgical History: Reports: Other (See Below) Other Musculoskeletal Surgeries/Procedures:: Fracture right arm Social & Family History - Family History Family Medical History: Noncontributory - Tobacco Use Used Tobacco, but Quit: No - Caffeine Use Caffeine Use: Reports: Coffee, Energy Drinks, Soda Caffeine Use Comment: 16oz daily - Alcohol Use Days Per Week of Alcohol Use: 2 Number of Drinks Per Day: 6 Total Drinks Per Week: 12 - Recreational Drug Use Recreational Drug Use: No - Living Situation & Occupation Living situation: Reports: Occupation: Student ED ROS GENERAL - Review of Systems Review Of Systems: ROS reveals no pertinent complaints other than HPI. ED EXAM, GENERAL - Physical Exam Exam: See Below Exam Limited By: No Limitations General Appearance: Alert, WD/WN, Anxious, Mild Distress, Other (distraught) Eye Exam: Bilateral Eye: PERRL (pupils ER @ 4mm) Ears: Hearing Grossly Normal Throat/Mouth: Normal Voice, No Airway Compromise Head: Atraumatic Neck: Non-Tender, Full Range of Motion Respiratory/Chest: No Respiratory Distress Cardiovascular: Regular Rate, Rhythm GI/Abdominal: Soft, Non-Tender Neurological: Alert, Oriented, Normal Cognition, Normal Gait, No Motor/Sensory Deficits Psychiatric: Anxious, Flat Affect Skin Exam: Warm, Dry, Normal Color Lymphatic: No Adenopathy Course - Vital Signs Last Recorded V/S: Last Vital Signs Temp 36.4 C 06/10/19 05:36 Pulse 66 06/10/19 05:36 Resp 20 06/10/19 05:36 BP 154/100 H 06/10/19 05:36 Pulse Ox 100 06/10/19 05:36 Departure - Departure Time of Disposition: 06:28 Disposition: Home, Self-Care 01 Condition: Good Clinical Impression: Reaction, situational, acute, to stress - Discharge Information Additional Instructions: 1) rest and sleep as much as possible 2) call for GI referral Wednesday 3) recheck if there is any change or concern rx togo; ativan 1mg hs prn x 2
[2019-06-10 06:43] VITALS: BP 131/81
== END 2019-06-10 06:35 | disposition home or self-care (01) ==
LOC: DL.ED 05:29
DX: F43.0 Acute stress reaction (principal); K21.9 Gastro-esophageal reflux disease without esophagitis; Z90.49 Acquired absence of other specified parts of digestive tract; Z79.899 Other long term (current) drug therapy; Z88.8 Allergy status to other drugs, medicaments and biological substances
CPT/HCPCS: 99283; A9270-GY

== ENCOUNTER 2019-09-28 07:19 | Emergency (ER) | payer BC ==
[2019-09-28 07:30] VITALS: BP 136/88; PULSE 88
--- NOTE | 2019-09-28 08:00 | EDM.PDOC ---
ED HPI GENERAL MEDICAL PROBLEM - General Chief Complaint: Cardiovascular Problem Stated Complaint: PALPUTATIONS Time Seen by Provider: 09/28/19 07:45 Source of Information: Reports: Patient History Limitations: Reports: No Limitations - History of Present Illness INITIAL COMMENTS - FREE TEXT/NARRATIVE: This 33 yo male patient reports to the ED due to heart palpitations. The patient reports he has been having intermittent palpitations since yesterday afternoon. The patient reports his last episode of palpitations was in the hospital parking lot. The patient reports he has been seen in the [facility] for intermittent chest pain (Dr. Sepulveda advised the patient his pain was from the esophagus and started him on Nexium yesterday). The patient reports he has had a history of intermittent palpitations and has an appointment with cardiology on 10/06/19 (with Dr. Merrill at [facility] in [place]). The patient denies any current chest pain or sensation of heart palpitations. Onset Date: 09/27/19 Duration: Intermittent, Resolved Prior to Arrival Location: Reports: Chest Quality: Reports: Dull Severity: Mild Improves with: Reports: None Worsens with: Reports: None Context: Reports: Other Associated Symptoms: Reports: Nausea/Vomiting - Related Data Allergies Allergy/AdvReac Type Severity Reaction Status Date / Time bupropion Allergy Agitation Verified 09/28/19 07:30 Home Meds: Home Meds Psyllium Husk [Metamucil] 1 dose PO DAILY PRN 09/04/16 [History] Acetaminophen [Tylenol] 650 mg PO Q4H PRN 09/07/16 [History] Esomeprazole Magnesium [Nexium] 40 mg PO DAILY 09/28/19 [History] Past Medical History HEENT History: Reports: Epistaxis, Impaired Vision, Other (See Below) Other HEENT History: wears glasses Cardiovascular History: Reports: Other (See Below) Other Cardiovascular History: mitral valve regurgitation Respiratory History: Reports: None Gastrointestinal History: Reports: Chronic Constipation, GERD, Other (See Below) Other Gastrointestinal History: fatty liver with elevated lft's. HEPATIC STEATOSIS Genitourinary History: Reports: None, Renal Calculus Musculoskeletal History: Reports: Back Pain, Chronic Neurological History: Reports: None Psychiatric History: Reports: Anxiety, Depression, Panic Attack Endocrine/Metabolic History: Reports: None Hematologic History: Reports: None Immunologic History: Reports: None Oncologic (Cancer) History: Reports: None Dermatologic History: Reports: None - Infectious Disease History Infectious Disease History: Reports: Chicken Pox, Measles, Shingles - Past Surgical History Head Surgeries/Procedures: Reports: None HEENT Surgical History: Reports: None Respiratory Surgical History: Reports: None GI Surgical History: Reports: Appendectomy, EGD Male Surgical History: Reports: None, Circumcision Musculoskeletal Surgical History: Reports: Other (See Below) Other Musculoskeletal Surgeries/Procedures:: Fracture right arm Social & Family History - Family History Family Medical History: Noncontributory - Tobacco Use Smoking Status *Q: Never Smoker Second Hand Smoke Exposure: No - Caffeine Use Caffeine Use: Reports: Coffee, Soda Caffeine Use Comment: 16oz daily - Recreational Drug Use Recreational Drug Use: No - Living Situation & Occupation Living situation: Reports: Occupation: Student ED ROS GENERAL - Review of Systems Review Of Systems: Comprehensive ROS is negative, except as noted in HPI. ED EXAM, GENERAL - Physical Exam Exam: See Below Exam Limited By: No Limitations General Appearance: Alert, WD/WN, Mild Distress Eye Exam: Bilateral Eye: EOMI, Normal Inspection, PERRL Ears: Normal External Exam, Normal Canal, Hearing Grossly Normal, Normal TMs Nose: Normal Inspection, Normal Mucosa, No Blood Throat/Mouth: Normal Inspection, Normal Lips, Normal Teeth, Normal Gums, Normal Oropharynx, Normal Voice, No Airway Compromise Head: Atraumatic, Normocephalic Neck: Normal Inspection, Supple, Non-Tender, Full Range of Motion Respiratory/Chest: No Respiratory Distress, Lungs Clear, Normal Breath Sounds, No Accessory Muscle Use, Chest Non-Tender Cardiovascular: Normal Peripheral Pulses, Regular Rate, Rhythm, No Edema, No Gallop, No JVD, No Murmur, No Rub GI/Abdominal: Normal Bowel Sounds, Soft, Non-Tender, No Organomegaly, No Distention, No Abnormal Bruit, No Mass (Male) Exam: Deferred Rectal (Males) Exam: Deferred Back Exam: Normal Inspection, Full Range of Motion, NT Extremities: Normal Inspection, Normal Range of Motion, Non-Tender, Normal Capillary Refill, No Pedal Edema Neurological: Alert, Oriented, CN II-XII Intact, Normal Cognition, Normal Gait, Normal Reflexes, No Motor/Sensory Deficits Psychiatric: Normal Affect, Normal Mood Skin Exam: Warm, Dry, Intact, Normal Color, No Rash Lymphatic: No Adenopathy Course - Vital Signs Last Recorded V/S: Last Vital Signs Temp 36.4 C 09/28/19 07:25 Pulse 88 09/28/19 07:25 Resp 16 09/28/19 07:25 BP 136/88 09/28/19 07:25 Pulse Ox 99 09/28/19 07:25 - Orders/Labs/Meds Orders: Active Orders 24 hr Category Date Time Status EKG Documentation Completion [RC] URGENT Care 09/28/19 07:24 Active DRUG SCREEN URINE BIORAD [URCHEM] Stat Lab 09/28/19 07:24 Ordered UA RFX JOSE AND CULT IF INDIC [URIN] Urgent Lab 09/28/19 07:24 Ordered Labs: Laboratory Tests 09/28/19 09/28/19 Range/Units 07:41 07:41 WBC 7.5 (5.0-10.0) 10^3/uL RBC 5.38 (4.6-6.2) 10^6/uL Hgb 15.8 (14.0-18.0) g/dL Hct 44.2 (40.0-54.0) % MCV 82.2 (80-100) fL MCH 29.4 (27.0-34.0) pg MCHC 35.7 H (33.0-35.0) g/dL Plt Count 229 (150-450) 10^3/uL Neut % (Auto) 48.5 (42.2-75.2) % Lymph % (Auto) 41.0 (20.5-50.1) % [place] % (Auto) 7.1 (2-8) % Eos % (Auto) 2.9 (1.0-3.0) % Baso % (Auto) 0.5 (0.0-1.0) % Sodium 140 (135-145) mmol/L Potassium 4.0 (3.6-5.0) mmol/L Chloride 108 (101-111) mmol/L Carbon Dioxide 23.0 (21.0-31.0) mmol/L Anion Gap 13.0 BUN 18 (7-18) mg/dL Creatinine 0.9 (0.6-1.3) mg/dL Est Cr Clr Drug Dosing 137.00 mL/min Estimated GFR (MDRD) > 60 BUN/Creatinine Ratio 20.00 Glucose 94 (74-105) mg/dL Calcium 9.2 (8.4-10.2) mg/dl Total Bilirubin 0.8 (0.2-1.0) mg/dL AST 40 (10-42) IU/L ALT 97 H (10-60) IU/L Alkaline Phosphatase 134 H (42-121) IU/L Troponin I < 0.02 (0.00-0.02) ng/ml Total Protein 7.7 (6.7-8.2) g/dl Albumin 4.6 (3.2-5.5) g/dl Globulin 3.1 Albumin/Globulin Ratio 1.48 - Re-Assessments/Exams Free Text/Narrative Re-Assessment/Exam: 09/28/19 08:39 The patient was advised of the examination, lab, EKG and x-ray results. The patient reports he has been dealing with similar symptoms over the past 2 years. The patient will keep his cardiology appointment on 10/06/[address] Merrill. Departure - Departure Time of Disposition: 08:40 Disposition: Home, Self-Care 01 Condition: Fair Clinical Impression: Intermittent palpitations Instructions: Palpitations, [id number] Forms: ED Department Discharge Care Plan Goals: The patient was advised of the examination, lab, EKG and x-ray results. The patient was encouraged to continue to take his medications as previously prescribed. The patient will keep his cardiology appointment on 10/06/[address] Merrill. If the patient has any additional symptoms or concerns, the patient should either return to the emergency department or visit his primary care facility. Sepsis Event Note - Evaluation Sepsis Screening Result: No Definite Risk - Focused Exam Vital Signs: Vital Signs Temp Pulse Resp BP Pulse Ox 09/28/19 07:25 36.4 C 88 16 136/88 99 Date Exam was Performed: 09/28/19 Time Exam was Performed: 08:39 - My Orders Last 24 Hours: My Active Orders 09/28/19 07:24 EKG Documentation Completion [RC] URGENT DRUG SCREEN URINE BIORAD [URCHEM] Stat UA RFX JOSE AND CULT IF INDIC [URIN] Urgent - Assessment/Plan Last 24 Hours: My Active Orders 09/28/19 07:24 EKG Documentation Completion [RC] URGENT DRUG SCREEN URINE BIORAD [URCHEM] Stat UA RFX JOSE AND CULT IF INDIC [URIN] Urgent
[2019-09-28 08:13] LABS: CHLORIDE,CL 108 mmol/L (101-111); SODIUM,NA 140 mmol/L (135-145)
== END 2019-09-28 08:48 | disposition home or self-care (01) ==
LOC: DL.ED 07:19
DX: R00.2 Palpitations (principal); K21.9 Gastro-esophageal reflux disease without esophagitis; Z88.8 Allergy status to other drugs, medicaments and biological substances; Z79.899 Other long term (current) drug therapy
CPT/HCPCS: 36415; 71045; 80053; 84484; 85025; 93005; 99285-25

== ENCOUNTER 2019-11-07 09:19 | Emergency (ER) | payer BC ==
[2019-11-07 09:27] VITALS: BP 150/95; PULSE 83
--- NOTE | 2019-11-07 09:52 | EDM.PDOC ---
ED HPI GENERAL MEDICAL PROBLEM - General Chief Complaint: Abdominal Pain Stated Complaint: SEVERE ABDOMINAL/BACK/CHEST PAIN Time Seen by Provider: 11/07/19 09:35 Source of Information: Reports: Patient History Limitations: Reports: No Limitations - History of Present Illness INITIAL COMMENTS - FREE TEXT/NARRATIVE: This 34 yo male patient reports to the ED with upper abdominal pain radiating into his lower ribs and center of his chest. The patient reports he took his Nexium this morning, stopped at [employer] (got a coffee and a sausage sandwich ) and started to have abdominal pain about 1 hour later. The patient reports he has an appointment with Dr. Sepulveda at 1015, but could not put up with his pain that long. The patient has not taken anything to improve his symptoms. At this time, the patient reports his pain is a 5/10. Onset: Today Duration: Improving Location: Reports: Chest (radiating to chest), Abdomen (upper abdomen) Quality: Reports: Ache, Sharp Severity: Severe Associated Symptoms: Reports: Nausea/Vomiting (Nausea no vomiting) Abdominal Pain Score (Numeric/FACES): 7 - Related Data Allergies Allergy/AdvReac Type Severity Reaction Status Date / Time bupropion Allergy Agitation Verified 11/07/19 09:24 Home Meds: Home Meds Psyllium Husk [Metamucil] 1 dose PO DAILY PRN 09/04/16 [History] Acetaminophen [Tylenol] 650 mg PO Q4H PRN 09/07/16 [History] Esomeprazole Magnesium [Nexium] 40 mg PO DAILY 09/28/19 [History] Past Medical History HEENT History: Reports: Epistaxis, Impaired Vision, Other (See Below) Other HEENT History: wears glasses Cardiovascular History: Reports: Other (See Below) Other Cardiovascular History: mitral valve regurgitation Respiratory History: Reports: None Gastrointestinal History: Reports: Chronic Constipation, GERD, Other (See Below) Other Gastrointestinal History: fatty liver with elevated lft's. HEPATIC STEATOSIS Genitourinary History: Reports: Renal Calculus Musculoskeletal History: Reports: Back Pain, Chronic Neurological History: Reports: None Psychiatric History: Reports: Anxiety, Depression, Panic Attack Endocrine/Metabolic History: Reports: None Hematologic History: Reports: None Immunologic History: Reports: None Oncologic (Cancer) History: Reports: None Dermatologic History: Reports: None - Infectious Disease History Infectious Disease History: Reports: Chicken Pox, Measles, Shingles - Past Surgical History Head Surgeries/Procedures: Reports: None HEENT Surgical History: Reports: None Respiratory Surgical History: Reports: None GI Surgical History: Reports: Appendectomy, EGD Male Surgical History: Reports: None, Circumcision Musculoskeletal Surgical History: Reports: Other (See Below) Other Musculoskeletal Surgeries/Procedures:: Fracture right arm Social & Family History - Family History Family Medical History: Noncontributory - Tobacco Use Smoking Status *Q: Never Smoker - Caffeine Use Caffeine Use: Reports: Coffee Caffeine Use Comment: 16oz daily - Recreational Drug Use Recreational Drug Use: No - Living Situation & Occupation Living situation: Reports: Occupation: Student ED ROS GENERAL - Review of Systems Review Of Systems: Comprehensive ROS is negative, except as noted in HPI. ED EXAM, GI/ABD - Physical Exam Exam: See Below Exam Limited By: No Limitations General Appearance: Alert, WD/WN, Moderate Distress Eyes: Bilateral: Normal Appearance, EOMI Ears: Normal External Exam, Normal Canal, Hearing Grossly Normal, Normal TMs Nose: Normal Inspection, Normal Mucosa, No Blood Throat/Mouth: Normal Inspection, Normal Lips, Normal Teeth, Normal Gums, Normal Oropharynx, Normal Voice, No Airway Compromise Head: Atraumatic, Normocephalic Neck: Normal Inspection, Supple, Non-Tender, Full Range of Motion Respiratory/Chest: No Respiratory Distress, Lungs Clear, Normal Breath Sounds, No Accessory Muscle Use, Chest Non-Tender Cardiovascular: Normal Peripheral Pulses, Regular Rate, Rhythm, No Edema, No Gallop, No JVD, No Murmur, No Rub GI/Abdominal Exam: Tender (upper abdominal pain with palpation) (Male) Exam: Deferred Rectal (Males) Exam: Deferred Back Exam: Normal Inspection, Full Range of Motion, NT Extremities: Normal Inspection, Normal Range of Motion, Non-Tender, Normal Capillary Refill, No Pedal Edema Neurological: Alert, Oriented, CN II-XII Intact, Normal Cognition, Normal Gait, Normal Reflexes, No Motor/Sensory Deficits Psychiatric: Normal Affect, Normal Mood Skin Exam: Warm, Dry, Intact, Normal Color, No Rash Lymphatic: No Adenopathy Course - Vital Signs Last Recorded V/S: Last Vital Signs Temp 36.4 C 11/07/19 09:24 Pulse 83 11/07/19 09:24 Resp 18 11/07/19 09:24 BP 150/95 H 11/07/19 09:24 Pulse Ox 100 11/07/19 09:24 - Orders/Labs/Meds Orders: Active Orders 24 hr Category Date Time Status EKG Documentation Completion [RC] URGENT Care 11/07/19 09:29 Ordered Labs: Laboratory Tests 11/07/19 11/07/19 11/07/19 Range/Units 09:32 09:32 09:32 WBC 7.2 (5.0-10.0) 10^3/uL RBC 5.75 (4.6-6.2) 10^6/uL Hgb 16.8 (14.0-18.0) g/dL Hct 46.8 (40.0-54.0) % MCV 81.4 (80-100) fL MCH 29.2 (27.0-34.0) pg MCHC 35.9 H (33.0-35.0) g/dL Plt Count 256 (150-450) 10^3/uL Neut % (Auto) 55.4 (42.2-75.2) % Lymph % (Auto) 35.1 (20.5-50.1) % [place] % (Auto) 6.3 (2-8) % Eos % (Auto) 2.8 (1.0-3.0) % Baso % (Auto) 0.4 (0.0-1.0) % D-Dimer, Quantitative 107 (0-400) ng/mL Sodium (135-145) mmol/L Potassium (3.6-5.0) mmol/L Chloride (101-111) mmol/L Carbon Dioxide (21.0-31.0) mmol/L Anion Gap BUN (7-18) mg/dL Creatinine (0.6-1.3) mg/dL Est Cr Clr Drug Dosing mL/min Estimated GFR (MDRD) BUN/Creatinine Ratio Glucose (74-105) mg/dL Calcium (8.4-10.2) mg/dl Total Bilirubin (0.2-1.0) mg/dL AST (10-42) IU/L ALT (10-60) IU/L Alkaline Phosphatase (42-121) IU/L Troponin I (0.00-0.02) ng/ml Total Protein (6.7-8.2) g/dl Albumin (3.2-5.5) g/dl Globulin Albumin/Globulin Ratio Amylase 33 (28-100) U/L Lipase 34 (22-51) U/L Urine Color (YELLOW) Urine Appearance (CLEAR) Urine pH (5.0-9.0) Ur Specific [place] (1.005-1.030) Urine Protein (NEGATIVE) Urine Glucose (UA) (NEGATIVE) Urine Ketones (NEGATIVE) Urine Occult Blood (NEGATIVE) Urine Nitrite (NEGATIVE) Urine Bilirubin (NEGATIVE) Urine Urobilinogen (0.2-1.0) mg/dL Ur Leukocyte Esterase (NEGATIVE) Urine RBC /HPF Urine WBC (0-5/HPF) /HPF Ur Epithelial Cells (NOT SEEN) /HPF Amorphous Sediment (NOT SEEN) /HPF Urine Bacteria (0-FEW/HPF) /HPF Urine Mucus (NOT SEEN) /LPF Urine Opiates Screen (NEGATIVE) Ur Oxycodone Screen (NEGATIVE) Urine Methadone Screen (NEGATIVE) Ur Barbiturates Screen (NEGATIVE) U Tricyclic Antidepress (NEGATIVE) Ur Phencyclidine Scrn (NEGATIVE) Ur Amphetamine Screen (NEGATIVE) U Methamphetamines Scrn (NEGATIVE) Urine MDMA Screen (NEGATIVE) U Benzodiazepines Scrn (NEGATIVE) Urine Cocaine Screen (NEGATIVE) U Marijuana (THC) Screen (NEGATIVE) 11/07/19 11/07/19 11/07/19 Range/Units 09:32 09:37 09:37 WBC (5.0-10.0) 10^3/uL RBC (4.6-6.2) 10^6/uL Hgb (14.0-18.0) g/dL Hct (40.0-54.0) % MCV (80-100) fL MCH (27.0-34.0) pg MCHC (33.0-35.0) g/dL Plt Count (150-450) 10^3/uL Neut % (Auto) (42.2-75.2) % Lymph % (Auto) (20.5-50.1) % [place] % (Auto) (2-8) % Eos % (Auto) (1.0-3.0) % Baso % (Auto) (0.0-1.0) % D-Dimer, Quantitative (0-400) ng/mL Sodium 139 (135-145) mmol/L Potassium 3.6 (3.6-5.0) mmol/L Chloride 104 (101-111) mmol/L Carbon Dioxide 25.0 (21.0-31.0) mmol/L Anion Gap 13.6 BUN 14 (7-18) mg/dL Creatinine 1.0 (0.6-1.3) mg/dL Est Cr Clr Drug Dosing 122.16 mL/min Estimated GFR (MDRD) > 60 BUN/Creatinine Ratio 14.00 Glucose 101 (74-105) mg/dL Calcium 10.1 (8.4-10.2) mg/dl Total Bilirubin 1.2 H (0.2-1.0) mg/dL AST 46 H (10-42) IU/L ALT 77 H (10-60) IU/L Alkaline Phosphatase 171 H (42-121) IU/L Troponin I < 0.02 (0.00-0.02) ng/ml Total Protein 8.0 (6.7-8.2) g/dl Albumin 4.8 (3.2-5.5) g/dl Globulin 3.2 Albumin/Globulin Ratio 1.50 Amylase (28-100) U/L Lipase (22-51) U/L Urine Color Yellow (YELLOW) Urine Appearance Clear (CLEAR) Urine pH 8.0 (5.0-9.0) Ur Specific [place] 1.020 (1.005-1.030) Urine Protein Negative (NEGATIVE) Urine Glucose (UA) Negative (NEGATIVE) Urine Ketones Negative (NEGATIVE) Urine Occult Blood Trace-intact H (NEGATIVE) Urine Nitrite Negative (NEGATIVE) Urine Bilirubin Negative (NEGATIVE) Urine Urobilinogen 0.2 (0.2-1.0) mg/dL Ur Leukocyte Esterase Negative (NEGATIVE) Urine RBC 0-5 /HPF Urine WBC 0-5 (0-5/HPF) /HPF Ur Epithelial Cells Rare (NOT SEEN) /HPF Amorphous Sediment Few (NOT SEEN) /HPF Urine Bacteria Rare (0-FEW/HPF) /HPF Urine Mucus Few H (NOT SEEN) /LPF Urine Opiates Screen Negative (NEGATIVE) Ur Oxycodone Screen Negative (NEGATIVE) Urine Methadone Screen Negative (NEGATIVE) Ur Barbiturates Screen Negative (NEGATIVE) U Tricyclic Antidepress Negative (NEGATIVE) Ur Phencyclidine Scrn Negative (NEGATIVE) Ur Amphetamine Screen Negative (NEGATIVE) U Methamphetamines Scrn Negative (NEGATIVE) Urine MDMA Screen Negative (NEGATIVE) U Benzodiazepines Scrn Negative (NEGATIVE) Urine Cocaine Screen Negative (NEGATIVE) U Marijuana (THC) Screen Negative (NEGATIVE) Meds: Medications Discontinued Medications Generic Name Dose Route Start Last Admin Trade Name Shane PRN Reason Stop Dose Admin Al Hydroxide/Mg Hydroxide 30 ml 11/07/19 10:03 11/07/19 10:06 Gi Cocktail PO 11/07/19 10:04 30 ml ONETIME ONE Administration - Re-Assessments/Exams Free Text/Narrative Re-Assessment/Exam: 11/07/19 10:06 The patient was advised of the lab and EKG results while in the ED. The patient reported his pain continued to be a 3-4/10. The patient reports he was diagnosed with sludge in his gallbladder a few years ago, but has been also diagnosed with GERD. The patient was advised the coffee and sausage may have caused either acid reflux or gallbladder pain. 11/07/19 10:22 After the GI Cocktail, the patient reported his pain was a 1-2/10. Departure - Departure Time of Disposition: 10:19 Disposition: Home, Self-Care 01 Condition: Fair Clinical Impression: Right upper quadrant abdominal pain GERD (gastroesophageal reflux disease) Qualifiers: Esophagitis presence: esophagitis presence not specified Qualified Code(s): K21.9 - Gastro-esophageal reflux disease without esophagitis - Discharge Information *PRESCRIPTION DRUG MONITORING PROGRAM REVIEWED*: Not Applicable *COPY OF PRESCRIPTION DRUG MONITORING REPORT IN PATIENT PATRICK: Not Applicable Instructions: Gastroesophageal Reflux Disease, Adult, [id number], Gallbladder Eating Plan Forms: ED Department Discharge Care Plan Goals: The patient was advised of the examination, lab and EKG results during the visit. The patient was given a GI Cocktail which improved his symptoms. The patient was encouraged to continue with his current medication. The patient should follow-up with his primary care facility for continued evaluation and further management. If the patient has any additional symptoms or concerns, the patient should either return to the emergency department or visit his primary care facility. Sepsis Event Note - Evaluation Sepsis Screening Result: No Definite Risk - Focused Exam Vital Signs: Vital Signs Temp Pulse Resp BP Pulse Ox 11/07/19 09:24 36.4 C 83 18 150/95 H 100 Date Exam was Performed: 11/07/19 Time Exam was Performed: 10:19 - My Orders Last 24 Hours: My Active Orders 11/07/19 09:29 EKG Documentation Completion [RC] URGENT - Assessment/Plan Last 24 Hours: My Active Orders 11/07/19 09:29 EKG Documentation Completion [RC] URGENT
[2019-11-07 09:59] LABS: ANION GAP 13.6; CHLORIDE,CL 104 mmol/L (101-111); SODIUM,NA 139 mmol/L (135-145)
[2019-11-07] MEDS ORDERED: GI Cocktail Oral Solution 30 ML PO ONE (10:03)
== END 2019-11-07 10:37 | disposition home or self-care (01) ==
LOC: DL.ED 09:19
DX: K21.9 Gastro-esophageal reflux disease without esophagitis (principal); Z90.49 Acquired absence of other specified parts of digestive tract; Z88.8 Allergy status to other drugs, medicaments and biological substances; Z79.899 Other long term (current) drug therapy
CPT/HCPCS: 36415; 80053; 80305; 81001; 82150; 83690; 84484; 85025; 85379; 93005; 99284; A9270

== ENCOUNTER 2019-12-17 20:22 | Emergency (ER) | payer BC ==
[2019-12-17] MEDS ORDERED: Cyclobenzaprine 10 MG Tab PO ONE (20:23)
[2019-12-17] MEDS ORDERED: diphenhydrAMINE 50 MG/ML SDV IVPUSH ONE (21:24)
[2019-12-17] MEDS ORDERED: Ketorolac 30 MG/ML SDV IVPUSH ONE (21:24)
[2019-12-17] MEDS ORDERED: Sodium Chloride 0.9% 1,000 ML IV ONE (21:24)
[2019-12-17] MEDS ORDERED: Sodium Chloride 0.9% 10 ML Syringe FLUSH PRN (21:25)
--- NOTE | 2019-12-17 22:11 | EDM.PDOC ---
ED HPI GENERAL MEDICAL PROBLEM - General Chief Complaint: Headache Stated Complaint: REALLY BAD HEADACHES Time Seen by Provider: 12/17/19 21:17 Source of Information: Reports: Patient, RN, RN Notes Reviewed History Limitations: Reports: No Limitations - History of Present Illness INITIAL COMMENTS - FREE TEXT/NARRATIVE: patient presents to ER with complaint of headache since Wednesday at 2:00. Patient states the headache began dull and has progressively gotten worse, rating the pain a 6/10 right now. Patient states he just got over a sinus infection recently. Patient admits to chills, decreased appetite, nausea, malaise. Denies sore throat, cough, vomiting. Patient states he does not have a history of migraine, but began getting headaches about a month ago. Patient does complain of some achiness in the lateral neck bilaterally, and in the back. 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 Posterior Head Pain Score (Numeric/FACES): 6 - Related Data Allergies Allergy/AdvReac Type Severity Reaction Status Date / Time bupropion Allergy Agitation Verified 12/17/19 21:06 Home Meds: Home Meds Psyllium Husk [Metamucil] 1 dose PO DAILY PRN 09/04/16 [History] Acetaminophen [Tylenol] 650 mg PO Q4H PRN 09/07/16 [History] Esomeprazole Magnesium [Nexium] 40 mg PO DAILY 09/28/19 [History] Past Medical History HEENT History: Reports: Epistaxis, Impaired Vision, Other (See Below) Other HEENT History: wears glasses Cardiovascular History: Reports: Other (See Below) Other Cardiovascular History: mitral valve regurgitation Respiratory History: Reports: None Gastrointestinal History: Reports: Chronic Constipation, GERD, Other (See Below) Other Gastrointestinal History: fatty liver with elevated lft's. HEPATIC STEATOSIS Genitourinary History: Reports: Renal Calculus Musculoskeletal History: Reports: Back Pain, Chronic Neurological History: Reports: None Psychiatric History: Reports: Anxiety, Depression, Panic Attack Endocrine/Metabolic History: Reports: None Hematologic History: Reports: None Immunologic History: Reports: None Oncologic (Cancer) History: Reports: None Dermatologic History: Reports: None - Infectious Disease History Infectious Disease History: Reports: Chicken Pox, Measles, Shingles - Past Surgical History Head Surgeries/Procedures: Reports: None HEENT Surgical History: Reports: None Respiratory Surgical History: Reports: None GI Surgical History: Reports: Appendectomy, EGD Male Surgical History: Reports: None, Circumcision Musculoskeletal Surgical History: Reports: Other (See Below) Other Musculoskeletal Surgeries/Procedures:: Fracture right arm Social & Family History - Family History Family Medical History: Noncontributory - Tobacco Use Smoking Status *Q: Current Status Unknown - Caffeine Use Caffeine Use: Reports: Coffee, Soda, Tea Caffeine Use Comment: 16oz daily - Alcohol Use Date of Last Drink: 12/14/19 - Recreational Drug Use Recreational Drug Use: No - Living Situation & Occupation Living situation: Reports: Occupation: Student ED ROS GENERAL - Review of Systems Review Of Systems: Comprehensive ROS is negative, except as noted in HPI. - Physical Exam Exam: See Below Exam Limited By: No Limitations General Appearance: Alert, WD/WN, Mild Distress Eye Exam: Bilateral Eye: EOMI, Normal Inspection Ears: Normal External Exam, Hearing Grossly Normal Nose: Normal Inspection Throat/Mouth: Normal Inspection, Normal Voice, No Airway Compromise Head Exam: Atraumatic, Normocephalic Neck: Normal Inspection, Supple, Non-Tender, Full Range of Motion Respiratory/Chest: No Respiratory Distress, Lungs Clear, Normal Breath Sounds, No Accessory Muscle Use, Chest Non-Tender Cardiovascular: Normal Peripheral Pulses, Regular Rate, Rhythm, No Edema, No Gallop, No JVD, No Murmur, No Rub GI/Abdominal: Normal Bowel Sounds, Soft, Non-Tender (Male) Exam: Deferred Rectal (Males) Exam: Deferred Neuro Exam (Abbreviated): Alert, Oriented, CN II-XII Intact, Normal Cognition, Normal Gait, Normal Reflexes, No Motor/Sensory Deficits Back Exam: Normal Inspection, Full Range of Motion, NT Extremities: Normal Inspection, Normal Range of Motion, Non-Tender, No Pedal Edema, Normal Capillary Refill Psychiatric: Normal Affect, Normal Mood Skin Exam: Warm, Dry, Intact, Normal Color, No Rash Course - Vital Signs Last Recorded V/S: Last Vital Signs Temp 97.5 F 12/17/19 20:52 Pulse 96 12/17/19 20:52 Resp 19 12/17/19 20:52 BP 141/102 H 12/17/19 20:52 Pulse Ox 98 12/17/19 20:52 - Orders/Labs/Meds Orders: Active Orders 24 hr Category Date Time Status Peripheral IV Care [RC] . DIRECTED Care 12/17/19 21:25 Active Sodium Chloride 0.9% [Normal Saline] 1,000 ml Med 12/17/19 21:24 Active IV .BOLUS Sodium Chloride 0.9% [Saline Flush] Med 12/17/19 21:25 Active 10 ml FLUSH ASDIRECTED PRN Peripheral IV Insertion Adult [OM.PC] Stat Oth 12/17/19 21:25 Ordered Medication Orders Sodium Chloride (Normal Saline) 1,000 mls @ 999 mls/hr IV .BOLUS ONE Stop: 12/17/19 22:24 Last Admin: 12/17/19 21:39 Dose: 999 mls/hr Sodium Chloride (Saline Flush) 10 ml FLUSH ASDIRECTED PRN PRN Reason: Keep Vein Open Last Admin: 12/17/19 21:30 Dose: 10 ml Meds: Medications Generic Name Dose Route Start Last Admin Trade Name Freq PRN Reason Stop Dose Admin Sodium Chloride 1,000 mls @ 999 mls/hr 12/17/19 21:24 12/17/19 21:39 Normal Saline IV 12/17/19 22:24 999 mls/hr .BOLUS ONE Administration Sodium Chloride 10 ml 12/17/19 21:25 12/17/19 21:30 Saline Flush FLUSH 10 ml ASDIRECTED PRN Administration Keep Vein Open Discontinued Medications Generic Name Dose Route Start Last Admin Trade Name Freq PRN Reason Stop Dose Admin Diphenhydramine HCl 25 mg 12/17/19 21:24 12/17/19 21:34 Benadryl IVPUSH 12/17/19 21:25 25 mg ONETIME ONE Administration Ketorolac Tromethamine 30 mg 12/17/19 21:24 12/17/19 21:37 Toradol IVPUSH 12/17/19 21:25 30 mg ONETIME ONE Administration - Re-Assessments/Exams Free Text/Narrative Re-Assessment/Exam: 12/17/19 22:20 patient states pain is now 1/10 after fluids and medications. Departure - Departure Time of Disposition: 22:40 Disposition: Home, Self-Care 01 Condition: Fair Clinical Impression: Tension-type headache - Discharge Information *PRESCRIPTION DRUG MONITORING PROGRAM REVIEWED*: No *COPY OF PRESCRIPTION DRUG MONITORING REPORT IN PATIENT PATRICK: No Instructions: Tension Headache, Adult, [id number] Forms: ED Department Discharge Additional Instructions: RX: Cyclobenzaprine Drink plenty of water Rest in quiet, dark room Follow up with your primary care facility if no improvement Continue to use Tylenol and/or Ibuprofen as directed for pain Sepsis Event Note - Evaluation Sepsis Screening Result: No Definite Risk - Focused Exam Vital Signs: Vital Signs Temp Pulse Resp BP Pulse Ox 12/17/19 20:52 97.5 F 96 19 141/102 H 98 Date Exam was Performed: 12/17/19 Time Exam was Performed: 22:18 - My Orders Last 24 Hours: My Active Orders 12/17/19 21:24 Sodium Chloride 0.9% [Normal Saline] 1,000 ml IV .BOLUS 12/17/19 21:25 Peripheral IV Care [RC] . DIRECTED Sodium Chloride 0.9% [Saline Flush] 10 ml FLUSH ASDIRECTED PRN Peripheral IV Insertion Adult [OM.PC] Stat - Assessment/Plan Last 24 Hours: My Active Orders 12/17/19 21:24 Sodium Chloride 0.9% [Normal Saline] 1,000 ml IV .BOLUS 12/17/19 21:25 Peripheral IV Care [RC] . DIRECTED Sodium Chloride 0.9% [Saline Flush] 10 ml FLUSH ASDIRECTED PRN Peripheral IV Insertion Adult [OM.PC] Stat
[2019-12-17] MEDS ORDERED: Cyclobenzaprine 10 MG Tab ONE (22:43)
[2019-12-17 22:50] VITALS: BP 136/90; PULSE 83
== END 2019-12-17 22:47 | disposition home or self-care (01) ==
LOC: DL.ED 20:22
DX: G44.209 Tension-type headache, unspecified, not intractable (principal); Z79.899 Other long term (current) drug therapy
CPT/HCPCS: 96361; 96374; 96375; 99284; A9270; J1200; J1885; J7030

== ENCOUNTER 2019-12-26 08:45 | Emergency (ER) | payer OTHER, BC ==
[2019-12-26 08:57] VITALS: PULSE 115
--- NOTE | 2019-12-26 09:02 | EDM.PDOC ---
<Marisela Redman - Last Filed: 12/26/19 09:40> ED HPI GENERAL MEDICAL PROBLEM - General Chief Complaint: Upper Extremity Injury/Pain Stated Complaint: FELL OFF LADDER Time Seen by Provider: 12/26/19 08:58 Source of Information: Reports: Patient History Limitations: Reports: No Limitations - History of Present Illness INITIAL COMMENTS - FREE TEXT/NARRATIVE: Patient reports to the ED by private vehicle with concerns of left shoulder pain. The patient states he was working on an 8 foot ladder when he fell down the ladder landing directly on his left shoulder. The patient reports 8/10, sharp pain, localized to the anterior left shoulder. He denies any midline spinal tenderness, neck pain, chest pain, elbow, hand, or wrist pain, numbness or tingling of the left upper extremity, shortness of breath. The patient did scrape his forehead on his descent. He denies striking his head. The patient reports history of a shoulder dislocation in high school but no prior surgical history involving his left upper extremity. Onset: Today Duration: Constant Location: Reports: Upper Extremity, Left Quality: Reports: Sharp Severity: Moderate Improves with: Reports: None Worsens with: Reports: None Context: Reports: Other (fall from ladder) Associated Symptoms: Reports: Nausea/Vomiting Left Shoulder Pain Score (Numeric/FACES): 8 - Related Data Allergies Allergy/AdvReac Type Severity Reaction Status Date / Time bupropion Allergy Agitation Verified 12/26/19 08:57 Home Meds: Home Meds Psyllium Husk [Metamucil] 1 dose PO DAILY PRN 09/04/16 [History] Acetaminophen [Tylenol] 650 mg PO Q4H PRN 09/07/16 [History] Esomeprazole Magnesium [Nexium] 40 mg PO DAILY 09/28/19 [History] Past Medical History HEENT History: Reports: Epistaxis, Impaired Vision, Other (See Below) Other HEENT History: wears glasses Cardiovascular History: Reports: Other (See Below) Other Cardiovascular History: mitral valve regurgitation Respiratory History: Reports: None Gastrointestinal History: Reports: Chronic Constipation, GERD, Other (See Below) Other Gastrointestinal History: fatty liver with elevated lft's. HEPATIC STEATOSIS Genitourinary History: Reports: Renal Calculus Musculoskeletal History: Reports: Back Pain, Chronic Neurological History: Reports: None Psychiatric History: Reports: Anxiety, Depression, Panic Attack Endocrine/Metabolic History: Reports: None Hematologic History: Reports: None Immunologic History: Reports: None Oncologic (Cancer) History: Reports: None Dermatologic History: Reports: None - Infectious Disease History Infectious Disease History: Reports: Chicken Pox, Measles, Shingles - Past Surgical History Head Surgeries/Procedures: Reports: None HEENT Surgical History: Reports: None Respiratory Surgical History: Reports: None GI Surgical History: Reports: Appendectomy, EGD Male Surgical History: Reports: None, Circumcision Musculoskeletal Surgical History: Reports: Other (See Below) Other Musculoskeletal Surgeries/Procedures:: Fracture right arm Social & Family History - Family History Family Medical History: Noncontributory - Caffeine Use Caffeine Use: Reports: Coffee, Soda, Tea Caffeine Use Comment: 16oz daily - Living Situation & Occupation Living situation: Reports: Occupation: Student Review of Systems - Review of Systems Review Of Systems: See Below Constitutional: Reports: No Symptoms Ears: Denies: Dizziness Cardiovascular: Denies: Chest Pain, Palpitations Musculoskeletal: Reports: Shoulder Pain (left, anterior, 8/10) Skin: Reports: Wound (abrasion to forehead) Neurological: Denies: Dizziness, Headache ED EXAM, GENERAL - Physical Exam Exam: See Below Exam Limited By: No Limitations General Appearance: Alert, No Apparent Distress Head: Normocephalic, Other (abrasion to forehead) Neck: Normal Inspection, Non-Tender. No: Limited Range of Motion, Tender Midline Respiratory/Chest: No Respiratory Distress, Lungs Clear, Normal Breath Sounds Cardiovascular: Regular Rate, Rhythm, No Murmur Back Exam: Full Range of Motion. No: Vertebral Tenderness Extremities: Arm Pain (palpable tenderness to left anterior shoulder, denies tenderness to palpation of clavicle, scapula), Limited Range of Motion (right shoulder, unable secondary to pain. Full ROM of right elbow, wrist, digits) Neurological: Alert, Oriented Skin Exam: Warm, Dry Course - Vital Signs Last Recorded V/S: Last Vital Signs Temp 98.0 F 12/26/19 08:50 Pulse 115 H 12/26/19 08:50 Resp 16 12/26/19 08:50 BP 162/99 H 12/26/19 08:50 Pulse Ox 98 12/26/19 08:50 - Orders/Labs/Meds Orders: Active Orders 24 hr Category Date Time Status Shoulder Comp Lt [CR] Stat Exams 12/26/19 08:54 Taken DME for Discharge [COMM] Stat Oth 12/26/19 09:21 Ordered Meds: Medications Discontinued Medications Generic Name Dose Route Start Last Admin Trade Name Shane PRN Reason Stop Dose Admin Hydrocodone Bitart/Acetaminophen 1 tab 12/26/19 09:17 12/26/19 09:21 [place] 325-10 Mg PO 12/26/19 09:18 1 tab ONETIME ONE Administration Ibuprofen 800 mg 12/26/19 09:17 12/26/19 09:21 Motrin PO 12/26/19 09:18 800 mg ONETIME ONE Administration - Radiology Interpretation Free Text/Narrative:: XR left shoulder unremarkable for bony pathology, no acute fracture or dislocation Departure - Departure Disposition: Home, Self-Care 01 Condition: Good Clinical Impression: Sprain of shoulder Qualifiers: Encounter type: initial encounter Shoulder sprain type: unspecified sprain Laterality: left Qualified Code(s): S43.402A - Unspecified sprain of left shoulder joint, initial encounter - Discharge Information *PRESCRIPTION DRUG MONITORING PROGRAM REVIEWED*: Not Applicable *COPY OF PRESCRIPTION DRUG MONITORING REPORT IN PATIENT PATRICK: Not Applicable Instructions: How to Use a Sling, [id number], Shoulder Pain, [id number] Forms: ED Department Discharge Additional Instructions: Rx: naprosyn, norco. Take as directed. Follow-up with primary care provider for re-evaluation in 2-3 days. May consider MRI to evaluate for rotator cuff pathology. Tylenol as needed for additional pain control. Ice to left shoulder, 20 minutes at a time, several times per day. Sling for comfort. Come out of the sling several times per day for gentle range of motion. Sepsis Event Note - Evaluation Sepsis Screening Result: No Definite Risk - Focused Exam Vital Signs: Vital Signs Temp Pulse Resp BP Pulse Ox 12/26/19 08:50 98.0 F 115 H 16 162/99 H 98 Date Exam was Performed: 12/26/19 Time Exam was Performed: 09:40 - My Orders Last 24 Hours: My Active Orders 12/26/19 08:54 Shoulder Comp Lt [CR] Stat - Assessment/Plan Last 24 Hours: My Active Orders 12/26/19 08:54 Shoulder Comp Lt [CR] Stat <Jenn Vicente - Last Filed: 12/26/19 09:41> Course - Radiology Interpretation Free Text/Narrative:: [facility] [place] [facility] Final Radiology Report Call: [phone] assistance Online chat: [email or web address] Name: FELIX WEBB Age: 34Years M Date: 12/26/2019 SSN: -- : [id number] Study: XR SHOULDER COMPLETE MIN OF 2 VIEWS LEFT Requesting Physician: JENN VICENTE Images: 3 Addl Studies: Provided Clinical History: Contrast: Contrast Medium: Contrast Amount: Contrast Method: CONFIDENTIALITY STATEMENT This report is intended only for use by the referring physician, and only in accordance with law. If you received this in error, call [phone]. Page 1 of 1 PROCEDURE INFORMATION: Exam: XR Left Shoulder Exam date and time: 12/26/2019 9:00 AM Age: 34 years old Clinical indication: Injury or trauma; Fall; Initial encounter; Blunt trauma ( contusions or hematomas; Shoulder; Left TECHNIQUE: Imaging protocol: XR Left shoulder. Views: 2 or more views. COMPARISON: No relevant prior studies available. FINDINGS: Bones/joints: No acute fracture or dislocation is identified. No focal lytic or blastic lesion is identified. There is no osseous erosion or cortical destruction. Soft tissues: The soft tissues appear grossly unremarkable. IMPRESSION: No acute fracture or dislocation identified. Thank you for allowing us to participate in the care of your patient. Dictated and Authenticated by: Dequan Ahn MD 12/26/2019 9:35 AM Central Time ([place] & [place]) - Re-Assessments/Exams Free Text/Narrative Re-Assessment/Exam: 12/26/19 09:27 I personally performed or re-performed the physical examination and medical decision making. I have verified all student documentation or findings, including history, physical exam and/or medical decision making. Departure - Departure Time of Disposition: 09:37 Sepsis Event Note - Focused Exam Date Exam was Performed: 12/26/19 Time Exam was Performed: 09:41
[2019-12-26] MEDS ORDERED: Ibuprofen 800 MG Tab PO ONE (09:17)
[2019-12-26] MEDS ORDERED: Acetaminophen/HYDROcodone 325-10 MG Tab PO ONE (09:17)
[2019-12-26 10:43] VITALS: BP 153/88
== END 2019-12-26 10:00 | disposition home or self-care (01) ==
LOC: DL.ED 08:45
DX: S43.402A Unspecified sprain of left shoulder joint, initial encounter (principal); K21.9 Gastro-esophageal reflux disease without esophagitis; Z88.8 Allergy status to other drugs, medicaments and biological substances; Z79.899 Other long term (current) drug therapy; W11.XXXA Fall on and from ladder, initial encounter; Y99.0 Civilian activity done for income or pay
CPT/HCPCS: 73030; 99283; A9270

== ENCOUNTER 2019-12-29 10:13 | Emergency (ER) | payer BC, OTHER ==
[2019-12-29 10:23] VITALS: BP 139/100; PULSE 98
--- NOTE | 2019-12-29 10:47 | EDM.PDOC ---
<Marisela Redman - Last Filed: 12/29/19 11:46> ED HPI GENERAL MEDICAL PROBLEM - General Chief Complaint: ENT Problem Stated Complaint: FLU LIKE SYMPTOMS Time Seen by Provider: 12/29/19 10:40 Source of Information: Reports: Patient History Limitations: Reports: No Limitations - History of Present Illness INITIAL COMMENTS - FREE TEXT/NARRATIVE: Patient presents to the ED by private vehicle with concerns of "feeling in a fog ," nasal congestion, and cough. The patient is unsure if medication use is related to feeling foggy. The patient describes taking an intermittent and unpredictable course of ibuprofen, naproxen, tylenol, hydrocodone, and flexeril. The patient did fall on his left shoulder on Wednesday and had presented to the ED, xrays at that time did not reveal a fracture. The patient also reports seeing Dr. Acosta in orthopedics during this week, the patient reports that he is supposed to see him again in 2 weeks. The patient also reports symptoms of nasal congestion and cough which he has been suffering from since October. He has been using flonase and seferino without any relief. Onset: Gradual Duration: Constant Location: Reports: Head Associated Symptoms: Denies: Fever/Chills Treatments CALL OR CONTACT CENTRE TEAM LEADER: Reports: Acetaminophen, NSAIDS, Other (see below) (hydrocodone, flexeril, flonase, claritin) - Related Data Allergies Allergy/AdvReac Type Severity Reaction Status Date / Time bupropion Allergy Agitation Verified 12/29/19 10:20 Home Meds: Home Meds Psyllium Husk [Metamucil] 1 dose PO DAILY PRN 09/04/16 [History] Acetaminophen [Tylenol] 650 mg PO Q4H PRN 09/07/16 [History] Esomeprazole Magnesium [Nexium] 40 mg PO DAILY 09/28/19 [History] Past Medical History HEENT History: Reports: Epistaxis, Impaired Vision, Other (See Below) Other HEENT History: wears glasses Cardiovascular History: Reports: Other (See Below) Other Cardiovascular History: mitral valve regurgitation Respiratory History: Reports: None Gastrointestinal History: Reports: Chronic Constipation, GERD, Other (See Below) Other Gastrointestinal History: fatty liver with elevated lft's. HEPATIC STEATOSIS Genitourinary History: Reports: Renal Calculus Musculoskeletal History: Reports: Back Pain, Chronic, Other (See Below) Other Musculoskeletal History: shoulder strain left Neurological History: Reports: None Psychiatric History: Reports: Anxiety, Depression, Panic Attack Endocrine/Metabolic History: Reports: None Hematologic History: Reports: None Immunologic History: Reports: None Oncologic (Cancer) History: Reports: None Dermatologic History: Reports: None - Infectious Disease History Infectious Disease History: Reports: None - Past Surgical History Head Surgeries/Procedures: Reports: None HEENT Surgical History: Reports: None Respiratory Surgical History: Reports: None GI Surgical History: Reports: Appendectomy, EGD Male Surgical History: Reports: None, Circumcision Musculoskeletal Surgical History: Reports: Other (See Below) Other Musculoskeletal Surgeries/Procedures:: Fracture right arm Social & Family History - Family History Family Medical History: Noncontributory - Tobacco Use Smoking Status *Q: Never Smoker Second Hand Smoke Exposure: No - Caffeine Use Caffeine Use: Reports: Coffee Caffeine Use Comment: 16oz daily - Alcohol Use Days Per Week of Alcohol Use: 1 Number of Drinks Per Day: 4 Total Drinks Per Week: 4 - Recreational Drug Use Recreational Drug Use: No - Living Situation & Occupation Living situation: Reports: Occupation: Student ED ROS ENT - Review of Systems Review Of Systems: See Below Constitutional: Denies: Fever, Chills Respiratory: Reports: Cough. Denies: Shortness of Breath, Wheezing GI/Abdominal: Denies: Abdominal Pain, Constipation, Diarrhea, Nausea, Vomiting Musculoskeletal: Reports: Shoulder Pain Neurological: Reports: Confusion (reports feeling "in a fog") ED EXAM, ENT - Physical Exam Exam: See Below Exam Limited By: No Limitations General Appearance: Alert, No Apparent Distress Ears: Normal External Exam, Normal Canal, Hearing Grossly Normal, Normal TMs Mouth/Throat: Normal Inspection, Normal Oropharynx Head: Atraumatic, Normocephalic. No: Facial Tenderness Neck: Normal Inspection, Supple, Non-Tender Respiratory/Chest: No Respiratory Distress, Lungs Clear, Normal Breath Sounds Cardiovascular: Regular Rate, Rhythm, No Edema, No Murmur GI/Abdominal: Soft, Non-Tender Neurological: Alert, Oriented Psychiatric: Normal Affect, Normal Mood Skin: Warm, Dry, Intact Lymphatic: No Adenopathy Course - Vital Signs Last Recorded V/S: Last Vital Signs Temp 36.2 C 12/29/19 10:21 Pulse 98 12/29/19 10:21 Resp 16 12/29/19 10:21 BP 139/100 H 12/29/19 10:21 Pulse Ox 98 12/29/19 10:21 - Orders/Labs/Meds Orders: Active Orders 24 hr Category Date Time Status Isolation [COMM] Routine Oth 12/29/19 10:40 Active Labs: Laboratory Tests 12/29/19 12/29/19 Range/Units 10:52 10:52 WBC 9.8 (5.0-10.0) 10^3/uL RBC 5.43 (4.6-6.2) 10^6/uL Hgb 15.8 (14.0-18.0) g/dL Hct 44.6 (40.0-54.0) % MCV 82.1 (80-100) fL MCH 29.1 (27.0-34.0) pg MCHC 35.4 H (33.0-35.0) g/dL Plt Count 219 (150-450) 10^3/uL Neut % (Auto) 62.3 (42.2-75.2) % Lymph % (Auto) 30.2 (20.5-50.1) % [place] % (Auto) 5.7 (2-8) % Eos % (Auto) 1.6 (1.0-3.0) % Baso % (Auto) 0.2 (0.0-1.0) % Sodium 139 (136-145) mmol/L Potassium 4.0 (3.5-5.1) mmol/L Chloride 104 (98-107) mmol/L Carbon Dioxide 26 (21-32) mmol/L Anion Gap 13.0 (7-13) mEq/L BUN 10 (7-18) mg/dL Creatinine 0.77 (0.70-1.30) mg/dL Est Cr Clr Drug Dosing 158.65 mL/min Estimated GFR (MDRD) > 60 BUN/Creatinine Ratio 13.0 (No establ ref range) Glucose 93 (74-99) mg/dL Calcium 9.0 (8.5-10.1) mg/dL Total Bilirubin 0.9 (0.2-1.0) mg/dL AST 73 H (15-37) U/L ALT 130 H (16-63) U/L Alkaline Phosphatase 154 H (46-116) U/L Total Protein 7.9 (6.4-8.2) g/dL Albumin 4.3 (3.4-5.0) g/dL Globulin 3.6 Albumin/Globulin Ratio 1.2 Acetaminophen 0 L (10-30 (Therapeutic)) ug/mL Departure - Departure Time of Disposition: 11:46 Condition: Good Clinical Impression: Chronic sinusitis, Shoulder pain - Discharge Information *PRESCRIPTION DRUG MONITORING PROGRAM REVIEWED*: Not Applicable *COPY OF PRESCRIPTION DRUG MONITORING REPORT IN PATIENT PATRICK: Not Applicable Instructions: Shoulder Range of Motion Exercises, Sinusitis, Adult, Easy-to- Read Forms: ED Department Discharge Additional Instructions: Tylenol: Take 500 mg every 6 hours as needed. Ibuprofen: Take 400 mg every 6 hours as needed. Every 3 hours: take the opposite of what you took last. Keep a diary of what you take at what time. Flexeril: May take this medication up to three times a day as needed. May apply a topical lidocaine patch to left shoulder as needed. Flonase/Fluticasone nasal spray 2 sprays in each nostril once daily Claritin or Zyrtec daily If continue to suffer from sinus congestion: see primary care provider for further recommendations of chronic sinus congestion, consider referral to ENT. Sepsis Event Note - Evaluation Sepsis Screening Result: No Definite Risk - Focused Exam Vital Signs: Vital Signs Temp Pulse Resp BP Pulse Ox 12/29/19 10:21 36.2 C 98 16 139/100 H 98 Date Exam was Performed: 12/29/19 Time Exam was Performed: 11:46 <Jasbir Deleon - Last Filed: 12/29/19 11:49> Course - Re-Assessments/Exams Free Text/Narrative Re-Assessment/Exam: 12/29/19 11:49 I have examined the patient. I have discussed findings and treatment plan with the PA student. I agree with the assessment and plan in the following students note. Sepsis Event Note - Focused Exam Date Exam was Performed: 12/29/19 Time Exam was Performed: 11:49
[2019-12-29 11:25] LABS: CHLORIDE,CL 104 mmol/L (98-107); SODIUM,NA 139 mmol/L (136-145)
[2019-12-29 11:27] LABS: ACETAMINOPHEN 0 ug/mL (10-30 (Therapeutic))
== END 2019-12-29 11:55 | disposition home or self-care (01) ==
LOC: DL.ED 10:13
DX: J32.9 Chronic sinusitis, unspecified (principal); M25.512 Pain in left shoulder; K21.9 Gastro-esophageal reflux disease without esophagitis; Z79.899 Other long term (current) drug therapy; Z90.49 Acquired absence of other specified parts of digestive tract; Z88.8 Allergy status to other drugs, medicaments and biological substances
CPT/HCPCS: 36415; 80053; 80307; 85025; 87804; 99283

== ENCOUNTER 2020-02-19 06:57 | Emergency (ER) | payer BC ==
[2020-02-19 07:08] VITALS: BP 142/90; PULSE 70
[2020-02-19] MEDS ORDERED: Sodium Chloride 0.9% 10 ML Syringe FLUSH PRN (07:12)
--- NOTE | 2020-02-19 07:12 | EDM.PDOC ---
ED HPI GENERAL MEDICAL PROBLEM - General Chief Complaint: Chest Pain Stated Complaint: RACING HEART AND CHEST PAINS Time Seen by Provider: 02/19/20 07:12 Source of Information: Reports: Patient, Old Records, RN, RN Notes Reviewed History Limitations: Reports: No Limitations - History of Present Illness INITIAL COMMENTS - FREE TEXT/NARRATIVE: Pt presents to ER with c/o his heart racing, and burning in the chest. He reports thatof waking this morning feeling "not right" in general. Then in the shower he became anxious, felt his heart began to race, then got lightheaded, so he came to the ER. On arrival to the ER his heart rate was 73. Pt admits that he has anxiety with panic attacks, and he thought this was probably anxiety symptoms, but he felt he should be evaluated in the ER just in case. Onset: Today Duration: Recurring Location: Reports: Chest Quality: Reports: Burning Severity: Moderate Improves with: Reports: None Worsens with: Reports: None Associated Symptoms: Reports: No Other Symptoms Chest Pain Score (Numeric/FACES): 5 - Related Data Allergies Allergy/AdvReac Type Severity Reaction Status Date / Time bupropion Allergy Agitation Verified 12/29/19 10:20 Home Meds: Home Meds Psyllium Husk [Metamucil] 1 dose PO DAILY PRN 09/04/16 [History] Acetaminophen [Tylenol] 650 mg PO Q4H PRN 09/07/16 [History] Esomeprazole Magnesium [Nexium] 40 mg PO DAILY 09/28/19 [History] Past Medical History HEENT History: Reports: Epistaxis, Impaired Vision, Other (See Below) Other HEENT History: wears glasses Cardiovascular History: Reports: Other (See Below) Other Cardiovascular History: mitral valve regurgitation Respiratory History: Reports: None Gastrointestinal History: Reports: Chronic Constipation, GERD, Other (See Below) Other Gastrointestinal History: fatty liver with elevated lft's. HEPATIC STEATOSIS Genitourinary History: Reports: Renal Calculus Musculoskeletal History: Reports: Back Pain, Chronic, Other (See Below) Other Musculoskeletal History: shoulder strain left Neurological History: Reports: None Psychiatric History: Reports: Anxiety, Depression, Panic Attack Endocrine/Metabolic History: Reports: None Hematologic History: Reports: None Immunologic History: Reports: None Oncologic (Cancer) History: Reports: None Dermatologic History: Reports: None - Infectious Disease History Infectious Disease History: Reports: None - Past Surgical History Head Surgeries/Procedures: Reports: None HEENT Surgical History: Reports: None Respiratory Surgical History: Reports: None GI Surgical History: Reports: Appendectomy, EGD Male Surgical History: Reports: None, Circumcision Musculoskeletal Surgical History: Reports: Other (See Below) Other Musculoskeletal Surgeries/Procedures:: Fracture right arm Social & Family History - Family History Family Medical History: Noncontributory - Caffeine Use Caffeine Use: Reports: Coffee Caffeine Use Comment: 16oz daily - Alcohol Use Alcohol Use History: No - Recreational Drug Use Recreational Drug Use: Yes Drug Use in Last 12 Months: No Recreational Drug Type: Reports: Marijuana/Hashish Recreational Drug Use Frequency: Not Used In Over 1 Month - Living Situation & Occupation Living situation: Reports: Occupation: Student ED ROS GENERAL - Review of Systems Review Of Systems: Comprehensive ROS is negative, except as noted in HPI. ED EXAM, GENERAL - Physical Exam Exam: See Below Exam Limited By: No Limitations General Appearance: Alert, WD/WN, No Apparent Distress, Anxious Eye Exam: Bilateral Eye: Normal Inspection Nose: Normal Inspection, Normal Mucosa, No Blood Throat/Mouth: Normal Inspection, Normal Lips, Normal Teeth, Normal Gums, Normal Oropharynx, Normal Voice, No Airway Compromise Head: Atraumatic, Normocephalic Neck: Normal Inspection, Supple, Non-Tender, Full Range of Motion Respiratory/Chest: No Respiratory Distress, Lungs Clear, Normal Breath Sounds, No Accessory Muscle Use, Chest Non-Tender Cardiovascular: Normal Peripheral Pulses, Regular Rate, Rhythm, No Edema, No Gallop, No JVD, No Murmur, No Rub GI/Abdominal: Normal Bowel Sounds, Soft, Non-Tender, No Organomegaly, No Distention, No Abnormal Bruit, No Mass Back Exam: Normal Inspection Extremities: Normal Inspection, Normal Range of Motion, Non-Tender, Normal Capillary Refill, No Pedal Edema Neurological: Alert, Oriented, CN II-XII Intact, Normal Cognition, Normal Gait, No Motor/Sensory Deficits Psychiatric: Anxious Skin Exam: Warm, Dry, Intact, Normal Color, No Rash EKG INTERPRETATION EKG Date: 02/19/20 Time: 07:03 Rhythm: NSR [place]: Normal P-Wave: Present QRS: Normal ST-T: Normal QT: Normal Comparison: No Change Course - Vital Signs Last Recorded V/S: Last Vital Signs Temp 97.1 F 02/19/20 07:05 Pulse 70 02/19/20 07:05 Resp 15 02/19/20 07:05 BP 142/90 H 02/19/20 07:05 Pulse Ox 100 02/19/20 07:05 - Orders/Labs/Meds Orders: Active Orders 24 hr Category Date Time Status EKG 12 Lead [EKG Documentation Completion] [RC] STAT Care 02/19/20 07:12 Active Peripheral IV Care [RC] . DIRECTED Care 02/19/20 07:13 Active Chest 1V Frontal [CR] Stat Exams 02/19/20 07:12 Taken Sodium Chloride 0.9% [Saline Flush] Med 02/19/20 07:12 Active 10 ml FLUSH ASDIRECTED PRN Peripheral IV Insertion Adult [OM.PC] Stat Oth 02/19/20 07:12 Ordered Medication Orders Sodium Chloride (Saline Flush) 10 ml FLUSH ASDIRECTED PRN PRN Reason: Keep Vein Open Last Admin: 02/19/20 07:24 Dose: 10 ml Labs: Laboratory Tests 02/19/20 02/19/20 02/19/20 Range/Units 07:09 07:09 07:09 WBC 9.0 (5.0-10.0) 10^3/uL RBC 5.37 (4.6-6.2) 10^6/uL Hgb 15.6 (14.0-18.0) g/dL Hct 44.3 (40.0-54.0) % MCV 82.5 (80-100) fL MCH 29.1 (27.0-34.0) pg MCHC 35.2 H (33.0-35.0) g/dL Plt Count 259 (150-450) 10^3/uL Neut % (Auto) 43.3 (42.2-75.2) % Lymph % (Auto) 48.6 (20.5-50.1) % [place] % (Auto) 5.8 (2-8) % Eos % (Auto) 1.9 (1.0-3.0) % Baso % (Auto) 0.4 (0.0-1.0) % Add Manual Diff Yes Neutrophils % (Manual) 44 (42-75) % Band Neutrophils % 1 % Lymphocytes % (Manual) 50 (20-50) % Monocytes % (Manual) 4 (2-8) % Eosinophils % (Manual) 1 (1-3) % D-Dimer, Quantitative 192 (0-400) ng/mL Sodium 140 (136-145) mmol/L Potassium 3.9 (3.5-5.1) mmol/L Chloride 104 (98-107) mmol/L Carbon Dioxide 26 (21-32) mmol/L Anion Gap 13.9 H (7-13) mEq/L BUN 14 (7-18) mg/dL Creatinine 1.04 (0.70-1.30) mg/dL Est Cr Clr Drug Dosing 117.46 mL/min Estimated GFR (MDRD) > 60 BUN/Creatinine Ratio 13.5 (No establ ref range) Glucose 96 (74-99) mg/dL Calcium 9.0 (8.5-10.1) mg/dL Total Bilirubin 0.6 (0.2-1.0) mg/dL AST 56 H (15-37) U/L ALT 182 H (16-63) U/L Alkaline Phosphatase 172 H (46-116) U/L Troponin I < 0.017 (0.000-0.056) ng/mL Total Protein 7.5 (6.4-8.2) g/dL Albumin 4.2 (3.4-5.0) g/dL Globulin 3.3 Albumin/Globulin Ratio 1.3 Amylase 34 (25-115) U/L Lipase 109 (73-393) U/L Meds: Medications Generic Name Dose Route Start Last Admin Trade Name Freq PRN Reason Stop Dose Admin Sodium Chloride 10 ml 02/19/20 07:12 02/19/20 07:24 Saline Flush FLUSH 10 ml ASDIRECTED PRN Administration Keep Vein Open - Radiology Interpretation Free Text/Narrative:: XR Chest: no acute process, see Rad. report. Departure - Departure Time of Disposition: 07:50 Disposition: Home, Self-Care 01 Condition: Good Clinical Impression: Palpitations, Atypical chest pain, Anxiety, Elevated liver enzymes Instructions: Palpitations, Nonspecific Chest Pain, Adult, Living With Anxiety , Fatty Liver Disease, Nonalcoholic Fatty Liver Disease Diet Forms: ED Department Discharge Additional Instructions: Follow up with your adult services librarian as planned. Follow up with your primary doctor for further evaluation of elevated liver enzymes, and fatty liver disease. Consider consulting with a counselor for anxiety control. Sepsis Event Note - Evaluation Sepsis Screening Result: No Definite Risk - Focused Exam Vital Signs: Vital Signs Temp Pulse Resp BP Pulse Ox 02/19/20 07:05 97.1 F 70 15 142/90 H 100 Date Exam was Performed: 02/19/20 Time Exam was Performed: 07:47 - My Orders Last 24 Hours: My Active Orders 02/19/20 07:12 EKG 12 Lead [EKG Documentation Completion] [RC] STAT Chest 1V Frontal [CR] Stat Sodium Chloride 0.9% [Saline Flush] 10 ml FLUSH ASDIRECTED PRN Peripheral IV Insertion Adult [OM.PC] Stat 02/19/20 07:13 Peripheral IV Care [RC] . DIRECTED - Assessment/Plan Last 24 Hours: My Active Orders 02/19/20 07:12 EKG 12 Lead [EKG Documentation Completion] [RC] STAT Chest 1V Frontal [CR] Stat Sodium Chloride 0.9% [Saline Flush] 10 ml FLUSH ASDIRECTED PRN Peripheral IV Insertion Adult [OM.PC] Stat 02/19/20 07:13 Peripheral IV Care [RC] . DIRECTED
[2020-02-19 07:38] LABS: ANION GAP 13.9 mEq/L (7-13); CHLORIDE,CL 104 mmol/L (98-107); SODIUM,NA 140 mmol/L (136-145)
== END 2020-02-19 07:59 | disposition home or self-care (01) ==
LOC: DL.ED 06:57
DX: F41.9 Anxiety disorder, unspecified (principal); R07.89 Other chest pain; R74.8 Abnormal levels of other serum enzymes; K21.9 Gastro-esophageal reflux disease without esophagitis; Z88.8 Allergy status to other drugs, medicaments and biological substances; Z79.899 Other long term (current) drug therapy
CPT/HCPCS: 36415; 71045; 80053; 82150; 83690; 84484; 85025; 85379; 93005; 99285-25

== ENCOUNTER 2020-03-09 12:41 | Emergency (ER) | payer BC ==
[2020-03-09 12:52] VITALS: BP 135/93; PULSE 72
[2020-03-09 13:54] LABS: CHLORIDE,CL 103 mmol/L (98-107); SODIUM,NA 139 mmol/L (136-145)
--- NOTE | 2020-03-09 14:21 | EDM.PDOC ---
Scribed by Alexa James 03/09/20 [id number] for Aditi Honeycutt NP ED HPI GENERAL MEDICAL PROBLEM - General Chief Complaint: Chest Pain Stated Complaint: chest pain/sob Time Seen by Provider: 03/09/20 12:53 Source of Information: Reports: Patient, RN, RN Notes Reviewed History Limitations: Reports: No Limitations - History of Present Illness INITIAL COMMENTS - FREE TEXT/NARRATIVE: Patient presented to ER with mid sternal chest pain that radiated to left chest , burning in epigastric area and dizziness with exertion. States history of anxiety. Pain to shoulder blades as well. He rated his pain as a 7/10 when began , no 3-4/10 pinching/aggravating pain. History of GERD and anxiety. He has tingling in neck and jaw, down right arm. He also has shortness of breath with the pain, nausea and chest pain. He claims to have pinching chest pain. He also states his symptoms have improved since then began. He uses alcohol x1 a week. He uses chewing tobacco. Patient is scheduled to have a chest CT on March 18. He has been consulting with Dr. Merrill, nut picker. Onset: Gradual Duration: Constant Location: Reports: Chest Quality: Reports: Ache Severity: Moderate Improves with: Reports: None Worsens with: Reports: None Associated Symptoms: Reports: No Other Symptoms Middle Chest Pain Score (Numeric/FACES): 2 - Related Data Allergies Allergy/AdvReac Type Severity Reaction Status Date / Time bupropion Allergy Agitation Verified 03/09/20 12:49 Home Meds: Home Meds Psyllium Husk [Metamucil] 1 dose PO DAILY PRN 09/04/16 [History] Acetaminophen [Tylenol] 650 mg PO Q4H PRN 09/07/16 [History] Esomeprazole Magnesium [Nexium] 40 mg PO DAILY 09/28/19 [History] Past Medical History HEENT History: Reports: Epistaxis, Impaired Vision, Other (See Below) Other HEENT History: wears glasses Cardiovascular History: Reports: Other (See Below) Other Cardiovascular History: mitral valve regurgitation Respiratory History: Reports: None Gastrointestinal History: Reports: Chronic Constipation, GERD, Other (See Below) Other Gastrointestinal History: fatty liver with elevated lft's. HEPATIC STEATOSIS Genitourinary History: Reports: Renal Calculus Musculoskeletal History: Reports: Back Pain, Chronic, Other (See Below) Other Musculoskeletal History: shoulder strain left Neurological History: Reports: None Psychiatric History: Reports: Anxiety, Depression, Panic Attack Endocrine/Metabolic History: Reports: None Hematologic History: Reports: None Immunologic History: Reports: None Oncologic (Cancer) History: Reports: None Dermatologic History: Reports: None - Infectious Disease History Infectious Disease History: Reports: None - Past Surgical History Head Surgeries/Procedures: Reports: None HEENT Surgical History: Reports: None Respiratory Surgical History: Reports: None GI Surgical History: Reports: Appendectomy, EGD Male Surgical History: Reports: None, Circumcision Musculoskeletal Surgical History: Reports: Other (See Below) Other Musculoskeletal Surgeries/Procedures:: Fracture right arm Social & Family History - Family History Family Medical History: Noncontributory - Caffeine Use Caffeine Use: Reports: Coffee Caffeine Use Comment: 16oz daily - Living Situation & Occupation Living situation: Reports: Occupation: Student ED ROS GENERAL - Review of Systems Review Of Systems: Comprehensive ROS is negative, except as noted in HPI. ED EXAM, GENERAL - Physical Exam Exam: See Below Exam Limited By: No Limitations General Appearance: Anxious Eye Exam: Bilateral Eye: EOMI, Normal Inspection, PERRL Ears: Normal External Exam, Normal Canal, Hearing Grossly Normal, Normal TMs Nose: Normal Inspection, Normal Mucosa, No Blood Throat/Mouth: Normal Inspection, Normal Lips, Normal Teeth, Normal Gums, Normal Oropharynx, Normal Voice, No Airway Compromise Head: Atraumatic, Normocephalic Neck: Normal Inspection, Supple, Non-Tender, Full Range of Motion Respiratory/Chest: Other (chest heaviness) Cardiovascular: Normal Peripheral Pulses, Regular Rate, Rhythm, No Edema, No Gallop, No JVD, No Murmur, No Rub GI/Abdominal: Normal Bowel Sounds, Soft, Non-Tender, No Organomegaly, No Distention, No Abnormal Bruit, No Mass (Male) Exam: Deferred Rectal (Males) Exam: Deferred Back Exam: Normal Inspection, Full Range of Motion, NT Extremities: Normal Inspection, Normal Range of Motion, Non-Tender, Normal Capillary Refill, No Pedal Edema Neurological: Alert, Oriented, CN II-XII Intact, Normal Cognition, Normal Gait, Normal Reflexes, No Motor/Sensory Deficits Psychiatric: Anxious Skin Exam: Warm, Dry, Intact, Normal Color, No Rash Lymphatic: No Adenopathy Course - Vital Signs Last Recorded V/S: Last Vital Signs Temp 97.6 F 03/09/20 12:49 Pulse 72 03/09/20 12:49 Resp 16 03/09/20 12:49 BP 135/93 H 03/09/20 12:49 Pulse Ox 96 03/09/20 12:49 - Orders/Labs/Meds Orders: Active Orders 24 hr Category Date Time Status EKG Documentation Completion [RC] STAT Care 03/09/20 13:17 Active Labs: Laboratory Tests 03/09/20 03/09/20 03/09/20 Range/Units 13:28 13:28 13:28 WBC 7.0 (5.0-10.0) 10^3/uL RBC 5.32 (4.6-6.2) 10^6/uL Hgb 15.6 (14.0-18.0) g/dL Hct 43.6 (40.0-54.0) % MCV 82.0 (80-100) fL MCH 29.3 (27.0-34.0) pg MCHC 35.8 H (33.0-35.0) g/dL Plt Count 232 (150-450) 10^3/uL Neut % (Auto) 48.0 (42.2-75.2) % Lymph % (Auto) 43.0 (20.5-50.1) % [place] % (Auto) 7.5 (2-8) % Eos % (Auto) 1.1 (1.0-3.0) % Baso % (Auto) 0.4 (0.0-1.0) % D-Dimer, Quantitative 134 (0-400) ng/mL Sodium 139 (136-145) mmol/L Potassium 4.0 (3.5-5.1) mmol/L Chloride 103 (98-107) mmol/L Carbon Dioxide 26 (21-32) mmol/L Anion Gap 14.0 H (7-13) mEq/L BUN 15 (7-18) mg/dL Creatinine 1.21 (0.70-1.30) mg/dL Est Cr Clr Drug Dosing 100.96 mL/min Estimated GFR (MDRD) > 60 BUN/Creatinine Ratio 12.4 (No establ ref range) Glucose 96 (74-99) mg/dL Calcium 9.5 (8.5-10.1) mg/dL Total Bilirubin 0.6 (0.2-1.0) mg/dL AST 60 H (15-37) U/L ALT 152 H (16-63) U/L Alkaline Phosphatase 172 H (46-116) U/L Troponin I < 0.017 (0.000-0.056) ng/mL Total Protein 7.4 (6.4-8.2) g/dL Albumin 4.5 (3.4-5.0) g/dL Globulin 2.9 Albumin/Globulin Ratio 1.6 Amylase 33 (25-115) U/L Lipase 93 (73-393) U/L - Radiology Interpretation Free Text/Narrative:: Chest xray: FINDINGS: Lungs: Unremarkable. No consolidation. Pleural space: Unremarkable. No pleural effusion. No pneumothorax. Heart/Mediastinum: Unremarkable. No cardiomegaly. Bones/joints: Unremarkable. IMPRESSION: No acute findings. Thank you for allowing us to participate in the care of your patient. Dictated and Authenticated by: Amarjit Rahman DO 03/09/2020 1:57 PM Central Time ([place] & [place]) See rad report Departure - Departure Time of Disposition: 14:08 Disposition: Home, Self-Care 01 Reason for Transfer *Q: Other Condition: Fair Clinical Impression: Atypical chest pain, Elevated liver enzymes Instructions: Nonspecific Chest Pain, Adult, [id number], Chest Wall Pain, [id number] Forms: ED Department Discharge Additional Instructions: My try Ibuprofen as directed for pain Follow up with Dr. Merrill next week Follow up with chest CT as scheduled Rest Return to ER with any further problems or worsening of problems Sepsis Event Note - Evaluation Sepsis Screening Result: No Definite Risk - Focused Exam Vital Signs: Vital Signs Temp Pulse Resp BP Pulse Ox 03/09/20 12:49 97.6 F 72 16 135/93 H 96 Date Exam was Performed: 03/09/20 Time Exam was Performed: 14:07 - My Orders Last 24 Hours: My Active Orders 03/09/20 13:17 EKG Documentation Completion [RC] STAT - Assessment/Plan Last 24 Hours: My Active Orders 03/09/20 13:17 EKG Documentation Completion [RC] STAT I have read and agree with the documentation that has been completed regarding this visit. By signing this record, I attest that the documentation was completed in my physical presence and is an accurate record of the encounter.
== END 2020-03-09 14:18 | disposition home or self-care (01) ==
LOC: DL.ED 12:41
DX: R07.89 Other chest pain (principal); R79.89 Other specified abnormal findings of blood chemistry; K21.9 Gastro-esophageal reflux disease without esophagitis; Z88.8 Allergy status to other drugs, medicaments and biological substances; Z79.899 Other long term (current) drug therapy
CPT/HCPCS: 36415; 71045; 80053; 82150; 83690; 84484; 85025; 85379; 93005; 99285-25

== ENCOUNTER 2020-07-31 18:32 | Emergency (ER) | payer BC | END 2020-07-31 18:55 | disposition left against medical advice (07) | LOC: DL.ED 18:32 | DX: Z53.21 Procedure and treatment not carried out due to patient leaving prior to being seen by health care provider (principal) ==

== ENCOUNTER 2020-08-05 06:23 | Emergency (ER) | payer BC ==
[2020-08-05 06:46] VITALS: BP 152/98; PULSE 72
--- NOTE | 2020-08-05 06:51 | EDM.PDOC ---
<Jose Angel Israel - Last Filed: 08/05/20 06:46> ED HPI GENERAL MEDICAL PROBLEM - General Chief Complaint: Chest Pain Stated Complaint: chest pains hard time breathing [id number] Time Seen by Provider: 08/05/20 06:46 Source of Information: Reports: Patient History Limitations: Reports: No Limitations - History of Present Illness INITIAL COMMENTS - FREE TEXT/NARRATIVE: c/o on-off mid chest pain past few days, this am woke up feeling like there is something plugged in his chest and did cough it out but not totally cleared. Middle Chest Pain Score (Numeric/FACES): 5 - Related Data Allergies Allergy/AdvReac Type Severity Reaction Status Date / Time bupropion Allergy Agitation Verified 08/05/20 06:38 Home Meds: Home Meds Psyllium Husk [Metamucil] 1 dose PO DAILY PRN 09/04/16 [History] Acetaminophen [Tylenol] 650 mg PO Q4H PRN 09/07/16 [History] Esomeprazole Magnesium [Nexium] 40 mg PO DAILY 09/28/19 [History] Past Medical History HEENT History: Reports: Epistaxis, Impaired Vision, Other (See Below) Other HEENT History: wears glasses Cardiovascular History: Reports: Other (See Below) Other Cardiovascular History: mitral valve regurgitation Respiratory History: Reports: None Gastrointestinal History: Reports: Chronic Constipation, GERD, Other (See Below) Other Gastrointestinal History: fatty liver with elevated lft's. HEPATIC STEATOSIS Genitourinary History: Reports: Renal Calculus Musculoskeletal History: Reports: Back Pain, Chronic, Other (See Below) Other Musculoskeletal History: shoulder strain left Neurological History: Reports: None Psychiatric History: Reports: Anxiety, Depression, Panic Attack Endocrine/Metabolic History: Reports: None Hematologic History: Reports: None Immunologic History: Reports: None Oncologic (Cancer) History: Reports: None Dermatologic History: Reports: None - Infectious Disease History Infectious Disease History: Reports: None - Past Surgical History Head Surgeries/Procedures: Reports: None HEENT Surgical History: Reports: None Respiratory Surgical History: Reports: None GI Surgical History: Reports: Appendectomy, EGD Male Surgical History: Reports: None, Circumcision Musculoskeletal Surgical History: Reports: Other (See Below) Other Musculoskeletal Surgeries/Procedures:: Fracture right arm Social & Family History - Family History Family Medical History: Noncontributory - Tobacco Use Tobacco Use Status *Q: Never Tobacco User Second Hand Smoke Exposure: No - Caffeine Use Caffeine Use: Reports: None Caffeine Use Comment: 16oz daily - Alcohol Use Date of Last Drink: 07/29/20 - Recreational Drug Use Recreational Drug Use: No - Living Situation & Occupation Living situation: Reports: Occupation: Student ED ROS GENERAL - Review of Systems Review Of Systems: Comprehensive ROS is negative, except as noted in HPI. ED EXAM, GENERAL - Physical Exam Exam: See Below Exam Limited By: No Limitations General Appearance: Alert, WD/WN, Anxious, Mild Distress Ears: Hearing Grossly Normal Throat/Mouth: Normal Voice, No Airway Compromise Head: Atraumatic Neck: Non-Tender Respiratory/Chest: No Respiratory Distress, No Accessory Muscle Use, Rhonchi. No: Decreased Breath Sounds Cardiovascular: Regular Rate, Rhythm GI/Abdominal: Soft, Non-Tender (Male) Exam: Deferred Rectal (Males) Exam: Deferred Neurological: Alert, Oriented, Normal Cognition, Normal Gait, No Motor/Sensory Deficits Psychiatric: Flat Affect Skin Exam: Warm, Dry, Normal Color Lymphatic: No Adenopathy Departure - Departure Disposition: Home, Self-Care 01 Clinical Impression: Upper respiratory infection, viral Instructions: Upper Respiratory Infection, Adult, [id number] Forms: ED Department Discharge Care Plan Goals: The patient was advised of the examination, lab, EKG and x-ray results during the visit. The patient was encouraged to continue to monitor his symptoms. If the patient has any additional symptoms or concerns, the patient should either return to the emergency department or visit his primary care facility. Sepsis Event Note (ED) - Evaluation Sepsis Screening Result: No Definite Risk <Jasbir Deleon - Last Filed: 08/05/20 07:35> Course - Vital Signs Last Recorded V/S: Last Vital Signs Temp 35.5 C L 08/05/20 06:30 Pulse 72 08/05/20 06:46 Resp 16 08/05/20 06:46 BP 152/98 H 08/05/20 06:46 Pulse Ox 100 08/05/20 06:46 - Orders/Labs/Meds Orders: Active Orders 24 hr Category Date Time Status EKG 12 Lead [EKG Documentation Completion] [RC] STAT Care 08/05/20 06:44 Active Chest 1V Frontal [CR] Urgent Exams 08/05/20 06:46 Ordered Labs: Laboratory Tests 08/05/20 08/05/20 08/05/20 Range/Units 06:40 06:40 06:40 WBC 8.3 (5.0-10.0) 10^3/uL RBC 5.28 (4.6-6.2) 10^6/uL Hgb 15.3 (14.0-18.0) g/dL Hct 43.7 (40.0-54.0) % MCV 82.8 (80-100) fL MCH 29.0 (27.0-34.0) pg MCHC 35.0 (33.0-35.0) g/dL Plt Count 220 (150-450) 10^3/uL Neut % (Auto) 48.5 (42.2-75.2) % Lymph % (Auto) 41.6 (20.5-50.1) % [place] % (Auto) 7.6 (2-8) % Eos % (Auto) 1.8 (1.0-3.0) % Baso % (Auto) 0.5 (0.0-1.0) % D-Dimer, Quantitative 152 (0-400) ng/mL Sodium 143 (136-145) mmol/L Potassium 3.9 (3.5-5.1) mmol/L Chloride 107 (98-107) mmol/L Carbon Dioxide 25 (21-32) mmol/L Anion Gap 14.9 H (7-13) mEq/L BUN 13 (7-18) mg/dL Creatinine 0.95 (0.70-1.30) mg/dL Est Cr Clr Drug Dosing 128.59 mL/min Estimated GFR (MDRD) > 60 BUN/Creatinine Ratio 13.7 (No establ ref range) Glucose 93 (74-99) mg/dL Calcium 9.0 (8.5-10.1) mg/dL Total Bilirubin 0.9 (0.2-1.0) mg/dL AST 102 H (15-37) U/L ALT 327 H (16-63) U/L Alkaline Phosphatase 174 H (46-116) U/L Troponin I < 0.017 (0.000-0.056) ng/mL Total Protein 6.9 (6.4-8.2) g/dL Albumin 4.0 (3.4-5.0) g/dL Globulin 2.9 Albumin/Globulin Ratio 1.4 Urine Opiates Screen (NEGATIVE) Ur Oxycodone Screen (NEGATIVE) Urine Methadone Screen (NEGATIVE) Ur Barbiturates Screen (NEGATIVE) U Tricyclic Antidepress (NEGATIVE) Ur Phencyclidine Scrn (NEGATIVE) Ur Amphetamine Screen (NEGATIVE) U Methamphetamines Scrn (NEGATIVE) Urine MDMA Screen (NEGATIVE) U Benzodiazepines Scrn (NEGATIVE) Urine Cocaine Screen (NEGATIVE) U Marijuana (THC) Screen (NEGATIVE) 08/05/20 Range/Units 06:53 WBC (5.0-10.0) 10^3/uL RBC (4.6-6.2) 10^6/uL Hgb (14.0-18.0) g/dL Hct (40.0-54.0) % MCV (80-100) fL MCH (27.0-34.0) pg MCHC (33.0-35.0) g/dL Plt Count (150-450) 10^3/uL Neut % (Auto) (42.2-75.2) % Lymph % (Auto) (20.5-50.1) % [place] % (Auto) (2-8) % Eos % (Auto) (1.0-3.0) % Baso % (Auto) (0.0-1.0) % D-Dimer, Quantitative (0-400) ng/mL Sodium (136-145) mmol/L Potassium (3.5-5.1) mmol/L Chloride (98-107) mmol/L Carbon Dioxide (21-32) mmol/L Anion Gap (7-13) mEq/L BUN (7-18) mg/dL Creatinine (0.70-1.30) mg/dL Est Cr Clr Drug Dosing mL/min Estimated GFR (MDRD) BUN/Creatinine Ratio (No establ ref range) Glucose (74-99) mg/dL Calcium (8.5-10.1) mg/dL Total Bilirubin (0.2-1.0) mg/dL AST (15-37) U/L ALT (16-63) U/L Alkaline Phosphatase (46-116) U/L Troponin I (0.000-0.056) ng/mL Total Protein (6.4-8.2) g/dL Albumin (3.4-5.0) g/dL Globulin Albumin/Globulin Ratio Urine Opiates Screen Negative (NEGATIVE) Ur Oxycodone Screen Negative (NEGATIVE) Urine Methadone Screen Negative (NEGATIVE) Ur Barbiturates Screen Negative (NEGATIVE) U Tricyclic Antidepress Negative (NEGATIVE) Ur Phencyclidine Scrn Negative (NEGATIVE) Ur Amphetamine Screen Negative (NEGATIVE) U Methamphetamines Scrn Negative (NEGATIVE) Urine MDMA Screen Negative (NEGATIVE) U Benzodiazepines Scrn Negative (NEGATIVE) Urine Cocaine Screen Negative (NEGATIVE) U Marijuana (THC) Screen Negative (NEGATIVE) Departure - Departure Time of Disposition: 07:33 Condition: Fair Sepsis Event Note (ED) - Focused Exam Vital Signs: Vital Signs Temp Pulse Resp BP Pulse Ox 08/05/20 06:46 72 16 152/98 H 100 08/05/20 06:30 35.5 C L 70 18 149/100 H 100
[2020-08-05 07:18] LABS: ANION GAP 14.9 mEq/L (7-13); CHLORIDE,CL 107 mmol/L (98-107); SODIUM,NA 143 mmol/L (136-145)
--- NOTE | 2020-08-05 07:46 | CR ---
PROCEDURE INFORMATION: Exam: XR Chest, 1 View Exam date and time: 08/05/2020 7:22 AM Age: 34 years old Clinical indication: Chest pain TECHNIQUE: Imaging protocol: XR of the chest Views: Frontal portable view of the chest. COMPARISON: CR Chest 1V Frontal 03/09/2020 1:38 PM FINDINGS: Tubes, catheters and devices: EKG leads are present overlying the chest. Lungs: The lungs are clear bilaterally. The pulmonary vasculature is normal. Pleural space: No pleural effusion. No pneumothorax. Heart/Mediastinum: The heart is normal in size and contour. Mediastinum: Stable. Bones/joints: Stable. IMPRESSION: No acute cardiopulmonary abnormality identified.
== END 2020-08-05 07:40 | disposition home or self-care (01) ==
LOC: DL.ED 06:23
DX: J06.9 Acute upper respiratory infection, unspecified (principal); R07.9 Chest pain, unspecified; Z88.8 Allergy status to other drugs, medicaments and biological substances; K21.9 Gastro-esophageal reflux disease without esophagitis; Z90.49 Acquired absence of other specified parts of digestive tract; Z79.899 Other long term (current) drug therapy
CPT/HCPCS: 36415; 71045; 80053; 80305-QW; 84484; 85025; 85379; 93005; 99285-25

== ENCOUNTER 2020-10-13 07:44 | Emergency (ER) | payer BC ==
[2020-10-13 07:52] VITALS: BP 146/90; PULSE 82
--- NOTE | 2020-10-13 08:09 | EDM.PDOC ---
ED HPI GENERAL MEDICAL PROBLEM - General Chief Complaint: General Stated Complaint: STATED HEAT STROKE HEAT EXHAUSTION?? Time Seen by Provider: 10/13/20 08:08 Source of Information: Reports: Patient, RN, RN Notes Reviewed History Limitations: Reports: No Limitations - History of Present Illness INITIAL COMMENTS - FREE TEXT/NARRATIVE: Patient is a 34-year-old male who presents to ER with complaint of possible dehydration, heat exhaustion. Patient states he had a sweat lodge for his friend last night. States he was up very late, had some stressful interaction with family last night. But states he feels very fatigued, tired, nauseated from time to time. Denies any vomiting or diarrhea. Admits to chills, but denies fever. Denies chest pains or shortness of breath. Denies sore throat or cough. Patient states he did have COVID-19 in July. 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 Onset: Gradual - Related Data Allergies Allergy/AdvReac Type Severity Reaction Status Date / Time bupropion Allergy Agitation Verified 10/13/20 07:52 Home Meds: Home Meds Esomeprazole Magnesium [Nexium] 40 mg PO DAILY 09/28/19 [History] Past Medical History HEENT History: Reports: Epistaxis, Impaired Vision, Other (See Below) Other HEENT History: wears glasses Cardiovascular History: Reports: Other (See Below) Other Cardiovascular History: mitral valve regurgitation Respiratory History: Reports: None Gastrointestinal History: Reports: Chronic Constipation, GERD, Other (See Below) Other Gastrointestinal History: fatty liver with elevated lft's. HEPATIC STEATOSIS Genitourinary History: Reports: Renal Calculus Musculoskeletal History: Reports: Back Pain, Chronic, Other (See Below) Other Musculoskeletal History: shoulder strain left Neurological History: Reports: None Psychiatric History: Reports: Anxiety, Depression, Panic Attack Endocrine/Metabolic History: Reports: None Hematologic History: Reports: None Immunologic History: Reports: None Oncologic (Cancer) History: Reports: None Dermatologic History: Reports: None - Infectious Disease History Infectious Disease History: Reports: Novel Coronavirus - Past Surgical History Head Surgeries/Procedures: Reports: None HEENT Surgical History: Reports: None Respiratory Surgical History: Reports: None GI Surgical History: Reports: Appendectomy, EGD Male Surgical History: Reports: Circumcision Musculoskeletal Surgical History: Reports: Other (See Below) Other Musculoskeletal Surgeries/Procedures:: Fracture right arm Social & Family History - Family History Family Medical History: No Pertinent Family History - Tobacco Use Tobacco Use Status *Q: Never Tobacco User Second Hand Smoke Exposure: No - Caffeine Use Caffeine Use: Reports: None Caffeine Use Comment: 16oz daily - Recreational Drug Use Recreational Drug Use: No - Living Situation & Occupation Living situation: Reports: Occupation: Student ED ROS GENERAL - Review of Systems Review Of Systems: Comprehensive ROS is negative, except as noted in HPI. ED EXAM, GENERAL - Physical Exam Exam: See Below Exam Limited By: No Limitations General Appearance: Alert, WD/WN, No Apparent Distress Eye Exam: Bilateral Eye: EOMI, Normal Inspection Ears: Normal External Exam, Hearing Grossly Normal Nose: Normal Inspection Throat/Mouth: Normal Inspection, Normal Voice, No Airway Compromise Head: Atraumatic, Normocephalic Neck: Normal Inspection, Supple, Non-Tender, Full Range of Motion Respiratory/Chest: No Respiratory Distress, Lungs Clear, Normal Breath Sounds, No Accessory Muscle Use, Chest Non-Tender Cardiovascular: Normal Peripheral Pulses, Regular Rate, Rhythm, No Edema, No Gallop, No JVD, No Murmur, No Rub Peripheral Pulses: 2+: Radial (L), Radial (R) GI/Abdominal: Normal Bowel Sounds, Soft, Non-Tender (Male) Exam: Deferred Rectal (Males) Exam: Deferred Back Exam: Normal Inspection, Full Range of Motion, NT Extremities: Normal Inspection, Normal Range of Motion, Non-Tender, Normal Capillary Refill, No Pedal Edema Neurological: Alert, Oriented, CN II-XII Intact, Normal Cognition, Normal Gait, Normal Reflexes, No Motor/Sensory Deficits Psychiatric: Normal Mood, Flat Affect Skin Exam: Warm, Dry, Intact, Normal Color, No Rash Lymphatic: No Adenopathy Course - Vital Signs Last Recorded V/S: Last Vital Signs Temp 98.3 F 10/13/20 07:46 Pulse 82 10/13/20 07:46 Resp 18 10/13/20 07:46 BP 146/90 H 10/13/20 07:46 Pulse Ox 99 10/13/20 07:46 - Orders/Labs/Meds Orders: Active Orders 24 hr Category Date Time Status Lactated Ringers [Ringers, Lactated] 1,000 ml Med 10/13/20 08:19 Active IV .BOLUS Ondansetron [Zofran ODT] Med 10/13/20 09:15 Once 4 mg PO ONETIME ONE Isolation [COMM] Routine Oth 10/13/20 08:19 Active Medication Orders Lactated Ringer's (Ringers, Lactated) 1,000 mls @ 999 mls/hr IV .BOLUS ONE Stop: 10/13/20 09:19 Last Admin: 10/13/20 08:30 Dose: 999 mls/hr Documented by: JOHNNY Labs: Laboratory Tests 10/13/20 10/13/20 10/13/20 Range/Units 08:19 08:27 08:27 WBC 9.7 (5.0-10.0) 10^3/uL RBC 5.54 (4.6-6.2) 10^6/uL Hgb 16.3 (14.0-18.0) g/dL Hct 46.0 (40.0-54.0) % MCV 83.0 (80-100) fL MCH 29.4 (27.0-34.0) pg MCHC 35.4 H (33.0-35.0) g/dL Plt Count 220 (150-450) 10^3/uL Neut % (Auto) 57.7 (42.2-75.2) % Lymph % (Auto) 32.8 (20.5-50.1) % [place] % (Auto) 6.8 (2-8) % Eos % (Auto) 2.1 (1.0-3.0) % Baso % (Auto) 0.6 (0.0-1.0) % Add Manual Diff Yes Neutrophils % (Manual) 53 (42-75) % Band Neutrophils % 1 % Lymphocytes % (Manual) 40 (20-50) % Monocytes % (Manual) 5 (2-8) % Eosinophils % (Manual) 1 (1-3) % Sodium 139 (136-145) mmol/L Potassium 3.9 (3.5-5.1) mmol/L Chloride 103 (98-107) mmol/L Carbon Dioxide 25 (21-32) mmol/L Anion Gap 14.9 H (7-13) mEq/L BUN 15 (7-18) mg/dL Creatinine 1.07 (0.70-1.30) mg/dL Est Cr Clr Drug Dosing 114.17 mL/min Estimated GFR (MDRD) > 60 BUN/Creatinine Ratio 14.0 (No establ ref range) Glucose 103 H (74-99) mg/dL Calcium 9.3 (8.5-10.1) mg/dL Total Bilirubin 0.5 (0.2-1.0) mg/dL AST 57 H (15-37) U/L ALT 151 H (16-63) U/L Alkaline Phosphatase 220 H (46-116) U/L Total Protein 7.9 (6.4-8.2) g/dL Albumin 4.6 (3.4-5.0) g/dL Globulin 3.3 Albumin/Globulin Ratio 1.4 Urine Color Yellow (YELLOW) Urine Appearance Clear (CLEAR) Urine pH 6.5 (5.0-9.0) Ur Specific [place] 1.010 (1.005-1.030) Urine Protein Negative (NEGATIVE) Urine Glucose (UA) Negative (NEGATIVE) Urine Ketones Negative (NEGATIVE) Urine Occult Blood Negative (NEGATIVE) Urine Nitrite Negative (NEGATIVE) Urine Bilirubin Negative (NEGATIVE) Urine Urobilinogen 0.2 (0.2-1.0) mg/dL Ur Leukocyte Esterase Negative (NEGATIVE) Influenza A: Influenza B: Meds: Medications Generic Name Dose Route Start Last Admin Trade Name Freq PRN Reason Stop Dose Admin Lactated Ringer's 1,000 mls @ 999 mls/hr 10/13/20 08:19 10/13/20 08:30 Ringers, Lactated IV 10/13/20 09:19 999 mls/hr .BOLUS ONE Administration Departure - Departure Time of Disposition: 09:20 Disposition: Home, Self-Care 01 Condition: Good Clinical Impression: Dehydration Fatigue Qualifiers: Fatigue type: unspecified Qualified Code(s): R53.83 - Other fatigue - Discharge Information *PRESCRIPTION DRUG MONITORING PROGRAM REVIEWED*: No *COPY OF PRESCRIPTION DRUG MONITORING REPORT IN PATIENT PATRICK: No Instructions: Dehydration, Adult, [place]-je-[place]amo Forms: ED Department Discharge Additional Instructions: Drink plenty of fluids RX: Zofran Follow up with your primary care facility if no improvement Sepsis Event Note (ED) - Evaluation Sepsis Screening Result: No Definite Risk - Focused Exam Vital Signs: Vital Signs Temp Pulse Resp BP Pulse Ox 10/13/20 07:46 98.3 F 82 18 146/90 H 99 - My Orders Last 24 Hours: My Active Orders 10/13/20 08:19 Lactated Ringers [Ringers, Lactated] 1,000 ml IV .BOLUS Isolation [COMM] Routine 10/13/20 09:15 Ondansetron [Zofran ODT] 4 mg PO ONETIME ONE - Assessment/Plan Last 24 Hours: My Active Orders 10/13/20 08:19 Lactated Ringers [Ringers, Lactated] 1,000 ml IV .BOLUS Isolation [COMM] Routine 10/13/20 09:15 Ondansetron [Zofran ODT] 4 mg PO ONETIME ONE
[2020-10-13] MEDS ORDERED: Lactated Ringers 1,000 ML IV ONE (08:19)
[2020-10-13 09:06] LABS: ANION GAP 14.9 mEq/L (7-13); CHLORIDE,CL 103 mmol/L (98-107); SODIUM,NA 139 mmol/L (136-145)
[2020-10-13] MEDS ORDERED: Ondansetron 4 MG Tab.DIS PO ONE (09:15)
== END 2020-10-13 09:25 | disposition home or self-care (01) ==
LOC: DL.ED 07:44
DX: E86.0 Dehydration (principal); K21.9 Gastro-esophageal reflux disease without esophagitis; Z88.8 Allergy status to other drugs, medicaments and biological substances; Z90.49 Acquired absence of other specified parts of digestive tract; Z79.899 Other long term (current) drug therapy
CPT/HCPCS: 36415; 80053; 81003; 85025; 87804; 99283; 99284; A9270; J7120

== ENCOUNTER 2021-05-18 16:57 | Emergency (ER) | payer BC ==
[2021-05-18 17:18] VITALS: BP 164/90; PULSE 164
[2021-05-18 17:57] LABS: ANION GAP 18.8 mEq/L (7-13); CHLORIDE,CL 102 mmol/L (98-107); SODIUM,NA 142 mmol/L (136-145)
--- NOTE | 2021-05-18 17:58 | CR ---
PROCEDURE INFORMATION: Exam: XR Sinus Exam date and time: 05/18/2021 5:24 PM Age: 35 years old Clinical indication: Other: Pressure; Additional info: Sinus pain/pressure/headache TECHNIQUE: Imaging protocol: XR of the sinuses and paranasal structures. Views: Minimum of 3 views. COMPARISON: No relevant prior studies available. FINDINGS: Sinuses: No air-fluid level. Fairly symmetric aeration of the paranasal air sinuses. Bones/joints: No acute osseous abnormality. Soft tissues: Unremarkable. IMPRESSION: No air-fluid levels to suggest acute sinusitis.
[2021-05-18] MEDS ORDERED: predniSONE 20 MG Tab PO ONE (18:06)
[2021-05-18] MEDS ORDERED: hydrOXYzine HCl 25 MG Tab PO ONE (18:06)
--- NOTE | 2021-05-18 18:20 | EDM.PDOC ---
Scribed by Alexa James 05/18/21 [id number] for Declan Vicente MD ED HPI GENERAL MEDICAL PROBLEM - General Chief Complaint: General Stated Complaint: HEART PALPITATIONS, SINUS PROBLEMS Time Seen by Provider: 05/18/21 17:10 Source of Information: Reports: Patient, RN, RN Notes Reviewed History Limitations: Reports: No Limitations - History of Present Illness INITIAL COMMENTS - FREE TEXT/NARRATIVE: Patient presents to ED by POV presents with complaint of sinus pain and pressure and headache "mental fog" for the past couple of weeks. This morning he was in [place] where he went to a walk in clinic and was diagnosed with sinusitis. Driving home from [place], patient states he had palpitations all the way home so he presented to the ER. Denies chest pain Patient admits that he has had multiple evaluations for palpitations in the past but no cardiac finding or diagnosis. He does have history of anxiety. No recent medication changes. He has been taking over the counter Jennifer. Onset: Today Duration: Getting Worse Severity: Mild Improves with: Reports: None Worsens with: Reports: None Associated Symptoms: Reports: No Other Symptoms - Related Data Allergies Allergy/AdvReac Type Severity Reaction Status Date / Time bupropion Allergy Agitation Verified 05/18/21 17:27 Home Meds: Home Meds Esomeprazole Magnesium [Nexium] 40 mg PO DAILY 09/28/19 [History] Past Medical History HEENT History: Reports: Epistaxis, Impaired Vision, Other (See Below) Other HEENT History: wears glasses Cardiovascular History: Reports: Other (See Below) Other Cardiovascular History: mitral valve regurgitation Respiratory History: Reports: None Gastrointestinal History: Reports: Chronic Constipation, GERD, Other (See Below) Other Gastrointestinal History: fatty liver with elevated lft's. HEPATIC STEATOSIS Genitourinary History: Reports: Renal Calculus Musculoskeletal History: Reports: Back Pain, Chronic, Other (See Below) Other Musculoskeletal History: shoulder strain left Neurological History: Reports: None Psychiatric History: Reports: Anxiety, Depression, Panic Attack Endocrine/Metabolic History: Reports: None Hematologic History: Reports: None Immunologic History: Reports: None Oncologic (Cancer) History: Reports: None Dermatologic History: Reports: None - Infectious Disease History Infectious Disease History: Reports: Novel Coronavirus - Past Surgical History Head Surgeries/Procedures: Reports: None HEENT Surgical History: Reports: None Respiratory Surgical History: Reports: None GI Surgical History: Reports: Appendectomy, EGD Male Surgical History: Reports: Circumcision Musculoskeletal Surgical History: Reports: Other (See Below) Other Musculoskeletal Surgeries/Procedures:: Fracture right arm Social & Family History - Family History Family Medical History: No Pertinent Family History - Caffeine Use Caffeine Use: Reports: None Caffeine Use Comment: 16oz daily - Living Situation & Occupation Living situation: Reports: Occupation: Student ED ROS GENERAL - Review of Systems Review Of Systems: Comprehensive ROS is negative, except as noted in HPI. ED EXAM, GENERAL - Physical Exam Exam: See Below Exam Limited By: No Limitations General Appearance: Anxious Eye Exam: Bilateral Eye: EOMI, Normal Inspection, PERRL Nose: No Blood, Nasal Drainage, Other (Inferior turbinate injection and inflammation) Throat/Mouth: Normal Lips, Normal Teeth, Normal Gums, Normal Oropharynx (No redness. Postnasal drip.), Normal Voice, No Airway Compromise Head: Atraumatic, Normocephalic Neck: Normal Inspection, Supple, Non-Tender, Full Range of Motion Respiratory/Chest: No Respiratory Distress, Lungs Clear, Normal Breath Sounds, No Accessory Muscle Use, Chest Non-Tender Cardiovascular: Normal Peripheral Pulses, Regular Rate, Rhythm, No Edema, No Gallop, No JVD, No Murmur, No Rub GI/Abdominal: Normal Bowel Sounds, Soft, Non-Tender, No Organomegaly, No Distention, No Abnormal Bruit, No Mass (Male) Exam: Deferred Rectal (Males) Exam: Deferred Back Exam: Normal Inspection, Full Range of Motion, NT Extremities: Normal Inspection, Normal Range of Motion, Non-Tender, Normal Capillary Refill, No Pedal Edema Neurological: Alert, Oriented, CN II-XII Intact, Normal Cognition, Normal Gait, Normal Reflexes, No Motor/Sensory Deficits Psychiatric: Flat Affect Skin Exam: Warm, Dry, Intact, Normal Color, No Rash #1 Interpretation EKG Date: 05/18/21 Time: 17:33 Rhythm: Other (sinus rhythm) Rate (Beats/Min): 90 [place]: Normal P-Wave: Present QRS: Normal ST-T: Normal QT: Normal Course - Vital Signs Last Recorded V/S: Last Vital Signs Temp 97.8 F 05/18/21 17:10 Pulse 164 H 05/18/21 17:10 Resp 18 05/18/21 17:10 BP 164/90 H 05/18/21 17:10 Pulse Ox 98 05/18/21 17:10 - Orders/Labs/Meds Orders: Active Orders 24 hr Category Date Time Status EKG 12 Lead [EKG Documentation Completion] [RC] STAT Care 05/18/21 17:14 Active Labs: Laboratory Tests 05/18/21 05/18/21 Range/Units 17:32 17:32 WBC 10.7 H (5.0-10.0) 10^3/uL RBC 5.66 (4.6-6.2) 10^6/uL Hgb 16.7 (14.0-18.0) g/dL Hct 46.7 (40.0-54.0) % MCV 82.5 (80-100) fL MCH 29.5 (27.0-34.0) pg MCHC 35.8 H (33.0-35.0) g/dL Plt Count 256 (150-450) 10^3/uL Neut % (Auto) 90.1 H (42.2-75.2) % Lymph % (Auto) 8.7 L (20.5-50.1) % [place] % (Auto) 0.9 L (2-8) % Eos % (Auto) 0.0 L (1.0-3.0) % Baso % (Auto) 0.3 (0.0-1.0) % Add Manual Diff Yes Neutrophils % (Manual) 71 (42-75) % Band Neutrophils % 17 % Lymphocytes % (Manual) 10 L (20-50) % Metamyelocytes % 1 Myelocytes % 1 Sodium 142 (136-145) mmol/L Potassium 3.8 (3.5-5.1) mmol/L Chloride 102 (98-107) mmol/L Carbon Dioxide 25 (21-32) mmol/L Anion Gap 18.8 H (7-13) mEq/L BUN 10 (7-18) mg/dL Creatinine 1.09 (0.70-1.30) mg/dL Est Cr Clr Drug Dosing 111.02 mL/min Estimated GFR (MDRD) > 60 BUN/Creatinine Ratio 9.2 (No establ ref range) Glucose 121 H (70-99) mg/dL Calcium 9.6 (8.5-10.1) mg/dL Magnesium 1.7 L (1.8-2.4) mg/dL Total Bilirubin 0.6 (0.2-1.0) mg/dL AST 47 H (15-37) U/L ALT 151 H (16-63) U/L Alkaline Phosphatase 264 H (46-116) U/L Total Protein 8.0 (6.4-8.2) g/dL Albumin 4.4 (3.4-5.0) g/dL Globulin 3.6 Albumin/Globulin Ratio 1.2 Meds: Medications Discontinued Medications Generic Name Dose Route Start Last Admin Trade Name Freq PRN Reason Stop Dose Admin Hydroxyzine HCl 25 mg 05/18/21 18:06 05/18/21 18:14 Hydroxyzine Hcl 25 Mg Tab PO 05/18/21 18:07 25 mg ONETIME ONE Administration Prednisone 60 mg 05/18/21 18:06 05/18/21 18:13 Prednisone 20 Mg Tab PO 05/18/21 18:07 60 mg ONETIME ONE Administration - Radiology Interpretation Free Text/Narrative:: XR Sinus: no evidence of sinusitis per Rad. report. Departure - Departure Time of Disposition: 18:18 Disposition: Home, Self-Care 01 Condition: Good Clinical Impression: Allergic sinusitis, Palpitations - Discharge Information *PRESCRIPTION DRUG MONITORING PROGRAM REVIEWED*: Not Applicable *COPY OF PRESCRIPTION DRUG MONITORING REPORT IN PATIENT PATRICK: Not Applicable Instructions: Allergic Rhinitis, Adult, [id number], Palpitations, [id number] Forms: ED Department Discharge Additional Instructions: Continue Amoxicillin as prescribed. Rx: Prednisone 20mg: Three tablets by mouth once daily (60mg) for five days. Take with a meal. Follow up in clinic next week for recheck. Sepsis Event Note (ED) - Focused Exam Vital Signs: Vital Signs Temp Pulse Resp BP Pulse Ox 05/18/21 17:10 97.8 F 164 H 18 164/90 H 98 - My Orders Last 24 Hours: My Active Orders 05/18/21 17:14 EKG 12 Lead [EKG Documentation Completion] [RC] STAT - Assessment/Plan Last 24 Hours: My Active Orders 05/18/21 17:14 EKG 12 Lead [EKG Documentation Completion] [RC] STAT I have read and agree with the documentation that has been completed regarding this visit. By signing this record, I attest that the documentation was completed in my physical presence and is an accurate record of the encounter.
== END 2021-05-18 18:27 | disposition home or self-care (01) ==
LOC: DL.ED 16:57
DX: J30.9 Allergic rhinitis, unspecified (principal); R00.2 Palpitations; K21.9 Gastro-esophageal reflux disease without esophagitis; Z86.16 Personal history of COVID-19; Z88.8 Allergy status to other drugs, medicaments and biological substances; Z79.899 Other long term (current) drug therapy
CPT/HCPCS: 36415; 70220; 80053; 83735; 85025; 93005; 99285; A9270; J7512; 93010; 99284

== ENCOUNTER 2021-07-30 06:05 | Day surgery (SDC) | payer BC ==
[~2021-07-30 06:05] MED LIST: Dextrose 5%-0.45% NaCl 1,000 ML IV SCH; Midazolam 1 MG/ML 2 ML SDV ONE; fentaNYL 100 MCG/2 ML SDV ONE
[2021-07-30] MEDS ORDERED: Midazolam 1 MG/ML 2 ML SDV IV ONE ×4 (06:06→07:15)
[2021-07-30] MEDS ORDERED: fentaNYL 100 MCG/2 ML SDV IV ONE ×3 (06:06→07:10)
[2021-07-30] MEDS ORDERED: Midazolam 1 MG/ML 2 ML SDV ONE (07:30)
--- NOTE | 2021-07-30 07:45 | OR ---
DATE: 07/30/2021 PROCEDURES: Esophagogastroduodenoscopy and multiple pinch biopsies. INSTRUMENT USED: [id number] Olympus video panendoscope. PREMEDICATIONS: No oral or topical anesthesia used, Fentanyl 100 mcg intravenous, Versed 2.5 mg intravenous. The procedure was done under pulse oximetry, BP recording, and library monitor. INDICATION: The patient with persistent abdominal pain, dyspepsia, and bloating, unexplained and not responsive to medical measures, on PPI. Esophagogastroduodenoscopy is performed for detection of any active erosive lesions, [place] esophagus and/or malignancy also under consideration, H pylori status to be determined. Small bowel biopsies to be obtained for celiac disease if indicated, endoscopic hemostasis therapy if needed. PROCEDURE IN DETAIL: The scope was passed with ease. Adequate visualization of the esophagus was made from proximal to distal areas. No upper esophageal lesions identified. No distal esophageal stricture. No uphill or downhill esophageal varices. No [place]os[place]-Manley tear. No evidence of erosive esophagitis by [place] criteria. No esophageal polyp or tumor mass identified. Z-line was seen at around 40 cm distal to the oral verge. No proximal gastric varices noted. Gastric fundus examination by retroflexion showed multiple diminutive benign-appearing polyps. No gastric ulcer, malignant mass, or vascular ectasia identified. Duodenal bulb showed no ulcer. Visualized second part of the duodenum was unremarkable. Multiple pinch biopsies, 4 in number, were taken from different areas of the second part of the duodenum and tissues were also obtained from the duodenal bulb at 9 and 12 o'clock positions and sent for any histopathologic evidence of celiac disease. Multiple pinch biopsies were also obtained from the gastric antrum and proximal body and sent for PyloriTek test for H pylori and histopathology. No bleeding was noted from any of the visualized areas at the completion of examination. Photographs were taken of the duodenal bulb, gastric antrum, fundus, and distal esophagus. IMPRESSION: Diminutive gastric fundus polyps. The patient tolerated the procedure well. [facility] /[id number]
[2021-07-30 09:43] VITALS: BP 139/83; PULSE 64
== END 2021-07-30 09:27 | disposition home or self-care (01) ==
LOC: DL.ENDO 06:05
PROVIDERS: ATTEND Internal Medicine Gastroenterology
DX: K31.89 Other diseases of stomach and duodenum (principal); I78.1 Nevus, non-neoplastic; E66.09 Other obesity due to excess calories; K21.9 Gastro-esophageal reflux disease without esophagitis; K75.81 Nonalcoholic steatohepatitis (NASH); F41.1 Generalized anxiety disorder; Z01.812 Encounter for preprocedural laboratory examination; Z20.822 Contact with and (suspected) exposure to COVID-19
CPT/HCPCS: 87077; J2250; J3010; J7042; U0002

== ENCOUNTER 2021-11-10 12:30 | Emergency (ER) | payer BC ==
[2021-11-10 13:13] VITALS: BP 162/102; PULSE 66
[2021-11-10 14:01] LABS: ANION GAP 15.2 mEq/L (7-13); CHLORIDE,CL 102 mmol/L (98-107); SODIUM,NA 142 mmol/L (136-145)
== END 2021-11-10 16:24 | disposition home or self-care (01) ==
LOC: DL.ED 12:30
DX: K21.00 Gastro-esophageal reflux disease with esophagitis, without bleeding (principal); R74.8 Abnormal levels of other serum enzymes; Z88.8 Allergy status to other drugs, medicaments and biological substances; Z79.899 Other long term (current) drug therapy
CPT/HCPCS: 36415; 71046; 80053; 82150; 83605; 83690; 84484; 85025; 86140; 93005; 99285-25

== ENCOUNTER 2021-11-14 18:19 | Emergency (ER) | payer BC ==
[2021-11-14] MEDS ORDERED: hydrALAZINE 20 MG/ML SDV IVPUSH ONE (19:43)
[2021-11-14 19:48] LABS: CHLORIDE,CL 103 mmol/L (98-107); SODIUM,NA 139 mmol/L (136-145)
[2021-11-14 19:59] VITALS: BP 152/98; PULSE 79
[2021-11-14 20:36] LABS: AMPHETAMINES,URINE NEGATIVE (NEGATIVE); BARBITURATES,URINE NEGATIVE (NEGATIVE); BENZODIAZEPINE,URINE NEGATIVE (NEGATIVE); MDMA (ECSTASY), URINE NEGATIVE (NEGATIVE); METHADONE,URINE NEGATIVE (NEGATIVE); METHAMPHETAMINES,URINE NEGATIVE (NEGATIVE); OPIATES,URINE NEGATIVE (NEGATIVE); OXYCODONE,URINE NEGATIVE (NEGATIVE); PHENCYCLIDINE,URINE NEGATIVE (NEGATIVE); TCA,URINE NEGATIVE (NEGATIVE)
[2021-11-14 20:38] LABS: CORONAVIRUS COVID-19 NAA NEGATIVE (NEGATIVE)
[2021-11-14] MEDS ORDERED: LORazepam 2 MG/ML SDV IVPUSH ONE (20:51)
== END 2021-11-14 21:59 | disposition home or self-care (01) ==
LOC: DL.ED 18:19
DX: K21.00 Gastro-esophageal reflux disease with esophagitis, without bleeding (principal); F41.9 Anxiety disorder, unspecified; I10 Essential (primary) hypertension; Z88.8 Allergy status to other drugs, medicaments and biological substances; Z20.822 Contact with and (suspected) exposure to COVID-19
CPT/HCPCS: 0240U; 36415; 80053; 80305-QW; 82150; 83690; 84484; 85025; 85610; 93005; 93010; 96374; 96375; 99284; 99285-25; J0360; J2060

== ENCOUNTER 2022-04-27 12:32 | Emergency (ER) | payer BC ==
[2022-04-27] MEDS ORDERED: Sodium Chloride 0.9% 10 ML Syringe FLUSH PRN (13:13)
[2022-04-27 13:21] VITALS: BP 143/97; PULSE 72
[2022-04-27] MEDS ORDERED: GI Cocktail Oral Solution 30 ML PO ONE (13:45)
[2022-04-27 13:52] LABS: AMPHETAMINES,URINE NEGATIVE (NEGATIVE); BARBITURATES,URINE NEGATIVE (NEGATIVE); BENZODIAZEPINE,URINE NEGATIVE (NEGATIVE); MDMA (ECSTASY), URINE NEGATIVE (NEGATIVE); METHADONE,URINE NEGATIVE (NEGATIVE); METHAMPHETAMINES,URINE NEGATIVE (NEGATIVE); OPIATES,URINE NEGATIVE (NEGATIVE); OXYCODONE,URINE NEGATIVE (NEGATIVE); PHENCYCLIDINE,URINE NEGATIVE (NEGATIVE); TCA,URINE NEGATIVE (NEGATIVE)
[2022-04-27 13:57] LABS: CHLORIDE,CL 104 mmol/L (98-107); SODIUM,NA 141 mmol/L (136-145)
[2022-04-27 13:58] LABS: ESTIMATED GFR 93 mL/min (>=60)
[2022-04-27] MEDS ORDERED: Ketorolac 30 MG/ML SDV IM ONE (14:30)
== END 2022-04-27 15:08 | disposition home or self-care (01) ==
LOC: DL.ED 12:32
DX: R07.89 Other chest pain (principal); K21.9 Gastro-esophageal reflux disease without esophagitis; Z88.8 Allergy status to other drugs, medicaments and biological substances; Z79.899 Other long term (current) drug therapy; Z86.16 Personal history of COVID-19; Z90.49 Acquired absence of other specified parts of digestive tract; Z87.891 Personal history of nicotine dependence
CPT/HCPCS: 36415; 71045; 80053; 80305-QW; 80307; 81003; 82150; 83690; 83735; 84443; 84484; 85025; 93005; 93010; 99284; 99285; A9270-GY

== ENCOUNTER 2023-12-06 07:51 | Emergency (ER) | payer BC ==
[2023-12-06 08:12] VITALS: BP 157/112; PULSE 113
[2023-12-06] MEDS: Sodium Chloride 0.9% 10 ML Syringe FLUSH PRN (08:22)
[2023-12-06 08:25] LABS: BASOPHILS PERCENT AUTO 0.3 % (0.0-1.0); EOSINOPHILS PERCENT AUTO 0.7 % (1.0-3.0); HEMATOCRIT 48.7 % (40.0-54.0); HEMOGLOBIN 17.1 g/dL (14.0-18.0); LYMPHOCYTES PERCENT AUTO 21.1 % (20.5-50.1); MEAN CORPUSCULAR HGB CONC 35.1 g/dL (33.0-35.0); MEAN CORPUSCULAR VOLUME 82.7 fL (80-100); MONOCYTES PERCENT AUTO 4.8 % (2-8); NEUTROPHILS PERCENT AUTO 73.1 % (42.2-75.2); PLATELET COUNT,PLT 263 10^3/uL (150-450); RED BLOOD CELL COUNT 5.89 10^6/uL (4.6-6.2); WHITE BLOOD CELL COUNT,WBC 12.5 10^3/uL (5.0-10.0)
[2023-12-06 08:43] LABS: PTT,PARTIAL THROMBOPLSTIN TIME 25.3 SEC (22.0-34.0)
[2023-12-06 08:49] LABS: A/G RATIO 1.3; ALANINE AMINOTRANSFERASE,ALT 174 U/L (16-63); ALBUMIN 4.5 g/dL (3.4-5.0); ALKALINE PHOSPHATASE 348 U/L (46-116); ANION GAP 14.8 mEq/L (7-13); ASPARTATE AMNIOTRANSFERASE,AST 59 U/L (15-37); BILIRUBIN TOTAL 0.7 mg/dL (0.2-1.0); BLOOD UREA NITROGEN,BUN 13 mg/dL (7-18); BUN/CREATININE RATIO 10.8 (No establ ref range); CALCIUM 9.7 mg/dL (8.5-10.1); CARBON DIOXIDE,CO2 24 mmol/L (21-32); CHLORIDE,CL 102 mmol/L (98-107); EST CRCL DRUG DOSING (CG) 97.99 mL/min; ESTIMATED GFR 80 mL/min (>=60); GLUCOSE RANDOM 123 mg/dL (70-99); MAGNESIUM 1.7 mg/dL (1.8-2.4); POTASSIUM,K 3.8 mmol/L (3.5-5.1); PROTEIN TOTAL,TP 7.9 g/dL (6.4-8.2); SODIUM,NA 137 mmol/L (136-145)
[2023-12-06 08:50] LABS: C-REACTIVE PROTEIN < 0.50 ng/dL (<=0.50); ETHANOL BLOOD MEDICAL < 3 mg/dL (0)
[2023-12-06 08:53] LABS: LACTIC ACID 2.4 mmol/L (0.4-2.0)
[2023-12-06 09:10] LABS: CORONAVIRUS COVID-19 NAA NEGATIVE (NEGATIVE); INFLUENZA A NAA NEGATIVE (NEGATIVE); INFLUENZA B NAA NEGATIVE (NEGATIVE); RESPIRATORY SYNCYTIAL VIR NAA NEGATIVE (NEGATIVE)
[2023-12-06 09:47] LABS: APPEARANCE,URINE CLEAR (CLEAR); BILIRUBIN,URINE NEGATIVE (NEGATIVE); COLOR,URINE YELLOW (YELLOW); GLUCOSE,URINE NEGATIVE (NEGATIVE); KETONES,URINE NEGATIVE (NEGATIVE); LEUKOCYTE ESTERASE,URINE NEGATIVE (NEGATIVE); NITRITE,URINE NEGATIVE (NEGATIVE); OCCULT BLOOD,URINE NEGATIVE (NEGATIVE); PH,URINE 8.5 (5.0-9.0); PROTEIN,URINE NEGATIVE (NEGATIVE); UROBILINOGEN,URINE 0.2 mg/dL (0.2-1.0)
[2023-12-06 09:51] LABS: AMPHETAMINES,URINE NEGATIVE (NEGATIVE); BARBITURATES,URINE NEGATIVE (NEGATIVE); BENZODIAZEPINE,URINE NEGATIVE (NEGATIVE); MDMA (ECSTASY), URINE NEGATIVE (NEGATIVE); METHADONE,URINE NEGATIVE (NEGATIVE); METHAMPHETAMINES,URINE NEGATIVE (NEGATIVE); OPIATES,URINE NEGATIVE (NEGATIVE); OXYCODONE,URINE NEGATIVE (NEGATIVE); PHENCYCLIDINE,URINE NEGATIVE (NEGATIVE); TCA,URINE NEGATIVE (NEGATIVE)
== END 2023-12-06 10:10 | disposition home or self-care (01) ==
LOC: DL.ED 07:51
DX: F41.9 Anxiety disorder, unspecified (principal); K21.9 Gastro-esophageal reflux disease without esophagitis; Z88.8 Allergy status to other drugs, medicaments and biological substances; Z86.16 Personal history of COVID-19; Z79.899 Other long term (current) drug therapy
CPT/HCPCS: 0241U; 36415; 71045; 80053; 80305; 80307; 81003; 83605; 83735; 84145; 84484; 85025; 85610; 85730; 86140; 93005; 93010; 99284; 99285; J3490